=== PATIENT | female | born 1980 | race Hispanic/Latino ===

== ENCOUNTER 2017-07-01 08:15 | Inpatient (IN) | payer OTHER ==
[2017-07-01] MEDS ORDERED: NACL 0.9% 1000 ML 1,000 ML ONE ×2 (08:19→15:56)
[2017-07-01] MEDS ORDERED: NARCAN 2 MG/2 ML ONE (08:20)
[2017-07-01] MEDS ORDERED: NACL 0.9% 1000 ML 1,000 ML IV ONE (08:20)
[2017-07-01] MEDS ORDERED: QUELICIN IV ONE (08:22)
[2017-07-01] MEDS ORDERED: AMIDATE IV ONE (08:22)
[2017-07-01] MEDS ORDERED: DIPRIVAN 10 MG/ML 1,000 MG/100 ML BOTTLE IV ONE (08:29)
[2017-07-01] MEDS: DIPRIVAN 10 MG/ML 1,000 MG/100 ML BOTTLE IV SCH ×2 (08:33→15:12)
[2017-07-01] MEDS ORDERED: VASELINE LIP THERAPY TP PRN (08:40)
[2017-07-01] MEDS ORDERED: ARTIFICIAL TEARS OPHTH OINT OU PRN (08:40)
[2017-07-01] MEDS ORDERED: ZEMURON IV ONE ×2 (08:44→09:45)
[2017-07-01] MEDS ORDERED: KEPPRA 1,000 MG/NS 0.75% 100ML 1,000 MG/100 ML BAG IV ONE (08:47)
[2017-07-01] MEDS ORDERED: NACL 0.9% 500 ML IV SCH (09:00)
[2017-07-01 09:08] LABS: Basophils % (Auto) 0.3 % (0.0-1.8); Eosinophils % (Auto) 0.2 % (0.0-4.3); Hematocrit 39.7 % (30.3-42.9); Hemoglobin 12.6 gm/dl (10.1-14.3); Mean Corpuscular HGB Conc 32 % (30-34); Mean Corpuscular Hemoglobin 34 pg (28-32); Mean Corpuscular Volume 108 fl (79-97); Platelet Count 258 K/mm3 (140-440); Red Blood Count 3.69 M/mm3 (3.65-5.03); Red Cell Distribution Width 13.8 % (13.2-15.2)
--- NOTE | 2017-07-01 09:26 | XRay Report ---
AP CHEST: HISTORY: Endotracheal tube placement. An endotracheal tube has been inserted which terminates 4 cm superior to the christo. A nasogastric tube is followed to the body of the stomach. Normal heart and mediastinal structures. The lungs are clear. Chronic appearing left postero-lateral seventh rib deformity is noted. 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 IMPRESSION: Adequate placement of the endotracheal tube. No acute cardiopulmonary process identified.
[2017-07-01] MEDS: fentaNYL DRIP Premix 2,000 MCG/100 ML BAG IV SCH ×2 (09:30→15:15)
[2017-07-01 09:50] LABS: Alanine Aminotransferase 43 units/L (7-56); Albumin 4.2 g/dL (3.9-5); Albumin/Globulin Ratio 1.9 %; Alkaline Phosphatase 105 units/L (35-129); Anion Gap 35 mmol/L; BUN/Creatinine Ratio 21; Bilirubin,Total < 0.20 mg/dL (0.1-1.2); Blood Urea Nitrogen 17 mg/dL (7-17); Calcium 8.3 mg/dL (8.4-10.2); Carbon Dioxide 12 mmol/L (22-30); Chloride 100.5 mmol/L (98-107); Glucose 267 mg/dL (65-100); Potassium 4.5 mmol/L (3.6-5.0); Sodium 143 mmol/L (137-145); Total Protein 6.4 g/dL (6.3-8.2)
[2017-07-01 09:56] LABS: Bilirubin,Direct < 0.2 mg/dL (0-0.2)
[2017-07-01 09:58] LABS: Urine Drugs of Abuse Note Disclamer
[2017-07-01 10:00] LABS: ISTAT Base Excess -9; ISTAT HCO3 17.8; ISTAT PCO2 37.8 (35-45); ISTAT PH 7.281 (7.35-7.45); ISTAT PO2 180 (80-105); ISTAT SO2 99; ISTAT TCO2 19
[2017-07-01] MEDS ORDERED: NORCURON IV ONE (10:00)
[2017-07-01 10:19] LABS: Bilirubin,Urine NEG (Negative); Blood,Urine LG (Negative); Ketones,Urine NEG (Negative); Leukocyte Esterase,Urine NEG (Negative); Mucus,Urine FEW /HPF; Nitrite,Urine NEG (Negative); Urobilinogen,Urine < 2.0 mg/dL (<2.0)
[2017-07-01] MEDS ORDERED: [UNRECOGNIZED DRUG - OTHER] IV ONE (10:44)
[2017-07-01] MEDS ORDERED: KETALAR IV ONE ×2 (10:50→12:00)
--- NOTE | 2017-07-01 11:21 | History and Physical Report ---
History of Present Illness Chief complaint: Seizure, Unresponsive History of present illness: 37 YO Female with Unknown PMH presents to ED for evaluation. Pt unable to provide history. Pt history taken from EMS and ED staff. Pt was observed having seizure activity on a [employer] bus. EMS notified, and upon arrival the patient was found to have active seizure activity as well as serum glucose of around 200. On exam the patient was lethargic, and hypoxic. EMS described activity as a generalized tonic clonic seizure. Pt was given Ativan, and versed for recurrent seizure activity. Pt developed respiratory distress suspected due to aspiration of gastric contents. EMS placed a nasal trumpet and actually used an adapter to bag the patient through the nasal trumpet. EMS state that the suspect patient took "Flakka". Pt seen and evaluated in ED and found to be in respiratory distress and is unable to protect her airway. Pt intubated and placed on vent support and admitted to ICU. No reports of fever, chills, CP, Palpitations, NVD, Syncope, Trauma, BRBPR, or known recent ill contacts. Past History Past Medical History: No medical history, other (Unobtainable) Past Surgical History: No surgical history, Other (Unobtainable) Social history: single, smoking, other (Unobtainable) Family history: no significant family history, other (unobtainable) Medications and Allergies Allergies Allergy/AdvReac Type Severity Reaction Status Date / Time Unable to Assess Allergy Verified 07/01/17 08:29 Active Meds: Active Medications Fomepizole (Antizol) 730 mg 15 mg/kg (730 mg) IV ONCE ONE Stop: 07/01/17 10:45 Hydrophilic Ointment (Vaseline Lip Therapy) 1 applic TP Q2HR PRN PRN Reason: Dry Lips Fentanyl Citrate (Fentanyl Drip Premix) 2,000 mcg in 100 mls @ 2.435 mls/hr IV TITR DUANE; 1 MCG/KG/HR PRN Reason: Protocol Last Titration: 07/01/17 10:15 Dose: 4 mcg/kg/hr, 9.74 mls/hr Propofol (Diprivan 10 Mg/Ml) 1,000 mg in 100 mls @ 1.461 mls/hr IV TITR DUANE; 5 MCG/KG/MIN PRN Reason: Protocol Last Titration: 07/01/17 09:50 Dose: 50 mcg/kg/min, 14.61 mls/hr Ketamine HCl (Ketalar) 100 mg IV ONCE ONE Stop: 07/01/17 12:01 Multi-Ingred Cream/Lotion/Oil/Oint (Artificial Tears Ophth Oint) 1 applic OU Q4HR PRN PRN Reason: Dry Eye(s) Sodium Chloride (Nacl 0.9% 500 Ml) 1 ml IV DIRECT DUANE Review of Systems ROS unobtainable: due to mental status Exam - Constitutional Vitals: Temp Pulse Resp BP Pulse Ox 98.3 F 104 H 18 115/77 100 07/01/17 08:29 07/01/17 10:30 07/01/17 10:30 07/01/17 10:30 07/01/17 10:30 General appearance: Present: severe distress - EENT Eyes: Present: PERRL ENT: hearing intact, clear oral mucosa - Neck Neck: Present: supple, normal ROM - Respiratory Respiratory effort: labored Respiratory: bilateral: diminished, rhonchi - Cardiovascular Heart Sounds: Present: S1 & S2. Absent: rub, click - Extremities Extremities: pulses symmetrical, No edema Peripheral Pulses: within normal limits - Abdominal General gastrointestinal: Present: soft, non-tender, non-distended, normal bowel sounds Female genitourinary: Present: normal - Integumentary Integumentary: Present: dry, pale, decreased turgor - Musculoskeletal Musculoskeletal: generalized weakness - Psychiatric Psychiatric: no intact judgment & insight, no memory intact - Neurologic Neurologic: no gait normal Results - Labs CBC & Chem 7: 07/01/17 08:30 07/01/17 10:32 Labs: Abnormal lab results 07/01/17 07/01/17 07/01/17 Range/Units 08:28 08:30 08:30 WBC 18.0 H (4.5-11.0) K/mm3 MCV 108 H (79-97) fl MCH 34 H (28-32) pg Lymph % (Auto) 10.9 L (13.4-35.0) % Seg Neutrophils % 86.2 H (40.0-70.0) % Seg Neutrophils # 15.5 H (1.8-7.7) K/mm3 POC ABG pH (7.35-7.45) POC ABG pO2 (80-105) Carbon Dioxide 12 L (22-30) mmol/L Glucose 267 H (65-100) mg/dL POC Glucose 213 H (70-105) Calcium 8.3 L (8.4-10.2) mg/dL Salicylates (2.8-20.0) mg/dL 07/01/17 07/01/17 Range/Units 08:30 09:55 WBC (4.5-11.0) K/mm3 MCV (79-97) fl MCH (28-32) pg Lymph % (Auto) (13.4-35.0) % Seg Neutrophils % (40.0-70.0) % Seg Neutrophils # (1.8-7.7) K/mm3 POC ABG pH 7.281 L (7.35-7.45) POC ABG pO2 180 H (80-105) Carbon Dioxide (22-30) mmol/L Glucose (65-100) mg/dL POC Glucose (70-105) Calcium (8.4-10.2) mg/dL Salicylates < 0.3 L (2.8-20.0) mg/dL Assessment and Plan - Patient Problems (1) Sepsis Current Visit: Yes Status: Acute Qualifiers: Sepsis type: S Plan to address problem: Sepsis protocol: IV abx, monitor uop q shift, serial lactic acid, IVF resuscitation, IV pressor support as clinically indicated, blood cultures, Urinalysis, The high probability of a clinically significant, sudden or life threatening deterioration of the [Neurologic, pulmonary, renal] system(s) required my full and direct attention, intervention and personal management. The aggregate critical care time was [65] minutes. This time is in addition to time spent performing reported procedures but includes the following: [x] Data Review and interpretation [x] Patient assessment and monitoring of vital signs [x] Documentation [x] Medication orders and management (2) Acute respiratory failure Current Visit: Yes Status: Acute Qualifiers: Respiratory failure complication: R Plan to address problem: Pulmonary consulted, wean vent as tolerated, SBT daily, daily sedation holiday, ABG, supplemental oxygen, nebs, supportive care. (3) Aspiration pneumonia Current Visit: Yes Status: Acute Qualifiers: Aspiration pneumonia type: due to gastric secretions Laterality: bilateral Lung location: lower lobe of lung Qualified Code(s): J69.0 - Pneumonitis due to inhalation of food and vomit Plan to address problem: Pneumonia protocol: IV abs, supportive care, blood cultures, pulmonary toilet, (4) Encephalopathy Current Visit: Yes Status: Acute Plan to address problem: toxic Encephalopathy: supportive care, poison control notified regarding suspected flakka ingestion. Recommend Fomipazole. and continued monitoring. Treat sepsis, IVF resuscitation, (5) Drug overdose Current Visit: Yes Status: Acute Qualifiers: Encounter type: E Injury intent: I (6) Metabolic acidosis, increased anion gap Current Visit: Yes Status: Suspected Plan to address problem: Poison control notified regarding suspected Flakka ingestion. Fomipazole given in ED. (7) Recurrent seizures Current Visit: Yes Status: Acute Plan to address problem: Keppra therapy, Pt loaded in ED, neuro checks, CT head, supportive care. (8) DVT prophylaxis Current Visit: Yes Status: Acute
[2017-07-01] MEDS ORDERED: MILK OF MAGNESIA PO PRN (11:22)
[2017-07-01] MEDS ORDERED: ALUM-MAG HYDROX-SIMETH 200-200-20MG/5ML PO PRN (11:22)
[2017-07-01] MEDS ORDERED: DULCOLAX PR PRN (11:22)
[2017-07-01] MEDS ORDERED: PROVENTIL IH PRN (11:22)
[2017-07-01 11:35] LABS: Creatine Kinase MB 8.4 ng/mL (0.0-4.0)
--- NOTE | 2017-07-01 11:37 | Cat Scan Report ---
CT HEAD WITHOUT CONTRAST INDICATION: Seizure. COMPARISON: None similar. FINDINGS: Noncontrast head CT demonstrates symmetric ventricles and sulci, allowing for the head tilt, without acute or recent infarct, hemorrhage, mass effect or midline shift. No abnormal extra-axial fluid collections. Posterior fossa structures and basilar cisterns appear within normal limits. Clear imaged paranasal sinuses and mastoid air cells. Intact calvarium. Normal overlying scalp soft tissues. Endotracheal and esophagogastric tubes noted. CONCLUSION: No acute intracranial CT abnormality in this intubated patient, as described. Thank you for the opportunity to participate in this patient's care.
[2017-07-01 11:38] LABS: Anion Gap 22 mmol/L; BUN/Creatinine Ratio 25; Blood Urea Nitrogen 15 mg/dL (7-17); Calcium 7.8 mg/dL (8.4-10.2); Carbon Dioxide 18 mmol/L (22-30); Chloride 107.9 mmol/L (98-107); Creatine Kinase 851 units/L (30-135); Glucose 135 mg/dL (65-100); Potassium 3.8 mmol/L (3.6-5.0); Sodium 144 mmol/L (137-145)
[2017-07-01] MEDS ORDERED: NACL 0.9% IV SCH (12:00)
[2017-07-01] MEDS ORDERED: NACL 0.9% 1000 ML IV ONE (12:00)
[2017-07-01] MEDS ORDERED: ANTIZOL IV SCH (12:00)
--- NOTE | 2017-07-01 12:01 | Emergency Department Report ---
ED General Adult HPI - General Chief complaint: Seizure Stated complaint: SEIZURE Time Seen by Provider: 07/01/17 08:40 Source: EMS Mode of arrival: Stretcher Limitations: Other - History of Present Illness Initial comments: The patient apparently was exhibiting seizure activity on a [employer] bus. At the time of EMS response they considered this to be seizure activity. They described it as a generalized shaking. They did check her glucose and found it to be over 200. They stated that they gave several doses of benzodiazepines to include Versed 2 and Ativan 1 for the seizure activity which they stated was recurrent. The patient became sedated and hypoxic. They placed a nasal trumpet and actually used an adapter to bag the patient through the nasal trumpet. She arrives altered/agitated with the nasal trumpet in place. Her pulse oximetry was reading in the mid to high 90s. Medics somehow believed that the patient had taken "Flakka". I do not know that they had any reason to know that beyond speculation. They stated that they had seen patient's after said indigestion acts like her before. However there was no specific consistent history. -: Sudden Radiation: other (no injury reported) Severity scale (0 -10): 0 Consistency: intermittent Improves with: none Worsens with: none - Related Data Allergies Allergy/AdvReac Type Severity Reaction Status Date / Time Unable to Assess Allergy Verified 07/01/17 08:29 ED Review of Systems ROS: Stated complaint: SEIZURE Other details as noted in HPI Comment: Unobtainable due to pts medical conditions ED Past Medical Hx - Past Medical History Additional medical history: unknown - Surgical History Additional Surgical History: unknown - Social History Smoking Status: Unknown if ever smoked Substance Use Type: Other (suspected substance abuse) ED Physical Exam - General Limitations: Other - Head Head exam: Present: atraumatic, normocephalic - Eye Eye exam: Present: normal appearance - ENT ENT exam: Present: mucous membranes moist - Neck Neck exam: Present: normal inspection - Respiratory Respiratory exam: Present: normal lung sounds bilaterally. Absent: respiratory distress - Cardiovascular Cardiovascular Exam: Present: regular rate, normal rhythm. Absent: systolic murmur, diastolic murmur, rubs, gallop - GI/Abdominal GI/Abdominal exam: Present: soft, normal bowel sounds. Absent: distended, tenderness, guarding, rebound, rigid - Extremities Exam Extremities exam: Present: normal inspection - Back Exam Back exam: Present: normal inspection - Neurological Exam Neurological exam: Present: altered, CN II-XII intact (as testable limited exam dilated pupils reactive no disconjugate case), other (exam is nonfocal). Absent : motor sensory deficit - Psychiatric Psychiatric exam: Present: agitated, flat affect - Skin Skin exam: Present: warm, dry, intact, normal color. Absent: rash ED Course Vital Signs 07/01/17 07/01/17 07/01/17 08:20 08:29 08:30 Temperature 98.3 F Pulse Rate 106 H 139 H 139 H Respiratory 36 H 13 Rate Blood Pressure 141/70 141/70 O2 Sat by Pulse 99 Oximetry 07/01/17 07/01/17 07/01/17 08:40 08:46 09:00 Temperature Pulse Rate 136 H Respiratory 30 H 18 Rate Blood Pressure 168/104 O2 Sat by Pulse 100 100 Oximetry 07/01/17 07/01/17 07/01/17 09:12 09:15 09:16 Temperature Pulse Rate 140 H 134 H Respiratory 20 23 Rate Blood Pressure 215/176 212/185 O2 Sat by Pulse 100 Oximetry 07/01/17 07/01/17 07/01/17 09:30 09:32 09:34 Temperature Pulse Rate 130 H Respiratory 17 Rate Blood Pressure 170/143 O2 Sat by Pulse 100 127 H Oximetry 07/01/17 07/01/17 07/01/17 09:45 10:00 10:15 Temperature Pulse Rate 130 H 132 H 113 H Respiratory 18 30 H 18 Rate Blood Pressure 118/69 118/69 124/82 O2 Sat by Pulse 100 100 100 Oximetry 07/01/17 07/01/17 07/01/17 10:24 10:30 10:45 Temperature Pulse Rate 104 H 100 H Respiratory 18 18 18 Rate Blood Pressure 115/77 113/75 O2 Sat by Pulse 100 100 Oximetry 07/01/17 07/01/17 07/01/17 11:20 11:30 11:45 Temperature Pulse Rate 92 H 87 Respiratory 18 18 Rate Blood Pressure 127/87 126/87 130/87 O2 Sat by Pulse Oximetry - Reevaluation(s) Reevaluation #1: Patient required R side to protect her airway and to facilitate medical management. This was done without difficulty. An orogastric tube was also placed. The patient remained stable as far as her pulse oximetry and vital signs. She continued to be severely agitated. She required neuromuscular blockade after she maxed out on propofol and fentanyl. In addition she was given ketamine for sedation. I spoke to the manager of warehouse at poison control center. We agreed that it would be prudent to give the patient one dose of fomepizole considering her high anion gap metabolic acidosis and seizures. She was also noted to be hypo- Calcemic. She was given calcium gluconate. She was given IV fluids. Additional workup to include volatile alcohols as well as as osmolality and CK were ordered. Ultimately the patient was admitted by Dr. Sosa of the hospitalist service to the intensive care unit for further evaluation and treatment. 07/01/17 12:47 Reevaluation #2: Patient does have an elevated lactic acid and metabolic acidosis. However, this is all after recurrent seizures. It is possibly explainable considering this. The white count is 18,000. I don't think that is diagnostic in any way. I will leave the choice as to antibiotic coverage up to Dr. Sosa. I have found no focus of infection. 07/01/17 12:52 ED Medical Decision Making - Lab Data Result diagrams: 07/01/17 08:30 07/01/17 10:32 Laboratory Results - last 24 hr 07/01/17 07/01/17 07/01/17 08:30 08:30 08:30 WBC 18.0 H RBC 3.69 Hgb 12.6 Hct 39.7 MCV 108 H MCH 34 H MCHC 32 RDW 13.8 Plt Count 258 Lymph % (Auto) 10.9 L [place] % (Auto) 2.4 Eos % (Auto) 0.2 Baso % (Auto) 0.3 Lymph # 2.0 [place] # 0.4 Eos # 0.0 Baso # 0.1 Seg Neutrophils % 86.2 H Seg Neutrophils # 15.5 H POC ABG pH POC ABG pCO2 POC ABG pO2 POC ABG HCO3 POC ABG Total CO2 POC ABG O2 Sat POC ABG Base Excess FiO2 Sodium 143 Potassium 4.5 Chloride 100.5 Carbon Dioxide 12 L Anion Gap 35 BUN 17 Creatinine 0.8 Estimated GFR > 60 BUN/Creatinine Ratio 21 Glucose 267 H Calcium 8.3 L Magnesium 2.20 Total Bilirubin < 0.20 Direct Bilirubin < 0.2 AST 40 ALT 43 Alkaline Phosphatase 105 Total Protein 6.4 Albumin 4.2 Albumin/Globulin Ratio 1.9 Urine Color Urine Turbidity Urine pH Ur Specific [place] Urine Protein Urine Glucose (UA) Urine Ketones Urine Blood Urine Nitrite Urine Bilirubin Urine Urobilinogen Ur Leukocyte Esterase Urine WBC (Auto) Urine RBC (Auto) U Epithel Cells (Auto) Urine Mucus Urine HCG, Qual 07/01/17 07/01/17 09:49 09:55 WBC RBC Hgb Hct MCV MCH MCHC RDW Plt Count Lymph % (Auto) [place] % (Auto) Eos % (Auto) Baso % (Auto) Lymph # [place] # Eos # Baso # Seg Neutrophils % Seg Neutrophils # POC ABG pH 7.281 L POC ABG pCO2 37.8 POC ABG pO2 180 H POC ABG HCO3 17.8 POC ABG Total CO2 19 POC ABG O2 Sat 99 POC ABG Base Excess -9 FiO2 50 Sodium Potassium Chloride Carbon Dioxide Anion Gap BUN Creatinine Estimated GFR BUN/Creatinine Ratio Glucose Calcium Magnesium Total Bilirubin Direct Bilirubin AST ALT Alkaline Phosphatase Total Protein Albumin Albumin/Globulin Ratio Urine Color Red Urine Turbidity Clear Urine pH 5.0 Ur Specific [place] 1.013 Urine Protein 30 mg/dl Urine Glucose (UA) 150 Urine Ketones Neg Urine Blood Lg Urine Nitrite Neg Urine Bilirubin Neg Urine Urobilinogen < 2.0 Ur Leukocyte Esterase Neg Urine WBC (Auto) 1.0 Urine RBC (Auto) 1.0 U Epithel Cells (Auto) 1.0 Urine Mucus Few Urine HCG, Qual Negative Laboratory Results - last 24 hr 07/01/17 07/01/17 07/01/17 08:30 08:30 08:30 WBC 18.0 H RBC 3.69 Hgb 12.6 Hct 39.7 MCV 108 H MCH 34 H MCHC 32 RDW 13.8 Plt Count 258 Lymph % (Auto) 10.9 L [place] % (Auto) 2.4 Eos % (Auto) 0.2 Baso % (Auto) 0.3 Lymph # 2.0 [place] # 0.4 Eos # 0.0 Baso # 0.1 Seg Neutrophils % 86.2 H Seg Neutrophils # 15.5 H POC ABG pH POC ABG pCO2 POC ABG pO2 POC ABG HCO3 POC ABG Total CO2 POC ABG O2 Sat POC ABG Base Excess FiO2 Sodium 143 Potassium 4.5 Chloride 100.5 Carbon Dioxide 12 L Anion Gap 35 BUN 17 Creatinine 0.8 Estimated GFR > 60 BUN/Creatinine Ratio 21 Glucose 267 H Calcium 8.3 L Magnesium 2.20 Total Bilirubin < 0.20 Direct Bilirubin < 0.2 AST 40 ALT 43 Alkaline Phosphatase 105 Total Protein 6.4 Albumin 4.2 Albumin/Globulin Ratio 1.9 Urine Color Urine Turbidity Urine pH Ur Specific [place] Urine Protein Urine Glucose (UA) Urine Ketones Urine Blood Urine Nitrite Urine Bilirubin Urine Urobilinogen Ur Leukocyte Esterase Urine WBC (Auto) Urine RBC (Auto) U Epithel Cells (Auto) Urine Mucus Urine HCG, Qual 07/01/17 07/01/17 09:49 09:55 WBC RBC Hgb Hct MCV MCH MCHC RDW Plt Count Lymph % (Auto) [place] % (Auto) Eos % (Auto) Baso % (Auto) Lymph # [place] # Eos # Baso # Seg Neutrophils % Seg Neutrophils # POC ABG pH 7.281 L POC ABG pCO2 37.8 POC ABG pO2 180 H POC ABG HCO3 17.8 POC ABG Total CO2 19 POC ABG O2 Sat 99 POC ABG Base Excess -9 FiO2 50 Sodium Potassium Chloride Carbon Dioxide Anion Gap BUN Creatinine Estimated GFR BUN/Creatinine Ratio Glucose Calcium Magnesium Total Bilirubin Direct Bilirubin AST ALT Alkaline Phosphatase Total Protein Albumin Albumin/Globulin Ratio Urine Color Red Urine Turbidity Clear Urine pH 5.0 Ur Specific [place] 1.013 Urine Protein 30 mg/dl Urine Glucose (UA) 150 Urine Ketones Neg Urine Blood Lg Urine Nitrite Neg Urine Bilirubin Neg Urine Urobilinogen < 2.0 Ur Leukocyte Esterase Neg Urine WBC (Auto) 1.0 Urine RBC (Auto) 1.0 U Epithel Cells (Auto) 1.0 Urine Mucus Few Urine HCG, Qual Negative Laboratory Results - last 24 hr 07/01/17 07/01/17 07/01/17 08:28 08:30 08:30 WBC 18.0 H RBC 3.69 Hgb 12.6 Hct 39.7 MCV 108 H MCH 34 H MCHC 32 RDW 13.8 Plt Count 258 Lymph % (Auto) 10.9 L [place] % (Auto) 2.4 Eos % (Auto) 0.2 Baso % (Auto) 0.3 Lymph # 2.0 [place] # 0.4 Eos # 0.0 Baso # 0.1 Seg Neutrophils % 86.2 H Seg Neutrophils # 15.5 H POC ABG pH POC ABG pCO2 POC ABG pO2 POC ABG HCO3 POC ABG Total CO2 POC ABG O2 Sat POC ABG Base Excess FiO2 Sodium 143 Potassium 4.5 Chloride 100.5 Carbon Dioxide 12 L Anion Gap 35 BUN 17 Creatinine 0.8 Estimated GFR > 60 BUN/Creatinine Ratio 21 Glucose 267 H POC Glucose 213 H Osmolality Lactic Acid Calcium 8.3 L Magnesium Total Bilirubin < 0.20 Direct Bilirubin < 0.2 AST 40 ALT 43 Alkaline Phosphatase 105 Total Creatine Kinase CK-MB (CK-2) CK-MB (CK-2) Rel Index Total Protein 6.4 Albumin 4.2 Albumin/Globulin Ratio 1.9 Urine Color Urine Turbidity Urine pH Ur Specific [place] Urine Protein Urine Glucose (UA) Urine Ketones Urine Blood Urine Nitrite Urine Bilirubin Urine Urobilinogen Ur Leukocyte Esterase Urine WBC (Auto) Urine RBC (Auto) U Epithel Cells (Auto) Urine Mucus Urine HCG, Qual Salicylates Urine Opiates Screen Urine Methadone Screen Acetaminophen Ur Barbiturates Screen Ur Phencyclidine Scrn Ur Amphetamines Screen U Benzodiazepines Scrn Urine Cocaine Screen U Marijuana (THC) Screen Drugs of Abuse Note Plasma/Serum Alcohol Blood Type Antibody Screen 07/01/17 07/01/17 07/01/17 08:30 08:30 08:30 WBC RBC Hgb Hct MCV MCH MCHC RDW Plt Count Lymph % (Auto) [place] % (Auto) Eos % (Auto) Baso % (Auto) Lymph # [place] # Eos # Baso # Seg Neutrophils % Seg Neutrophils # POC ABG pH POC ABG pCO2 POC ABG pO2 POC ABG HCO3 POC ABG Total CO2 POC ABG O2 Sat POC ABG Base Excess FiO2 Sodium Potassium Chloride Carbon Dioxide Anion Gap BUN Creatinine Estimated GFR BUN/Creatinine Ratio Glucose POC Glucose Osmolality Lactic Acid Calcium Magnesium Total Bilirubin Direct Bilirubin AST ALT Alkaline Phosphatase Total Creatine Kinase CK-MB (CK-2) CK-MB (CK-2) Rel Index Total Protein Albumin Albumin/Globulin Ratio Urine Color Urine Turbidity Urine pH Ur Specific [place] Urine Protein Urine Glucose (UA) Urine Ketones Urine Blood Urine Nitrite Urine Bilirubin Urine Urobilinogen Ur Leukocyte Esterase Urine WBC (Auto) Urine RBC (Auto) U Epithel Cells (Auto) Urine Mucus Urine HCG, Qual Salicylates < 0.3 L Urine Opiates Screen Urine Methadone Screen Acetaminophen < 15.0 Ur Barbiturates Screen Ur Phencyclidine Scrn Ur Amphetamines Screen U Benzodiazepines Scrn Urine Cocaine Screen U Marijuana (THC) Screen Drugs of Abuse Note Plasma/Serum Alcohol < 0.01 Blood Type Antibody Screen 07/01/17 07/01/17 07/01/17 08:30 08:35 09:49 WBC RBC Hgb Hct MCV MCH MCHC RDW Plt Count Lymph % (Auto) [place] % (Auto) Eos % (Auto) Baso % (Auto) Lymph # [place] # Eos # Baso # Seg Neutrophils % Seg Neutrophils # POC ABG pH POC ABG pCO2 POC ABG pO2 POC ABG HCO3 POC ABG Total CO2 POC ABG O2 Sat POC ABG Base Excess FiO2 Sodium Potassium Chloride Carbon Dioxide Anion Gap BUN Creatinine Estimated GFR BUN/Creatinine Ratio Glucose POC Glucose Osmolality Lactic Acid Calcium Magnesium 2.20 Total Bilirubin Direct Bilirubin AST ALT Alkaline Phosphatase Total Creatine Kinase CK-MB (CK-2) CK-MB (CK-2) Rel Index Total Protein Albumin Albumin/Globulin Ratio Urine Color Red Urine Turbidity Clear Urine pH 5.0 Ur Specific [place] 1.013 Urine Protein 30 mg/dl Urine Glucose (UA) 150 Urine Ketones Neg Urine Blood Lg Urine Nitrite Neg Urine Bilirubin Neg Urine Urobilinogen < 2.0 Ur Leukocyte Esterase Neg Urine WBC (Auto) 1.0 Urine RBC (Auto) 1.0 U Epithel Cells (Auto) 1.0 Urine Mucus Few Urine HCG, Qual Negative Salicylates Urine Opiates Screen Urine Methadone Screen Acetaminophen Ur Barbiturates Screen Ur Phencyclidine Scrn Ur Amphetamines Screen U Benzodiazepines Scrn Urine Cocaine Screen U Marijuana (THC) Screen Drugs of Abuse Note Plasma/Serum Alcohol Blood Type O POSITIVE Antibody Screen Negative 07/01/17 07/01/17 07/01/17 09:49 09:55 10:32 WBC RBC Hgb Hct MCV MCH MCHC RDW Plt Count Lymph % (Auto) [place] % (Auto) Eos % (Auto) Baso % (Auto) Lymph # [place] # Eos # Baso # Seg Neutrophils % Seg Neutrophils # POC ABG pH 7.281 L POC ABG pCO2 37.8 POC ABG pO2 180 H POC ABG HCO3 17.8 POC ABG Total CO2 19 POC ABG O2 Sat 99 POC ABG Base Excess -9 FiO2 50 Sodium Potassium Chloride Carbon Dioxide Anion Gap BUN Creatinine Estimated GFR BUN/Creatinine Ratio Glucose POC Glucose Osmolality 301 Lactic Acid Calcium Magnesium Total Bilirubin Direct Bilirubin AST ALT Alkaline Phosphatase Total Creatine Kinase CK-MB (CK-2) CK-MB (CK-2) Rel Index Total Protein Albumin Albumin/Globulin Ratio Urine Color Urine Turbidity Urine pH Ur Specific [place] Urine Protein Urine Glucose (UA) Urine Ketones Urine Blood Urine Nitrite Urine Bilirubin Urine Urobilinogen Ur Leukocyte Esterase Urine WBC (Auto) Urine RBC (Auto) U Epithel Cells (Auto) Urine Mucus Urine HCG, Qual Salicylates Urine Opiates Screen Presumptive negative Urine Methadone Screen Presumptive negative Acetaminophen Ur Barbiturates Screen Presumptive negative Ur Phencyclidine Scrn Presumptive negative Ur Amphetamines Screen Presumptive negative U Benzodiazepines Scrn Presumptive positive Urine Cocaine Screen Presumptive negative U Marijuana (THC) Screen Presumptive positive Drugs of Abuse Note Disclamer Plasma/Serum Alcohol Blood Type Antibody Screen 07/01/17 07/01/17 10:32 10:49 WBC RBC Hgb Hct MCV MCH MCHC RDW Plt Count Lymph % (Auto) [place] % (Auto) Eos % (Auto) Baso % (Auto) Lymph # [place] # Eos # Baso # Seg Neutrophils % Seg Neutrophils # POC ABG pH POC ABG pCO2 POC ABG pO2 POC ABG HCO3 POC ABG Total CO2 POC ABG O2 Sat POC ABG Base Excess FiO2 Sodium 144 Potassium 3.8 Chloride 107.9 H Carbon Dioxide 18 L Anion Gap 22 BUN 15 Creatinine 0.6 L Estimated GFR > 60 BUN/Creatinine Ratio 25 Glucose 135 H POC Glucose Osmolality Lactic Acid 4.20 H* Calcium 7.8 L Magnesium Total Bilirubin Direct Bilirubin AST ALT Alkaline Phosphatase Total Creatine Kinase 851 H CK-MB (CK-2) 8.4 H CK-MB (CK-2) Rel Index 0.9 Total Protein Albumin Albumin/Globulin Ratio Urine Color Urine Turbidity Urine pH Ur Specific [place] Urine Protein Urine Glucose (UA) Urine Ketones Urine Blood Urine Nitrite Urine Bilirubin Urine Urobilinogen Ur Leukocyte Esterase Urine WBC (Auto) Urine RBC (Auto) U Epithel Cells (Auto) Urine Mucus Urine HCG, Qual Salicylates Urine Opiates Screen Urine Methadone Screen Acetaminophen Ur Barbiturates Screen Ur Phencyclidine Scrn Ur Amphetamines Screen U Benzodiazepines Scrn Urine Cocaine Screen U Marijuana (THC) Screen Drugs of Abuse Note Plasma/Serum Alcohol Blood Type Antibody Screen - EKG Data -: EKG Interpreted by Me EKG shows normal: sinus rhythm, axis, intervals, QRS complexes, ST-T waves Rate: tachycardia - EKG Data Interpretation: no acute changes - Radiology Data interpreted by me: Chest x-ray showed no acute process. Endotracheal tube adequate placement position. Critical Care Time: Yes Critical care time in (mins) excluding proc time.: 120 Critical care attestation.: If time is entered above; I have spent that time in minutes in the direct care of this critically ill patient, excluding procedure time. ED Disposition Clinical Impression: Recurrent seizures, Metabolic acidosis, increased anion gap Altered mental status Qualifiers: Altered mental status type: delirium Qualified Code(s): R41.0 - Disorientation , unspecified Disposition: DC-[id number] OP ADMIT IP TO THIS HOSP Is pt being admited?: Yes Does the pt Need Aspirin: Yes Condition: Stable Referrals: PRIMARY CARE,MD [Primary Care Provider] - 3-5 Days Time of Disposition: 12:54
[2017-07-01] MEDS ORDERED: CALCIUM GLUCONATE 1,000 MG in NACL 0.9% 100 ML IV ONE (12:30)
[2017-07-01] MEDS ORDERED: ASPIRIN PR ONE ×2 (12:54→16:24)
[2017-07-01] MEDS: UNASYN/NS 3 GM/100 ML 3 GM/100 ML BAG IV SCH ×2 (13:49→18:41)
[2017-07-01] MEDS ORDERED: NACL 0.9% 500 ML 500 ML IV PRN (16:08)
[2017-07-01] MEDS ORDERED: SODIUM BICARBONATE FEEDTUBE PRN (16:14)
[2017-07-01] MEDS ORDERED: PANCREAZE DR 10,500 UNIT FEEDTUBE PRN (16:14)
[2017-07-01] MEDS ORDERED: SIMPLE SYRUP FEEDTUBE PRN ×2 (16:14)
[2017-07-01] MEDS ORDERED: UNASYN/NS 3 GM/100 ML 3 GM/100 ML BAG IV ONE (18:36)
[2017-07-01] MEDS ORDERED: NACL 0.9% 500 ML 500 ML IV ONE (19:25)
[2017-07-01] MEDS ORDERED: ATIVAN IV ONE (19:25)
[2017-07-01] MEDS ORDERED: BENADRYL IV ONE (20:55)
[2017-07-01] MEDS ORDERED: NACL 0.9% 500 ML 500 ML ONE (21:08)
[2017-07-02] MEDS ORDERED: BENADRYL ONE (00:34)
[2017-07-02] MEDS ORDERED: ATIVAN ONE (00:35)
[2017-07-02] MEDS: UNASYN/NS 3 GM/100 ML 3 GM/100 ML BAG IV SCH (01:54)
--- NOTE | 2017-07-02 02:10 | XRay Report ---
FINAL REPORT EXAM: XR CHEST 1V AP HISTORY: follow up respiratory failure TECHNIQUE: A portable semi-erect view of the chest was obtained. FINDINGS: Heart size and mediastinum appear normal. There are no acute infiltrates or effusions. The lungs are not congested. The skeletal structures reveal a well-healed fracture of the left 7th rib posteriorly. There is severe arthritic changes of the right global joint with calcifications in the joint space. There is also extensive calcifications in the left glenohumeral joint space. IMPRESSION: No acute process in the chest. 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
[2017-07-02] MEDS: CLEOCIN 600 MG/50 mL 600 MG/50 ML BAG IV SCH ×2 (11:49→18:46)
[2017-07-02] MEDS ORDERED: HALDOL IM PRN (15:26)
--- NOTE | 2017-07-02 16:35 | Progress Note ---
Assessment and Plan Assessment and plan: Drug overdose - UDS is positive for benzo and marijuana - Supportive care, close follow-up for withdrawal - Mental as consult Acute toxic encephalopathy - Due to drug overdose - Frequent neuro checks Acute hypoxic respiratory failure - Patient was intubated and later extubated after evaluated by pulmonary - Breathing treatments, nebs Sepsis secondary to Aspiration pneumonitis - Patient is on IV clindamycin - We will monitor DVT prophylaxis - On Lovenox Disposition - Continue inpatient care History Interval history: Patient was seen and evaluated this morning, patient didn't have any complaints , patient didn't like to talk. Hospitalist Physical - Physical exam Narrative exam: Not in cardiopulmonary distress. The patient appeared well nourished and normally developed. Vital signs as documented. Head exam is unremarkable. No scleral icterus . Neck is without jugular venous distension, thyromegaly, or carotid bruits. Lungs are clear to auscultation. Cardiac exam reveals regular rate and Rhythm. First and second heart sounds normal. No murmurs, rubs or gallops. Abdominal exam reveals normal bowel sounds, no masses, no organomegaly and no aortic enlargement. Extremities are nonedematous and both femoral and pedal pulses are normal. [employer]TLE O[employer] HEAD: Sleepy but abusable and oriented. - Constitutional Vitals: Temp Pulse Resp BP Pulse Ox 99.6 F 82 18 102/65 95 07/02/17 08:33 07/02/17 08:33 07/02/17 08:33 07/02/17 08:33 07/02/17 08:33 General appearance: Present: severe distress Results - Labs CBC & Chem 7: 07/01/17 08:30 07/01/17 10:32 Labs: Laboratory Last Values WBC 18.0 K/mm3 (4.5-11.0) H 07/01/17 08:30 RBC 3.69 M/mm3 (3.65-5.03) 07/01/17 08:30 Hgb 12.6 gm/dl (10.1-14.3) 07/01/17 08:30 Hct 39.7 % (30.3-42.9) 07/01/17 08:30 MCV 108 fl (79-97) H 07/01/17 08:30 MCH 34 pg (28-32) H 07/01/17 08:30 MCHC 32 % (30-34) 07/01/17 08:30 RDW 13.8 % (13.2-15.2) 07/01/17 08:30 Plt Count 258 K/mm3 (140-440) 07/01/17 08:30 Lymph % (Auto) 10.9 % (13.4-35.0) L 07/01/17 08:30 [place] % (Auto) 2.4 % (0.0-7.3) 07/01/17 08:30 Eos % (Auto) 0.2 % (0.0-4.3) 07/01/17 08:30 Baso % (Auto) 0.3 % (0.0-1.8) 07/01/17 08:30 Lymph # 2.0 K/mm3 (1.2-5.4) 07/01/17 08:30 [place] # 0.4 K/mm3 (0.0-0.8) 07/01/17 08:30 Eos # 0.0 K/mm3 (0.0-0.4) 07/01/17 08:30 Baso # 0.1 K/mm3 (0.0-0.1) 07/01/17 08:30 Seg Neutrophils % 86.2 % (40.0-70.0) H 07/01/17 08:30 Seg Neutrophils # 15.5 K/mm3 (1.8-7.7) H 07/01/17 08:30 POC ABG pH 7.281 (7.35-7.45) L 07/01/17 09:55 POC ABG pCO2 37.8 (35-45) 07/01/17 09:55 POC ABG pO2 180 (80-105) H 07/01/17 09:55 POC ABG HCO3 17.8 07/01/17 09:55 POC ABG Total CO2 19 07/01/17 09:55 POC ABG O2 Sat 99 07/01/17 09:55 POC ABG Base Excess -9 07/01/17 09:55 FiO2 50 % 07/01/17 09:55 Sodium 144 mmol/L (137-145) 07/01/17 10:32 Potassium 3.8 mmol/L (3.6-5.0) 07/01/17 10:32 Chloride 107.9 mmol/L (98-107) H 07/01/17 10:32 Carbon Dioxide 18 mmol/L (22-30) L 07/01/17 10:32 Anion Gap 22 mmol/L 07/01/17 10:32 BUN 15 mg/dL (7-17) 07/01/17 10:32 Creatinine 0.6 mg/dL (0.7-1.2) L 07/01/17 10:32 Estimated GFR > 60 ml/min 07/01/17 10:32 BUN/Creatinine Ratio 25 % 07/01/17 10:32 Glucose 135 mg/dL (65-100) H 07/01/17 10:32 POC Glucose 117 (70-105) H 07/02/17 08:41 Ketones Quantitative Negative (Negative) 07/01/17 10:32 Osmolality 301 Mosm/kg 07/01/17 10:32 Lactic Acid 0.60 mmol/L (0.7-2.0) L 07/02/17 10:00 Calcium 7.8 mg/dL (8.4-10.2) L 07/01/17 10:32 Magnesium 2.20 mg/dL (1.7-2.3) 07/01/17 08:30 Total Bilirubin < 0.20 mg/dL (0.1-1.2) 07/01/17 08:30 Direct Bilirubin < 0.2 mg/dL (0-0.2) 07/01/17 08:30 AST 40 units/L (5-40) 07/01/17 08:30 ALT 43 units/L (7-56) 07/01/17 08:30 Alkaline Phosphatase 105 units/L (35-129) 07/01/17 08:30 Total Creatine Kinase 851 units/L (30-135) H 07/01/17 10:32 CK-MB (CK-2) 8.4 ng/mL (0.0-4.0) H 07/01/17 10:32 CK-MB (CK-2) Rel Index 0.9 (0-4) 07/01/17 10:32 Total Protein 6.4 g/dL (6.3-8.2) 07/01/17 08:30 Albumin 4.2 g/dL (3.9-5) 07/01/17 08:30 Albumin/Globulin Ratio 1.9 % 07/01/17 08:30 Urine Color Red (Yellow) 07/01/17 09:49 Urine Turbidity Clear (Clear) 07/01/17 09:49 Urine pH 5.0 (5.0-7.0) 07/01/17 09:49 Ur Specific [place] 1.013 (1.003-1.030) 07/01/17 09:49 Urine Protein 30 mg/dl mg/dL (Negative) 07/01/17 09:49 Urine Glucose (UA) 150 mg/dL (Negative) 07/01/17 09:49 Urine Ketones Neg mg/dL (Negative) 07/01/17 09:49 Urine Blood Lg (Negative) 07/01/17 09:49 Urine Nitrite Neg (Negative) 07/01/17 09:49 Urine Bilirubin Neg (Negative) 07/01/17 09:49 Urine Urobilinogen < 2.0 mg/dL (<2.0) 07/01/17 09:49 Ur Leukocyte Esterase Neg (Negative) 07/01/17 09:49 Urine WBC (Auto) 1.0 /HPF (0.0-6.0) 07/01/17 09:49 Urine RBC (Auto) 1.0 /HPF (0.0-6.0) 07/01/17 09:49 U Epithel Cells (Auto) 1.0 /HPF (0-13.0) 07/01/17 09:49 Urine Mucus Few /HPF 07/01/17 09:49 Urine HCG, Qual Negative (Negative) 07/01/17 09:49 Salicylates < 0.3 mg/dL (2.8-20.0) L 07/01/17 08:30 Urine Opiates Screen Presumptive negative 07/01/17 09:49 Urine Methadone Screen Presumptive negative 07/01/17 09:49 Acetaminophen < 15.0 ug/mL (10.0-30.0) 07/01/17 08:30 Ur Barbiturates Screen Presumptive negative 07/01/17 09:49 Ur Phencyclidine Scrn Presumptive negative 07/01/17 09:49 Ur Amphetamines Screen Presumptive negative 07/01/17 09:49 U Benzodiazepines Scrn Presumptive positive 07/01/17 09:49 Urine Cocaine Screen Presumptive negative 07/01/17 09:49 U Marijuana (THC) Screen Presumptive positive 07/01/17 09:49 Drugs of Abuse Note Disclamer 07/01/17 09:49 Plasma/Serum Alcohol < 0.01 gm% (0-0.07) 07/01/17 08:30 Blood Type O POSITIVE 07/01/17 08:35 Antibody Screen Negative 07/01/17 08:35
[2017-07-02] MEDS ORDERED: ATIVAN IV PRN ×2 (17:01→19:43)
[2017-07-02] MEDS ORDERED: ATIVAN PO PRN (17:01)
[2017-07-02 18:44] LABS: Alanine Aminotransferase 51 units/L (7-56); Albumin 3.6 g/dL (3.9-5); Alkaline Phosphatase 87 units/L (35-129); Lipase 15 units/L (13-60); Total Protein 5.4 g/dL (6.3-8.2)
[2017-07-02 19:05] LABS: Bilirubin,Direct < 0.2 mg/dL (0-0.2); Bilirubin,Indirect 0.1 mg/dL
[2017-07-02] MEDS: HALDOL IM PRN (19:30)
[2017-07-02] MEDS: LOVENOX SUB-Q SCH (22:00)
[2017-07-02] MEDS: KEPPRA PO SCH (23:02)
[2017-07-03] MEDS: HALDOL IM PRN ×3 (00:51→20:15)
[2017-07-03] MEDS: CLEOCIN 600 MG/50 mL 600 MG/50 ML BAG IV SCH ×3 (02:39→18:07)
[2017-07-03 06:18] LABS: Hematocrit 40.6 % (30.3-42.9); Hemoglobin 13.5 gm/dl (10.1-14.3); Mean Corpuscular HGB Conc 33 % (30-34); Mean Corpuscular Hemoglobin 35 pg (28-32); Mean Corpuscular Volume 104 fl (79-97); Platelet Count 255 K/mm3 (140-440); Red Blood Count 3.92 M/mm3 (3.65-5.03); Red Cell Distribution Width 13.5 % (13.2-15.2)
[2017-07-03 06:23] LABS: White Blood Count 21.1 K/mm3 (4.5-11.0)
[2017-07-03 06:33] LABS: Anion Gap 35 mmol/L; BUN/Creatinine Ratio 8; Blood Urea Nitrogen 5 mg/dL (7-17); Calcium 9.4 mg/dL (8.4-10.2); Carbon Dioxide 13 mmol/L (22-30); Chloride 101.6 mmol/L (98-107); Glucose 101 mg/dL (65-100); Sodium 146 mmol/L (137-145)
[2017-07-03 07:21] LABS: Basophils % (Manual) 0 % (0.0-1.8); Blastocytes % (Manual) 0 %; Eosinophils % (Manual) 0 % (0.0-4.3)
[2017-07-03 07:22] LABS: Anisocytosis 1+; Diff Status Complete; Hypochromasia 1+
[2017-07-03] MEDS: KEPPRA PO SCH (09:25)
[2017-07-03] MEDS: D5NS 1,000 ML IV SCH (11:40)
--- NOTE | 2017-07-03 13:26 | Consultation ---
History of Present Illness - Reason for Consult Consult date: 07/03/17 Reason for consult: Mental Health Evaluation Requesting physician: SOPHIA THOMAS - Chief Complaint Chief complaint: "Patient lethargic" - History of Present Psychiatric Illness 37 YO Female with Unknown PMH presents to ED for evaluation. Psychiatry consulted because of possible overdose. Today patient is lethargic, but open her eyes to her name. Attempts was made to interview patient, but unsuccessful. Per the staff, patient has been agitated and currently in restraints. Medications and Allergies Allergies Allergy/AdvReac Type Severity Reaction Status Date / Time Unable to Assess Allergy Verified 07/01/17 08:29 Home Medications Medication Instructions Recorded Confirmed Last Taken Type No Known Home Medications [No 07/02/17 07/02/17 Unknown History Reported Home Medications] Active Meds: Active Medications Al Hydrox/Mg Hydrox/Simethicone (Alum-Mag Hydrox-Simeth 093-862-24lg/5ml) 30 ml PO Q4H PRN PRN Reason: Indigestion Albuterol (Proventil) 2.5 mg IH Q3HRT PRN PRN Reason: Shortness Of Breath Lipase/Protease/Amylase (Pancreaze Dr 10,500 Unit) 1 each FEEDTUBE PRN PRN PRN Reason: For Clogged Feeding Tube Bisacodyl (Dulcolax) 10 mg CO QDAY PRN PRN Reason: constipation unrelieved by MOM Enoxaparin Sodium (Lovenox) 40 mg SUB-Q QDAY@2200 DUANE Last Admin: 07/02/17 22:00 Dose: 40 mg Haloperidol Lactate (Haldol) 5 mg IM Q4H PRN PRN Reason: Agitation Last Admin: 07/03/17 09:25 Dose: 5 mg Hydrophilic Ointment (Vaseline Lip Therapy) 1 applic TP Q2HR PRN PRN Reason: Dry Lips Sodium Chloride (Nacl 0.9% 500 Ml) 500 mls @ 999 mls/hr IV PRN PRN PRN Reason: Hypotension Last Infusion: 07/01/17 16:42 Dose: Infused Clindamycin HCl (Cleocin 600 Mg/50 Ml) 600 mg in 50 mls @ 100 mls/hr IV Q8H DUANE PRN Reason: Protocol Last Admin: 07/03/17 09:25 Dose: 100 mls/hr Levetiracetam 500 mg/ Sodium (Chloride) 105 mls @ 400 mls/hr IV Q12HR DUANE Dextrose/Sodium Chloride (D5ns) 1,000 mls @ 75 mls/hr IV DIRECT DUANE Last Admin: 07/03/17 11:40 Dose: 75 mls/hr Lorazepam (Ativan) 2 mg IV Q1HR PRN PRN Reason: CIWA-Ar 8-15 Lorazepam (Ativan) 4 mg PO Q1HR PRN PRN Reason: CIWA-Ar 16-25 Lorazepam (Ativan) 4 mg IV Q15MIN PRN PRN Reason: CIWA-Ar >25 Magnesium Hydroxide (Milk Of Magnesia) 30 ml PO Q4H PRN PRN Reason: Constipation Multi-Ingred Cream/Lotion/Oil/Oint (Artificial Tears Ophth Oint) 1 applic OU Q4HR PRN PRN Reason: Dry Eye(s) Simple Syrup (Simple Syrup) 15 ml FEEDTUBE PRN PRN PRN Reason: Hypoglycemia Simple Syrup (Simple Syrup) 30 ml FEEDTUBE PRN PRN PRN Reason: Hypoglycemia Sodium Bicarbonate (Sodium Bicarbonate) 325 mg FEEDTUBE PRN PRN PRN Reason: For Clogged Feeding Tube Past psychiatric history - Past Medical History Past Medical History: other (Unable to obtain) Past Surgical History: Other (Unable to obtain) - past Psychiatric treatment and history psychiatric treatment history: Unable to obtain psy hx and fam psy hx. - Social History Social history: other (Unable to obtain) Mental Status Exam - Vital signs Last Vital Signs Temp 98.2 F 07/03/17 05:35 Pulse 112 H 07/03/17 05:35 Resp 18 07/03/17 05:35 BP 125/82 07/03/17 05:35 Pulse Ox 93 07/03/17 10:00 - Exam Narrative exam: Unable to complete MSE because of patient's medical condition. Results Result Diagrams: 07/04/17 09:09 07/04/17 09:09 Abnormal lab results 07/02/17 07/03/17 07/03/17 Range/Units 17:59 06:00 06:00 WBC 21.1 H (4.5-11.0) K/mm3 MCV 104 H (79-97) fl MCH 35 H (28-32) pg Monocytes % (Manual) 8.0 H (0.0-7.3) % Seg Neutrophils # Man 9.7 H (1.8-7.7) K/mm3 Monocytes # (Manual) 1.7 H (0.0-0.8) K/mm3 Sodium 146 H (137-145) mmol/L Carbon Dioxide 13 L (22-30) mmol/L BUN 5 L (7-17) mg/dL Creatinine 0.6 L (0.7-1.2) mg/dL Glucose 101 H (65-100) mg/dL Phosphorus 1.80 L (2.5-4.5) mg/dL AST 51 H (5-40) units/L Total Protein 5.4 L (6.3-8.2) g/dL Albumin 3.6 L (3.9-5) g/dL All other labs normal. Assessment and Plan Assessment and plan: Impression: Today patient is lethargic, but open her eyes to her name. Patient in restraints. Positive for marijuana/benzos. Medical: Acute Toxic Encephalopathy Recommendation/Plan: Will follow up in 24 hours to complete psy assessment. Modify Haldol to 2 mg IM Q6hrs for agitation. Use the Ativan per CIWA protocol only. Delirium precautions below: 1. Frequently reorient patient and involve him/her in their care (simple explanations of procedures, tests, medications). 2. Lights on and shades open during daytime hours. 3. Try to avoid unnecessary interruptions to sleep during nighttime hours. 4. Obtain glasses, hearing aids from home if patient uses these at baseline. 5. Avoid medications that may exacerbate delirium (especially narcotics, barbiturates, ambien, lunesta, benzos, and medications with excessive anticholinergic properties).
--- NOTE | 2017-07-03 16:59 | Progress Note ---
Assessment and Plan Assessment and plan: Drug overdose, patient took flakka(Zombie drug) - UDS is positive for benzo and marijuana - Supportive care, close follow-up for withdrawal - Mental health consult apprecuated Acute toxic encephalopathy - Due to drug overdose - Frequent neuro checks Acute hypoxic respiratory failure - Patient was intubated and later extubated after evaluated by pulmonary - Breathing treatments, nebs - Patient is able to take care of her airways Sepsis secondary to Aspiration pneumonitis - Patient is on IV clindamycin - We will monitor DVT prophylaxis - On Lovenox Disposition - Continue inpatient care History Interval history: Patient was seen and evaluated this morning, patient was lethargic and on 4 point restraints. Hospitalist Physical - Physical exam Narrative exam: Not in cardiopulmonary distress. Patient was lethargic and on 4 point restraints. The patient appeared well nourished and normally developed. Vital signs as documented. Head exam is unremarkable. No scleral icterus . Neck is without jugular venous distension, thyromegaly, or carotid bruits. Lungs are clear to auscultation. Cardiac exam reveals regular rate and Rhythm. First and second heart sounds normal. No murmurs, rubs or gallops. Abdominal exam reveals normal bowel sounds, no masses, no organomegaly and no aortic enlargement. Extremities are nonedematous and both femoral and pedal pulses are normal. 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 - Constitutional Vitals: Temp Pulse Resp BP Pulse Ox 98.2 F 112 H 18 125/82 93 07/03/17 05:35 07/03/17 05:35 07/03/17 05:35 07/03/17 05:35 07/03/17 10:00 General appearance: Present: severe distress Results - Labs CBC & Chem 7: 07/03/17 06:00 07/03/17 06:00 Labs: Laboratory Last Values WBC 21.1 K/mm3 (4.5-11.0) H 07/03/17 06:00 RBC 3.92 M/mm3 (3.65-5.03) 07/03/17 06:00 Hgb 13.5 gm/dl (10.1-14.3) 07/03/17 06:00 Hct 40.6 % (30.3-42.9) 07/03/17 06:00 MCV 104 fl (79-97) H 07/03/17 06:00 MCH 35 pg (28-32) H 07/03/17 06:00 MCHC 33 % (30-34) 07/03/17 06:00 RDW 13.5 % (13.2-15.2) 07/03/17 06:00 Plt Count 255 K/mm3 (140-440) 07/03/17 06:00 Lymph % (Auto) 10.9 % (13.4-35.0) L 07/01/17 08:30 [place] % (Auto) 2.4 % (0.0-7.3) 07/01/17 08:30 Eos % (Auto) 0.2 % (0.0-4.3) 07/01/17 08:30 Baso % (Auto) 0.3 % (0.0-1.8) 07/01/17 08:30 Lymph # 2.0 K/mm3 (1.2-5.4) 07/01/17 08:30 [place] # 0.4 K/mm3 (0.0-0.8) 07/01/17 08:30 Eos # 0.0 K/mm3 (0.0-0.4) 07/01/17 08:30 Baso # 0.1 K/mm3 (0.0-0.1) 07/01/17 08:30 Add Manual Diff Complete 07/03/17 06:00 Total Counted 100 07/03/17 06:00 Seg Neutrophils % 86.2 % (40.0-70.0) H 07/01/17 08:30 Seg Neuts % (Manual) 46.0 % (40.0-70.0) 07/03/17 06:00 Band Neutrophils % 24.0 % 07/03/17 06:00 Lymphocytes % (Manual) 22.0 % (13.4-35.0) 07/03/17 06:00 Reactive Lymphs % (Man) 0 % 07/03/17 06:00 Monocytes % (Manual) 8.0 % (0.0-7.3) H 07/03/17 06:00 Eosinophils % (Manual) 0 % (0.0-4.3) 07/03/17 06:00 Basophils % (Manual) 0 % (0.0-1.8) 07/03/17 06:00 Metamyelocytes % 0 % 07/03/17 06:00 Myelocytes % 0 % 07/03/17 06:00 Promyelocytes % 0 % 07/03/17 06:00 Blast Cells % 0 % 07/03/17 06:00 Nucleated RBC % Not Reportable 07/03/17 06:00 Seg Neutrophils # 15.5 K/mm3 (1.8-7.7) H 07/01/17 08:30 Seg Neutrophils # Man 9.7 K/mm3 (1.8-7.7) H 07/03/17 06:00 Band Neutrophils # 5.1 K/mm3 07/03/17 06:00 Lymphocytes # (Manual) 4.6 K/mm3 (1.2-5.4) 07/03/17 06:00 Abs React Lymphs (Man) 0.0 K/mm3 07/03/17 06:00 Monocytes # (Manual) 1.7 K/mm3 (0.0-0.8) H 07/03/17 06:00 Eosinophils # (Manual) 0.0 K/mm3 (0.0-0.4) 07/03/17 06:00 Basophils # (Manual) 0.0 K/mm3 (0.0-0.1) 07/03/17 06:00 Metamyelocytes # 0.0 K/mm3 07/03/17 06:00 Myelocytes # 0.0 K/mm3 07/03/17 06:00 Promyelocytes # 0.0 K/mm3 07/03/17 06:00 Blast Cells # 0.0 K/mm3 07/03/17 06:00 WBC Morphology Not Reportable 07/03/17 06:00 Hypersegmented Neuts Not Reportable 07/03/17 06:00 Hyposegmented Neuts Not Reportable 07/03/17 06:00 Hypogranular Neuts Not Reportable 07/03/17 06:00 Smudge Cells Not Reportable 07/03/17 06:00 Toxic Granulation Not Reportable 07/03/17 06:00 Toxic Vacuolation Not Reportable 07/03/17 06:00 Dohle Bodies Not Reportable 07/03/17 06:00 Pelger-Huet Anomaly Not Reportable 07/03/17 06:00 [place] Rods Not Reportable 07/03/17 06:00 Platelet Estimate Appears normal 07/03/17 06:00 Clumped Platelets Not Reportable 07/03/17 06:00 Plt Clumps, EDTA Not Reportable 07/03/17 06:00 Large Platelets Not Reportable 07/03/17 06:00 Giant Platelets Not Reportable 07/03/17 06:00 Platelet Satelliting Not Reportable 07/03/17 06:00 Plt Morphology Comment Not Reportable 07/03/17 06:00 RBC Morphology Not Reportable 07/03/17 06:00 Dimorphic RBCs Not Reportable 07/03/17 06:00 Polychromasia Not Reportable 07/03/17 06:00 Hypochromasia 1+ 07/03/17 06:00 Poikilocytosis Not Reportable 07/03/17 06:00 Anisocytosis 1+ 07/03/17 06:00 Microcytosis Not Reportable 07/03/17 06:00 Macrocytosis Not Reportable 07/03/17 06:00 Spherocytes Not Reportable 07/03/17 06:00 Pappenheimer Bodies Not Reportable 07/03/17 06:00 Sickle Cells Not Reportable 07/03/17 06:00 Target Cells Not Reportable 07/03/17 06:00 Tear Drop Cells Not Reportable 07/03/17 06:00 Ovalocytes Not Reportable 07/03/17 06:00 Helmet Cells Not Reportable 07/03/17 06:00 Gaitan-[place] Bodies Not Reportable 07/03/17 06:00 [place] Rings Not Reportable 07/03/17 06:00 Kevin Cells Not Reportable 07/03/17 06:00 Bite Cells Not Reportable 07/03/17 06:00 Crenated Cell Not Reportable 07/03/17 06:00 Elliptocytes Not Reportable 07/03/17 06:00 Acanthocytes (Spur) Not Reportable 07/03/17 06:00 Rouleaux Not Reportable 07/03/17 06:00 Hemoglobin C Crystals Not Reportable 07/03/17 06:00 Schistocytes Not Reportable 07/03/17 06:00 Malaria parasites Not Reportable 07/03/17 06:00 [place] Bodies Not Reportable 07/03/17 06:00 Hem Pathologist Commnt No 07/03/17 06:00 POC ABG pH 7.281 (7.35-7.45) L 07/01/17 09:55 POC ABG pCO2 37.8 (35-45) 07/01/17 09:55 POC ABG pO2 180 (80-105) H 07/01/17 09:55 POC ABG HCO3 17.8 07/01/17 09:55 POC ABG Total CO2 19 07/01/17 09:55 POC ABG O2 Sat 99 07/01/17 09:55 POC ABG Base Excess -9 07/01/17 09:55 FiO2 50 % 07/01/17 09:55 Sodium 146 mmol/L (137-145) H 07/03/17 06:00 Potassium 4.0 mmol/L (3.6-5.0) 07/03/17 06:00 Chloride 101.6 mmol/L (98-107) 07/03/17 06:00 Carbon Dioxide 13 mmol/L (22-30) L 07/03/17 06:00 Anion Gap 35 mmol/L 07/03/17 06:00 BUN 5 mg/dL (7-17) L 07/03/17 06:00 Creatinine 0.6 mg/dL (0.7-1.2) L 07/03/17 06:00 Estimated GFR > 60 ml/min 07/03/17 06:00 BUN/Creatinine Ratio 8 % 07/03/17 06:00 Glucose 101 mg/dL (65-100) H 07/03/17 06:00 POC Glucose 117 (70-105) H 07/02/17 08:41 Ketones Quantitative Negative (Negative) 07/01/17 10:32 Osmolality 301 Mosm/kg 07/01/17 10:32 Lactic Acid 0.60 mmol/L (0.7-2.0) L 07/02/17 10:00 Calcium 9.4 mg/dL (8.4-10.2) D 07/03/17 06:00 Phosphorus 1.80 mg/dL (2.5-4.5) L 07/02/17 17:59 Magnesium 1.90 mg/dL (1.7-2.3) 07/03/17 06:00 Total Bilirubin 0.30 mg/dL (0.1-1.2) 07/02/17 17:59 Direct Bilirubin < 0.2 mg/dL (0-0.2) 07/02/17 17:59 Indirect Bilirubin 0.1 mg/dL 07/02/17 17:59 AST 51 units/L (5-40) H 07/02/17 17:59 ALT 51 units/L (7-56) 07/02/17 17:59 Alkaline Phosphatase 87 units/L (35-129) 07/02/17 17:59 Ammonia 43.0 umol/L (25-60) 07/02/17 17:59 Total Creatine Kinase 851 units/L (30-135) H 07/01/17 10:32 CK-MB (CK-2) 8.4 ng/mL (0.0-4.0) H 07/01/17 10:32 CK-MB (CK-2) Rel Index 0.9 (0-4) 07/01/17 10:32 Total Protein 5.4 g/dL (6.3-8.2) L 07/02/17 17:59 Albumin 3.6 g/dL (3.9-5) L 07/02/17 17:59 Albumin/Globulin Ratio 2.0 % 07/02/17 17:59 Lipase 15 units/L (13-60) 07/02/17 17:59 Urine Color Red (Yellow) 07/01/17 09:49 Urine Turbidity Clear (Clear) 07/01/17 09:49 Urine pH 5.0 (5.0-7.0) 07/01/17 09:49 Ur Specific [place] 1.013 (1.003-1.030) 07/01/17 09:49 Urine Protein 30 mg/dl mg/dL (Negative) 07/01/17 09:49 Urine Glucose (UA) 150 mg/dL (Negative) 07/01/17 09:49 Urine Ketones Neg mg/dL (Negative) 07/01/17 09:49 Urine Blood Lg (Negative) 07/01/17 09:49 Urine Nitrite Neg (Negative) 07/01/17 09:49 Urine Bilirubin Neg (Negative) 07/01/17 09:49 Urine Urobilinogen < 2.0 mg/dL (<2.0) 07/01/17 09:49 Ur Leukocyte Esterase Neg (Negative) 07/01/17 09:49 Urine WBC (Auto) 1.0 /HPF (0.0-6.0) 07/01/17 09:49 Urine RBC (Auto) 1.0 /HPF (0.0-6.0) 07/01/17 09:49 U Epithel Cells (Auto) 1.0 /HPF (0-13.0) 07/01/17 09:49 Urine Mucus Few /HPF 07/01/17 09:49 Urine HCG, Qual Negative (Negative) 07/01/17 09:49 Salicylates < 0.3 mg/dL (2.8-20.0) L 07/01/17 08:30 Urine Opiates Screen Presumptive negative 07/01/17 09:49 Urine Methadone Screen Presumptive negative 07/01/17 09:49 Acetaminophen < 15.0 ug/mL (10.0-30.0) 07/01/17 08:30 Ur Barbiturates Screen Presumptive negative 07/01/17 09:49 Ur Phencyclidine Scrn Presumptive negative 07/01/17 09:49 Ur Amphetamines Screen Presumptive negative 07/01/17 09:49 U Benzodiazepines Scrn Presumptive positive 07/01/17 09:49 Urine Cocaine Screen Presumptive negative 07/01/17 09:49 U Marijuana (THC) Screen Presumptive positive 07/01/17 09:49 Drugs of Abuse Note Disclamer 07/01/17 09:49 Plasma/Serum Alcohol < 0.01 gm% (0-0.07) 07/01/17 08:30 Blood Type O POSITIVE 07/01/17 08:35 Antibody Screen Negative 07/01/17 08:35
[2017-07-03] MEDS: ATIVAN IV PRN (21:04)
[2017-07-03] MEDS: KEPPRA 500 MG in NACL 0.9% 100 ML IV SCH (22:05)
[2017-07-03] MEDS: LOVENOX SUB-Q SCH (22:11)
[2017-07-03] MEDS ORDERED: ATIVAN IV ONE (23:46)
[2017-07-04] MEDS: CLEOCIN 600 MG/50 mL 600 MG/50 ML BAG IV SCH ×3 (01:23→19:01)
[2017-07-04] MEDS: D5NS 1,000 ML IV SCH (06:01)
--- NOTE | 2017-07-04 09:20 | XRay Report ---
AP CHEST :07/04/17 CLINICAL: Difficulty breathing. COMPARISON:07/02/17 FINDINGS: Normal heart and pulmonary vasculature. The lungs are normally expanded and clear. Bilateral small calcified hilar granulomata and a calcified granuloma in the right lower lobe.Severe arthritis of the shoulders. IMPRESSION: No acute cardiopulmonary process. Old granulomatous disease.
[2017-07-04 09:33] LABS: Basophils % (Auto) 0.7 % (0.0-1.8); Eosinophils % (Auto) 0.1 % (0.0-4.3); Hemoglobin 12.8 gm/dl (10.1-14.3); Mean Corpuscular HGB Conc 34 % (30-34); Mean Corpuscular Hemoglobin 34 pg (28-32); Mean Corpuscular Volume 101 fl (79-97); Platelet Count 243 K/mm3 (140-440); Red Blood Count 3.75 M/mm3 (3.65-5.03); Red Cell Distribution Width 13.6 % (13.2-15.2)
[2017-07-04] MEDS: KEPPRA 500 MG in NACL 0.9% 100 ML IV SCH ×2 (09:45→21:49)
[2017-07-04 09:52] LABS: Anion Gap 22 mmol/L; BUN/Creatinine Ratio 10; Blood Urea Nitrogen 5 mg/dL (7-17); Calcium 8.8 mg/dL (8.4-10.2); Carbon Dioxide 16 mmol/L (22-30); Glucose 98 mg/dL (65-100); Potassium 3.8 mmol/L (3.6-5.0); Sodium 144 mmol/L (137-145)
--- NOTE | 2017-07-04 13:18 | Progress Note ---
Assessment and Plan Assessment and plan: Drug overdose, patient took flakka(Zombie drug) - UDS is positive for benzo and marijuana - Supportive care, close follow-up for withdrawal - Mental health consult appreciated Acute toxic encephalopathy - Due to drug overdose - Frequent neuro checks - Patient is awake and communicative Acute hypoxic respiratory failure - Patient was intubated and later extubated after evaluated by pulmonary - Breathing treatments, nebs - Patient is able to take care of her airways Sepsis secondary to Aspiration pneumonitis - Patient is on IV clindamycin - We will monitor DVT prophylaxis - On Lovenox Disposition - Continue inpatient care History Interval history: Patient was seen and evaluated this morning, patient was 4 point restraints, patient was calm and cooperative and she said she is thirsty, we will going to monitor her off the restraints. Hospitalist Physical - Physical exam Narrative exam: Not in cardiopulmonary distress. The patient appeared well nourished and normally developed. Vital signs as documented. Head exam is unremarkable. No scleral icterus . Neck is without jugular venous distension, thyromegaly, or carotid bruits. Lungs are clear to auscultation. Cardiac exam reveals regular rate and Rhythm. First and second heart sounds normal. No murmurs, rubs or gallops. Abdominal exam reveals normal bowel sounds, no masses, no organomegaly and no aortic enlargement. Extremities are nonedematous and both femoral and pedal pulses are normal. 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 - Constitutional Vitals: Temp Pulse Resp BP Pulse Ox 98.3 F 103 H 20 110/78 97 07/04/17 07:55 07/04/17 07:55 07/04/17 07:55 07/04/17 07:55 07/04/17 08:24 General appearance: Present: severe distress Results - Labs CBC & Chem 7: 07/04/17 09:09 07/04/17 09:09 Labs: Laboratory Last Values WBC 13.0 K/mm3 (4.5-11.0) H 07/04/17 09:09 RBC 3.75 M/mm3 (3.65-5.03) 07/04/17 09:09 Hgb 12.8 gm/dl (10.1-14.3) 07/04/17 09:09 Hct 38.0 % (30.3-42.9) 07/04/17 09:09 MCV 101 fl (79-97) H 07/04/17 09:09 MCH 34 pg (28-32) H 07/04/17 09:09 MCHC 34 % (30-34) 07/04/17 09:09 RDW 13.6 % (13.2-15.2) 07/04/17 09:09 Plt Count 243 K/mm3 (140-440) 07/04/17 09:09 Lymph % (Auto) 9.0 % (13.4-35.0) L 07/04/17 09:09 [place] % (Auto) 6.0 % (0.0-7.3) 07/04/17 09:09 Eos % (Auto) 0.1 % (0.0-4.3) 07/04/17 09:09 Baso % (Auto) 0.7 % (0.0-1.8) 07/04/17 09:09 Lymph # 1.2 K/mm3 (1.2-5.4) 07/04/17 09:09 [place] # 0.8 K/mm3 (0.0-0.8) 07/04/17 09:09 Eos # 0.0 K/mm3 (0.0-0.4) 07/04/17 09:09 Baso # 0.1 K/mm3 (0.0-0.1) 07/04/17 09:09 Add Manual Diff Complete 07/03/17 06:00 Total Counted 100 07/03/17 06:00 Seg Neutrophils % 84.2 % (40.0-70.0) H 07/04/17 09:09 Seg Neuts % (Manual) 46.0 % (40.0-70.0) 07/03/17 06:00 Band Neutrophils % 24.0 % 07/03/17 06:00 Lymphocytes % (Manual) 22.0 % (13.4-35.0) 07/03/17 06:00 Reactive Lymphs % (Man) 0 % 07/03/17 06:00 Monocytes % (Manual) 8.0 % (0.0-7.3) H 07/03/17 06:00 Eosinophils % (Manual) 0 % (0.0-4.3) 07/03/17 06:00 Basophils % (Manual) 0 % (0.0-1.8) 07/03/17 06:00 Metamyelocytes % 0 % 07/03/17 06:00 Myelocytes % 0 % 07/03/17 06:00 Promyelocytes % 0 % 07/03/17 06:00 Blast Cells % 0 % 07/03/17 06:00 Nucleated RBC % Not Reportable 07/03/17 06:00 Seg Neutrophils # 10.9 K/mm3 (1.8-7.7) H 07/04/17 09:09 Seg Neutrophils # Man 9.7 K/mm3 (1.8-7.7) H 07/03/17 06:00 Band Neutrophils # 5.1 K/mm3 07/03/17 06:00 Lymphocytes # (Manual) 4.6 K/mm3 (1.2-5.4) 07/03/17 06:00 Abs React Lymphs (Man) 0.0 K/mm3 07/03/17 06:00 Monocytes # (Manual) 1.7 K/mm3 (0.0-0.8) H 07/03/17 06:00 Eosinophils # (Manual) 0.0 K/mm3 (0.0-0.4) 07/03/17 06:00 Basophils # (Manual) 0.0 K/mm3 (0.0-0.1) 07/03/17 06:00 Metamyelocytes # 0.0 K/mm3 07/03/17 06:00 Myelocytes # 0.0 K/mm3 07/03/17 06:00 Promyelocytes # 0.0 K/mm3 07/03/17 06:00 Blast Cells # 0.0 K/mm3 07/03/17 06:00 WBC Morphology Not Reportable 07/03/17 06:00 Hypersegmented Neuts Not Reportable 07/03/17 06:00 Hyposegmented Neuts Not Reportable 07/03/17 06:00 Hypogranular Neuts Not Reportable 07/03/17 06:00 Smudge Cells Not Reportable 07/03/17 06:00 Toxic Granulation Not Reportable 07/03/17 06:00 Toxic Vacuolation Not Reportable 07/03/17 06:00 Dohle Bodies Not Reportable 07/03/17 06:00 Pelger-Huet Anomaly Not Reportable 07/03/17 06:00 [place] Rods Not Reportable 07/03/17 06:00 Platelet Estimate Appears normal 07/03/17 06:00 Clumped Platelets Not Reportable 07/03/17 06:00 Plt Clumps, EDTA Not Reportable 07/03/17 06:00 Large Platelets Not Reportable 07/03/17 06:00 Giant Platelets Not Reportable 07/03/17 06:00 Platelet Satelliting Not Reportable 07/03/17 06:00 Plt Morphology Comment Not Reportable 07/03/17 06:00 RBC Morphology Not Reportable 07/03/17 06:00 Dimorphic RBCs Not Reportable 07/03/17 06:00 Polychromasia Not Reportable 07/03/17 06:00 Hypochromasia 1+ 07/03/17 06:00 Poikilocytosis Not Reportable 07/03/17 06:00 Anisocytosis 1+ 07/03/17 06:00 Microcytosis Not Reportable 07/03/17 06:00 Macrocytosis Not Reportable 07/03/17 06:00 Spherocytes Not Reportable 07/03/17 06:00 Pappenheimer Bodies Not Reportable 07/03/17 06:00 Sickle Cells Not Reportable 07/03/17 06:00 Target Cells Not Reportable 07/03/17 06:00 Tear Drop Cells Not Reportable 07/03/17 06:00 Ovalocytes Not Reportable 07/03/17 06:00 Helmet Cells Not Reportable 07/03/17 06:00 Gaitan-[place] Bodies Not Reportable 07/03/17 06:00 [place] Rings Not Reportable 07/03/17 06:00 Kevin Cells Not Reportable 07/03/17 06:00 Bite Cells Not Reportable 07/03/17 06:00 Crenated Cell Not Reportable 07/03/17 06:00 Elliptocytes Not Reportable 07/03/17 06:00 Acanthocytes (Spur) Not Reportable 07/03/17 06:00 Rouleaux Not Reportable 07/03/17 06:00 Hemoglobin C Crystals Not Reportable 07/03/17 06:00 Schistocytes Not Reportable 07/03/17 06:00 Malaria parasites Not Reportable 07/03/17 06:00 [place] Bodies Not Reportable 07/03/17 06:00 Hem Pathologist Commnt No 07/03/17 06:00 POC ABG pH 7.281 (7.35-7.45) L 07/01/17 09:55 POC ABG pCO2 37.8 (35-45) 07/01/17 09:55 POC ABG pO2 180 (80-105) H 07/01/17 09:55 POC ABG HCO3 17.8 07/01/17 09:55 POC ABG Total CO2 19 07/01/17 09:55 POC ABG O2 Sat 99 07/01/17 09:55 POC ABG Base Excess -9 07/01/17 09:55 FiO2 50 % 07/01/17 09:55 Sodium 144 mmol/L (137-145) 07/04/17 09:09 Potassium 3.8 mmol/L (3.6-5.0) 07/04/17 09:09 Chloride 110.0 mmol/L (98-107) H 07/04/17 09:09 Carbon Dioxide 16 mmol/L (22-30) L 07/04/17 09:09 Anion Gap 22 mmol/L 07/04/17 09:09 BUN 5 mg/dL (7-17) L 07/04/17 09:09 Creatinine 0.5 mg/dL (0.7-1.2) L 07/04/17 09:09 Estimated GFR > 60 ml/min 07/04/17 09:09 BUN/Creatinine Ratio 10 % 07/04/17 09:09 Glucose 98 mg/dL (65-100) 07/04/17 09:09 POC Glucose 87 (70-105) 07/04/17 12:00 Ketones Quantitative Negative (Negative) 07/01/17 10:32 Osmolality 301 Mosm/kg 07/01/17 10:32 Lactic Acid 0.60 mmol/L (0.7-2.0) L 07/02/17 10:00 Calcium 8.8 mg/dL (8.4-10.2) 07/04/17 09:09 Phosphorus 1.80 mg/dL (2.5-4.5) L 07/02/17 17:59 Magnesium 1.90 mg/dL (1.7-2.3) 07/03/17 06:00 Total Bilirubin 0.30 mg/dL (0.1-1.2) 07/02/17 17:59 Direct Bilirubin < 0.2 mg/dL (0-0.2) 07/02/17 17:59 Indirect Bilirubin 0.1 mg/dL 07/02/17 17:59 AST 51 units/L (5-40) H 07/02/17 17:59 ALT 51 units/L (7-56) 07/02/17 17:59 Alkaline Phosphatase 87 units/L (35-129) 07/02/17 17:59 Ammonia 43.0 umol/L (25-60) 07/02/17 17:59 Total Creatine Kinase 851 units/L (30-135) H 07/01/17 10:32 CK-MB (CK-2) 8.4 ng/mL (0.0-4.0) H 07/01/17 10:32 CK-MB (CK-2) Rel Index 0.9 (0-4) 07/01/17 10:32 Total Protein 5.4 g/dL (6.3-8.2) L 07/02/17 17:59 Albumin 3.6 g/dL (3.9-5) L 07/02/17 17:59 Albumin/Globulin Ratio 2.0 % 07/02/17 17:59 Lipase 15 units/L (13-60) 07/02/17 17:59 Urine Color Red (Yellow) 07/01/17 09:49 Urine Turbidity Clear (Clear) 07/01/17 09:49 Urine pH 5.0 (5.0-7.0) 07/01/17 09:49 Ur Specific Brogan 1.013 (1.003-1.030) 07/01/17 09:49 Urine Protein 30 mg/dl mg/dL (Negative) 07/01/17 09:49 Urine Glucose (UA) 150 mg/dL (Negative) 07/01/17 09:49 Urine Ketones Neg mg/dL (Negative) 07/01/17 09:49 Urine Blood Lg (Negative) 07/01/17 09:49 Urine Nitrite Neg (Negative) 07/01/17 09:49 Urine Bilirubin Neg (Negative) 07/01/17 09:49 Urine Urobilinogen < 2.0 mg/dL (<2.0) 07/01/17 09:49 Ur Leukocyte Esterase Neg (Negative) 07/01/17 09:49 Urine WBC (Auto) 1.0 /HPF (0.0-6.0) 07/01/17 09:49 Urine RBC (Auto) 1.0 /HPF (0.0-6.0) 07/01/17 09:49 U Epithel Cells (Auto) 1.0 /HPF (0-13.0) 07/01/17 09:49 Urine Mucus Few /HPF 07/01/17 09:49 Urine HCG, Qual Negative (Negative) 07/01/17 09:49 Salicylates < 0.3 mg/dL (2.8-20.0) L 07/01/17 08:30 Urine Opiates Screen Presumptive negative 07/01/17 09:49 Urine Methadone Screen Presumptive negative 07/01/17 09:49 Acetaminophen < 15.0 ug/mL (10.0-30.0) 07/01/17 08:30 Ur Barbiturates Screen Presumptive negative 07/01/17 09:49 Ur Phencyclidine Scrn Presumptive negative 07/01/17 09:49 Ur Amphetamines Screen Presumptive negative 07/01/17 09:49 U Benzodiazepines Scrn Presumptive positive 07/01/17 09:49 Urine Cocaine Screen Presumptive negative 07/01/17 09:49 U Marijuana (THC) Screen Presumptive positive 07/01/17 09:49 Drugs of Abuse Note Disclamer 07/01/17 09:49 Plasma/Serum Alcohol < 0.01 gm% (0-0.07) 07/01/17 08:30 Blood Type O POSITIVE 07/01/17 08:35 Antibody Screen Negative 07/01/17 08:35
--- NOTE | 2017-07-04 13:30 | Progress Note ---
Subjective - Reason for Consult Consult date: 07/04/17 Reason for consult: Psychiatry Follow-up - Chief Complaint Chief complaint: "Hi" 37 YO Female with Unknown PMH presents to ED for evaluation. Psychiatry consulted because of possible overdose. Today patient is calm during the assessment. She did state her name and that she was in the hospital. She wasn't able to ID the past/current [place] Presidents nor state her . Also, she could not recall 3 numbers (3,6,9) within 5 mins. No gestures of SI/HI's. Mental Status Exam - Vital signs Last Vital Signs Temp 98.3 F 07/04/17 07:55 Pulse 103 H 07/04/17 07:55 Resp 20 07/04/17 07:55 BP 110/78 07/04/17 07:55 Pulse Ox 97 07/04/17 08:24 - Exam Narrative exam: MSE: Appearance: calm Behavior: regular eye contact Speech: regular rate and tone Mood: unable to assess Affect: flat Thought Process: unable to assess Thought Content: no gestures of SI/HI's and AVH's Motor Activity: sitting up in bed Cognition: A/O x1 Insight: unable to assess Judgment: unable to assess Assessment and Plan Impression: Today patient is calm during the assessment. Patient isn't in restraints. Positive for marijuana/benzos. Medical: Acute Toxic Encephalopathy Recommendation/Plan: Continue Haldol 2 mg IM Q6hrs PRN for acute agitation. Use the Ativan per [facility] protocol only. Delirium precautions below: 1. Frequently reorient patient and involve him/her in their care (simple explanations of procedures, tests, medications). 2. Lights on and shades open during daytime hours. 3. Try to avoid unnecessary interruptions to sleep during nighttime hours. 4. Obtain glasses, hearing aids from home if patient uses these at baseline. 5. Avoid medications that may exacerbate delirium (especially narcotics, barbiturates, ambien, lunesta, benzos, and medications with excessive anticholinergic properties).
[2017-07-04] MEDS: HALDOL IM PRN (18:24)
[2017-07-04] MEDS: LOVENOX SUB-Q SCH (21:49)
[2017-07-05] MEDS: CLEOCIN 600 MG/50 mL 600 MG/50 ML BAG IV SCH ×3 (01:52→17:52)
[2017-07-05 06:27] LABS: Eosinophils % (Auto) 0.5 % (0.0-4.3); Hematocrit 39.6 % (30.3-42.9); Mean Corpuscular HGB Conc 33 % (30-34); Mean Corpuscular Hemoglobin 33 pg (28-32); Mean Corpuscular Volume 100 fl (79-97); Platelet Count 273 K/mm3 (140-440); Red Blood Count 3.97 M/mm3 (3.65-5.03); Red Cell Distribution Width 13.7 % (13.2-15.2); White Blood Count 12.2 K/mm3 (4.5-11.0)
[2017-07-05 06:46] LABS: Alanine Aminotransferase 42 units/L (7-56); Albumin 3.8 g/dL (3.9-5); Albumin/Globulin Ratio 1.5 %; Alkaline Phosphatase 82 units/L (35-129); Anion Gap 22 mmol/L; BUN/Creatinine Ratio 15; Blood Urea Nitrogen 6 mg/dL (7-17); Calcium 8.8 mg/dL (8.4-10.2); Carbon Dioxide 20 mmol/L (22-30); Chloride 104.6 mmol/L (98-107); Glucose 112 mg/dL (65-100); Potassium 3.3 mmol/L (3.6-5.0); Sodium 143 mmol/L (137-145); Total Protein 6.4 g/dL (6.3-8.2)
[2017-07-05] MEDS: HALDOL IM PRN ×3 (07:24→22:09)
[2017-07-05] MEDS: D5NS 1,000 ML IV SCH ×3 (07:25→21:28)
--- NOTE | 2017-07-05 09:52 | XRay Report ---
AP CHEST :07/05/17 CLINICAL: Difficulty breathing. COMPARISON:07/04/17 FINDINGS: Normal heart and pulmonary vasculature. The lungs are normally expanded and clear. 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 IMPRESSION: No acute cardiopulmonary process.
[2017-07-05] MEDS: KEPPRA 500 MG in NACL 0.9% 100 ML IV SCH (10:27)
[2017-07-05] MEDS: ATIVAN IV PRN ×2 (10:37→18:43)
--- NOTE | 2017-07-05 11:30 | Progress Note ---
Subjective - Reason for Consult Consult date: 07/05/17 Reason for consult: Psychiatry Follow-up - Chief Complaint Chief complaint: "Patient mumbles" 37 YO Female with Unknown PMH presents to ED for evaluation. Psychiatry consulted because of possible overdose. Today patient is calm, but mumbles during the assessment. Per her RN, she was given prn Haldol prior to my assessment. Patient would open her eyes when her name is called. No gestures of SI/HI's. Mental Status Exam - Vital signs Last Vital Signs Temp 98.6 F 07/05/17 05:31 Pulse 98 H 07/05/17 05:31 Resp 20 07/05/17 05:31 BP 123/69 07/05/17 05:31 Pulse Ox 100 07/05/17 10:00 - Exam Narrative exam: MSE: Appearance: calm Behavior: eyes closed Speech: mumbles Mood: unable to assess Affect: flat Thought Process: unable to assess Thought Content: no gestures of SI/HI's and AVH's Motor Activity: lying in the bed Cognition: A/O x1 Insight: unable to assess Judgment: unable to assess Assessment and Plan Impression: Today patient is calm during the assessment. Patient in restraints. Positive for marijuana/benzos. Medical: Acute Toxic Encephalopathy Recommendation/Plan: Continue Haldol 2 mg IM Q6hrs PRN for acute agitation. Use the Ativan per [facility] protocol only. Delirium precautions below: 1. Frequently reorient patient and involve him/her in their care (simple explanations of procedures, tests, medications). 2. Lights on and shades open during daytime hours. 3. Try to avoid unnecessary interruptions to sleep during nighttime hours. 4. Obtain glasses, hearing aids from home if patient uses these at baseline. 5. Avoid medications that may exacerbate delirium (especially narcotics, barbiturates, ambien, lunesta, benzos, and medications with excessive anticholinergic properties).
[2017-07-05] MEDS ORDERED: POTASSIUM CHLORIDE FEEDTUBE ONE (13:35)
--- NOTE | 2017-07-05 13:40 | Progress Note ---
Assessment and Plan Assessment and plan: 37-year-old female wrote to the ED being unconscious after taking Flakka Drug overdose, patient took flakka(Zombie drug) - UDS is positive for benzo and marijuana - Supportive care, close follow-up for withdrawal - Mental health consult appreciated Acute toxic encephalopathy - Due to drug overdose - Frequent neuro checks - Patient was sleepy Acute hypoxic respiratory failure - Patient was intubated and later extubated after evaluated by pulmonary - Breathing treatments, nebs - Patient is able to take care of her airways Sepsis secondary to Aspiration pneumonitis - Patient is on IV clindamycin - We will monitor DVT prophylaxis - On Lovenox Disposition - Continue inpatient care History Interval history: Patient was seen and evaluated this morning, patient is on restraints, patient was sleepy. Hospitalist Physical - Physical exam Narrative exam: Not in cardiopulmonary distress. The patient appeared well nourished and normally developed. Vital signs as documented. Head exam is unremarkable. No scleral icterus . Neck is without jugular venous distension, thyromegaly, or carotid bruits. Lungs are clear to auscultation. Cardiac exam reveals regular rate and Rhythm. First and second heart sounds normal. No murmurs, rubs or gallops. Abdominal exam reveals normal bowel sounds, no masses, no organomegaly and no aortic enlargement. Extremities are nonedematous and both femoral and pedal pulses are normal. [employer]: is awake and communicative. - Constitutional Vitals: Temp Pulse Resp BP Pulse Ox 98.6 F 98 H 20 123/69 100 07/05/17 05:31 07/05/17 05:31 07/05/17 05:31 07/05/17 05:31 07/05/17 10:00 General appearance: Present: severe distress Results - Labs CBC & Chem 7: 07/05/17 05:41 07/05/17 05:41 Labs: Laboratory Last Values WBC 12.2 K/mm3 (4.5-11.0) H 07/05/17 05:41 RBC 3.97 M/mm3 (3.65-5.03) 07/05/17 05:41 Hgb 13.0 gm/dl (10.1-14.3) 07/05/17 05:41 Hct 39.6 % (30.3-42.9) 07/05/17 05:41 MCV 100 fl (79-97) H 07/05/17 05:41 MCH 33 pg (28-32) H 07/05/17 05:41 MCHC 33 % (30-34) 07/05/17 05:41 RDW 13.7 % (13.2-15.2) 07/05/17 05:41 Plt Count 273 K/mm3 (140-440) 07/05/17 05:41 Lymph % (Auto) 12.3 % (13.4-35.0) L 07/05/17 05:41 [place] % (Auto) 6.5 % (0.0-7.3) 07/05/17 05:41 Eos % (Auto) 0.5 % (0.0-4.3) 07/05/17 05:41 Baso % (Auto) 1.0 % (0.0-1.8) 07/05/17 05:41 Lymph # 1.5 K/mm3 (1.2-5.4) 07/05/17 05:41 [place] # 0.8 K/mm3 (0.0-0.8) 07/05/17 05:41 Eos # 0.1 K/mm3 (0.0-0.4) 07/05/17 05:41 Baso # 0.1 K/mm3 (0.0-0.1) 07/05/17 05:41 Add Manual Diff Complete 07/03/17 06:00 Total Counted 100 07/03/17 06:00 Seg Neutrophils % 79.7 % (40.0-70.0) H 07/05/17 05:41 Seg Neuts % (Manual) 46.0 % (40.0-70.0) 07/03/17 06:00 Band Neutrophils % 24.0 % 07/03/17 06:00 Lymphocytes % (Manual) 22.0 % (13.4-35.0) 07/03/17 06:00 Reactive Lymphs % (Man) 0 % 07/03/17 06:00 Monocytes % (Manual) 8.0 % (0.0-7.3) H 07/03/17 06:00 Eosinophils % (Manual) 0 % (0.0-4.3) 07/03/17 06:00 Basophils % (Manual) 0 % (0.0-1.8) 07/03/17 06:00 Metamyelocytes % 0 % 07/03/17 06:00 Myelocytes % 0 % 07/03/17 06:00 Promyelocytes % 0 % 07/03/17 06:00 Blast Cells % 0 % 07/03/17 06:00 Nucleated RBC % Not Reportable 07/03/17 06:00 Seg Neutrophils # 9.7 K/mm3 (1.8-7.7) H 07/05/17 05:41 Seg Neutrophils # Man 9.7 K/mm3 (1.8-7.7) H 07/03/17 06:00 Band Neutrophils # 5.1 K/mm3 07/03/17 06:00 Lymphocytes # (Manual) 4.6 K/mm3 (1.2-5.4) 07/03/17 06:00 Abs React Lymphs (Man) 0.0 K/mm3 07/03/17 06:00 Monocytes # (Manual) 1.7 K/mm3 (0.0-0.8) H 07/03/17 06:00 Eosinophils # (Manual) 0.0 K/mm3 (0.0-0.4) 07/03/17 06:00 Basophils # (Manual) 0.0 K/mm3 (0.0-0.1) 07/03/17 06:00 Metamyelocytes # 0.0 K/mm3 07/03/17 06:00 Myelocytes # 0.0 K/mm3 07/03/17 06:00 Promyelocytes # 0.0 K/mm3 07/03/17 06:00 Blast Cells # 0.0 K/mm3 07/03/17 06:00 WBC Morphology Not Reportable 07/03/17 06:00 Hypersegmented Neuts Not Reportable 07/03/17 06:00 Hyposegmented Neuts Not Reportable 07/03/17 06:00 Hypogranular Neuts Not Reportable 07/03/17 06:00 Smudge Cells Not Reportable 07/03/17 06:00 Toxic Granulation Not Reportable 07/03/17 06:00 Toxic Vacuolation Not Reportable 07/03/17 06:00 Dohle Bodies Not Reportable 07/03/17 06:00 Pelger-Huet Anomaly Not Reportable 07/03/17 06:00 [place] Rods Not Reportable 07/03/17 06:00 Platelet Estimate Appears normal 07/03/17 06:00 Clumped Platelets Not Reportable 07/03/17 06:00 Plt Clumps, EDTA Not Reportable 07/03/17 06:00 Large Platelets Not Reportable 07/03/17 06:00 Giant Platelets Not Reportable 07/03/17 06:00 Platelet Satelliting Not Reportable 07/03/17 06:00 Plt Morphology Comment Not Reportable 07/03/17 06:00 RBC Morphology Not Reportable 07/03/17 06:00 Dimorphic RBCs Not Reportable 07/03/17 06:00 Polychromasia Not Reportable 07/03/17 06:00 Hypochromasia 1+ 07/03/17 06:00 Poikilocytosis Not Reportable 07/03/17 06:00 Anisocytosis 1+ 07/03/17 06:00 Microcytosis Not Reportable 07/03/17 06:00 Macrocytosis Not Reportable 07/03/17 06:00 Spherocytes Not Reportable 07/03/17 06:00 Pappenheimer Bodies Not Reportable 07/03/17 06:00 Sickle Cells Not Reportable 07/03/17 06:00 Target Cells Not Reportable 07/03/17 06:00 Tear Drop Cells Not Reportable 07/03/17 06:00 Ovalocytes Not Reportable 07/03/17 06:00 Helmet Cells Not Reportable 07/03/17 06:00 [place] Bodies Not Reportable 07/03/17 06:00 [place] Rings Not Reportable 07/03/17 06:00 Kevin Cells Not Reportable 07/03/17 06:00 Bite Cells Not Reportable 07/03/17 06:00 Crenated Cell Not Reportable 07/03/17 06:00 Elliptocytes Not Reportable 07/03/17 06:00 Acanthocytes (Spur) Not Reportable 07/03/17 06:00 Rouleaux Not Reportable 07/03/17 06:00 Hemoglobin C Crystals Not Reportable 07/03/17 06:00 Schistocytes Not Reportable 07/03/17 06:00 Malaria parasites Not Reportable 07/03/17 06:00 [place] Bodies Not Reportable 07/03/17 06:00 Hem Pathologist Commnt No 07/03/17 06:00 POC ABG pH 7.281 (7.35-7.45) L 07/01/17 09:55 POC ABG pCO2 37.8 (35-45) 07/01/17 09:55 POC ABG pO2 180 (80-105) H 07/01/17 09:55 POC ABG HCO3 17.8 07/01/17 09:55 POC ABG Total CO2 19 07/01/17 09:55 POC ABG O2 Sat 99 07/01/17 09:55 POC ABG Base Excess -9 07/01/17 09:55 FiO2 50 % 07/01/17 09:55 Sodium 143 mmol/L (137-145) 07/05/17 05:41 Potassium 3.3 mmol/L (3.6-5.0) L 07/05/17 05:41 Chloride 104.6 mmol/L (98-107) 07/05/17 05:41 Carbon Dioxide 20 mmol/L (22-30) L 07/05/17 05:41 Anion Gap 22 mmol/L 07/05/17 05:41 BUN 6 mg/dL (7-17) L 07/05/17 05:41 Creatinine 0.4 mg/dL (0.7-1.2) L 07/05/17 05:41 Estimated GFR > 60 ml/min 07/05/17 05:41 BUN/Creatinine Ratio 15 % 07/05/17 05:41 Glucose 112 mg/dL (65-100) H 07/05/17 05:41 POC Glucose 87 (70-105) 07/04/17 12:00 Ketones Quantitative Negative (Negative) 07/01/17 10:32 Osmolality 301 Mosm/kg 07/01/17 10:32 Lactic Acid 0.60 mmol/L (0.7-2.0) L 07/02/17 10:00 Calcium 8.8 mg/dL (8.4-10.2) 07/05/17 05:41 Phosphorus 1.80 mg/dL (2.5-4.5) L 07/02/17 17:59 Magnesium 1.90 mg/dL (1.7-2.3) 07/03/17 06:00 Total Bilirubin 0.30 mg/dL (0.1-1.2) 07/05/17 05:41 Direct Bilirubin < 0.2 mg/dL (0-0.2) 07/02/17 17:59 Indirect Bilirubin 0.1 mg/dL 07/02/17 17:59 AST 45 units/L (5-40) H 07/05/17 05:41 ALT 42 units/L (7-56) 07/05/17 05:41 Alkaline Phosphatase 82 units/L (35-129) 07/05/17 05:41 Ammonia 43.0 umol/L (25-60) 07/02/17 17:59 Total Creatine Kinase 1279 units/L (30-135) H 07/04/17 09:09 CK-MB (CK-2) 8.4 ng/mL (0.0-4.0) H 07/01/17 10:32 CK-MB (CK-2) Rel Index 0.9 (0-4) 07/01/17 10:32 Total Protein 6.4 g/dL (6.3-8.2) 07/05/17 05:41 Albumin 3.8 g/dL (3.9-5) L 07/05/17 05:41 Albumin/Globulin Ratio 1.5 % 07/05/17 05:41 Lipase 15 units/L (13-60) 07/02/17 17:59 Urine Color Red (Yellow) 07/01/17 09:49 Urine Turbidity Clear (Clear) 07/01/17 09:49 Urine pH 5.0 (5.0-7.0) 07/01/17 09:49 Ur Specific [place] 1.013 (1.003-1.030) 07/01/17 09:49 Urine Protein 30 mg/dl mg/dL (Negative) 07/01/17 09:49 Urine Glucose (UA) 150 mg/dL (Negative) 07/01/17 09:49 Urine Ketones Neg mg/dL (Negative) 07/01/17 09:49 Urine Blood Lg (Negative) 07/01/17 09:49 Urine Nitrite Neg (Negative) 07/01/17 09:49 Urine Bilirubin Neg (Negative) 07/01/17 09:49 Urine Urobilinogen < 2.0 mg/dL (<2.0) 07/01/17 09:49 Ur Leukocyte Esterase Neg (Negative) 07/01/17 09:49 Urine WBC (Auto) 1.0 /HPF (0.0-6.0) 07/01/17 09:49 Urine RBC (Auto) 1.0 /HPF (0.0-6.0) 07/01/17 09:49 U Epithel Cells (Auto) 1.0 /HPF (0-13.0) 07/01/17 09:49 Urine Mucus Few /HPF 07/01/17 09:49 Urine HCG, Qual Negative (Negative) 07/01/17 09:49 Salicylates < 0.3 mg/dL (2.8-20.0) L 07/01/17 08:30 Urine Opiates Screen Presumptive negative 07/01/17 09:49 Urine Methadone Screen Presumptive negative 07/01/17 09:49 Acetaminophen < 15.0 ug/mL (10.0-30.0) 07/01/17 08:30 Ur Barbiturates Screen Presumptive negative 07/01/17 09:49 Ur Phencyclidine Scrn Presumptive negative 07/01/17 09:49 Ur Amphetamines Screen Presumptive negative 07/01/17 09:49 U Benzodiazepines Scrn Presumptive positive 07/01/17 09:49 Urine Cocaine Screen Presumptive negative 07/01/17 09:49 U Marijuana (THC) Screen Presumptive positive 07/01/17 09:49 Drugs of Abuse Note Disclamer 07/01/17 09:49 Plasma/Serum Alcohol < 0.01 gm% (0-0.07) 07/01/17 08:30 Blood Type O POSITIVE 07/01/17 08:35 Antibody Screen Negative 07/01/17 08:35
[2017-07-05] MEDS: LOVENOX SUB-Q SCH (21:26)
[2017-07-05] MEDS: KEPPRA PO SCH (21:29)
[2017-07-06] MEDS: CLEOCIN 600 MG/50 mL 600 MG/50 ML BAG IV SCH ×3 (02:23→20:03)
[2017-07-06 05:47] LABS: Basophils % (Auto) 0.8 % (0.0-1.8); Eosinophils % (Auto) 0.6 % (0.0-4.3); Hematocrit 33.6 % (30.3-42.9); Hemoglobin 11.9 gm/dl (10.1-14.3); Mean Corpuscular HGB Conc 36 % (30-34); Mean Corpuscular Hemoglobin 35 pg (28-32); Mean Corpuscular Volume 98 fl (79-97); Platelet Count 255 K/mm3 (140-440); Red Blood Count 3.43 M/mm3 (3.65-5.03); Red Cell Distribution Width 13.1 % (13.2-15.2); White Blood Count 9.3 K/mm3 (4.5-11.0)
[2017-07-06 06:10] LABS: Anion Gap 17 mmol/L; BUN/Creatinine Ratio 8; Blood Urea Nitrogen 3 mg/dL (7-17); Calcium 8.4 mg/dL (8.4-10.2); Carbon Dioxide 24 mmol/L (22-30); Chloride 106.3 mmol/L (98-107); Glucose 129 mg/dL (65-100); Sodium 144 mmol/L (137-145)
[2017-07-06 06:26] LABS: Potassium 2.9 mmol/L (3.6-5.0)
[2017-07-06] MEDS ORDERED: POTASSIUM CHLORIDE FEEDTUBE NR (08:30)
--- NOTE | 2017-07-06 08:54 | XRay Report ---
PORTABLE CHEST INDICATION: Follow up respiratory failure. COMPARISON: Yesterday. FINDINGS: Portable, frontal chest radiograph, 8:41 AM, 07/06/2017 again demonstrates clear lungs. Normal cardiomediastinal silhouette. EKG leads. 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 Od healed left seventh rib fracture and slight upper thoracic levoscoliosis also again seen. CONCLUSION: No acute chest process with stable bony findings, including bilateral shoulder synovial osteochondromatosis. Thank you for the opportunity to participate in this patient's care.
[2017-07-06] MEDS: KEPPRA PO SCH (09:59)
[2017-07-06] MEDS: KCL 10MEQ/100ML 10 MEQ/100 ML BAG IV SCH ×4 (10:48→15:46)
--- NOTE | 2017-07-06 11:24 | Progress Note ---
Subjective - Reason for Consult Consult date: 07/06/17 Reason for consult: Psychiatry Follow-up - Chief Complaint Chief complaint: "Hello" 37 YO Female with Unknown PMH presents to ED for evaluation. Psychiatry consulted because of possible overdose. Today patient is calm during the assessment. Upon my arrival to her room, she was eating her breakfast. She would only answer to her name, but would smile when asked other questions. Per collateral from Justin Bay at [phone], he stated that the patient left the [place] campus via [employer] last week. He stated that her family has been trying to contact her since her departure. He stated that the patient has a hx of seizure, but could not say if she has a mental health hx or dx. I informed Mr Bay to have the patients's family contact the medical and psychiatry team [facility]. He was given direct numbers to both teams. No gestures of SI/HI's by the patient. Per Collateral information from her stepmother Austin Morales at [phone], the patient has epilepsy. She stated that she cannot take Keppra, because she will become lethargic, combative, and nonverbal. She stated to her knowledge, her daughter has never attempted suicide. She stated that her daughter's neurologist prescribed Klonipine for anxiety. She also stated that her daughter has a hx of substance abuse (marijuana). Mental Status Exam - Vital signs Last Vital Signs Temp 98.9 F 07/05/17 23:53 Pulse 101 H 07/05/17 23:53 Resp 20 07/05/17 23:53 BP 129/86 07/05/17 23:53 Pulse Ox 98 07/05/17 23:53 - Exam Narrative exam: MSE: Appearance: calm Behavior: regular eye contact Speech: regular rate and tone Mood: unable to assess Affect: flat Thought Process: unable to assess Thought Content: no gestures of SI/HI's and AVH's Motor Activity: lying in the bed Cognition: unable to assess Insight: unable to assess Judgment: unable to assess Assessment and Plan Impression: Today patient is calm during the assessment. Patient in not in restraints. Positive for marijuana/benzos. Medical: Acute Toxic Encephalopathy Recommendation/Plan: Continue Haldol 2 mg IM Q6hrs PRN for acute agitation. Delirium precautions below: 1. Frequently reorient patient and involve him/her in their care (simple explanations of procedures, tests, medications). 2. Lights on and shades open during daytime hours. 3. Try to avoid unnecessary interruptions to sleep during nighttime hours. 4. Obtain glasses, hearing aids from home if patient uses these at baseline. 5. Avoid medications that may exacerbate delirium (especially narcotics, barbiturates, ambien, lunesta, benzos, and medications with excessive anticholinergic properties).
--- NOTE | 2017-07-06 13:48 | Progress Note ---
Assessment and Plan Assessment and plan: 37-year-old female wrote to the ED being unconscious after taking Flakka Drug overdose, patient took flakka(Zombie drug) - UDS is positive for benzo and marijuana - Supportive care, close follow-up for withdrawal - Mental health consult appreciated Acute toxic encephalopathy - Due to drug overdose - Frequent neuro checks - Patient was sleepy Acute hypoxic respiratory failure - Patient was intubated and later extubated after evaluated by pulmonary - Breathing treatments, nebs - Patient is able to take care of her airways Sepsis secondary to Aspiration pneumonitis - Patient is on IV clindamycin - We will monitor Hypokalemia - repleted family member was contacted and said she was on seizure medications - Patient is on keppra DVT prophylaxis - On Lovenox Disposition - Continue inpatient care History Interval history: Patient was seen and evaluated this morning, patient is on restraints, patient was alert but didn't answer questions. she ate breakfast. Hospitalist Physical - Physical exam Narrative exam: Not in cardiopulmonary distress. The patient appeared well nourished and normally developed. Vital signs as documented. Head exam is unremarkable. No scleral icterus . Neck is without jugular venous distension, thyromegaly, or carotid bruits. Lungs are clear to auscultation. Cardiac exam reveals regular rate and Rhythm. First and second heart sounds normal. No murmurs, rubs or gallops. Abdominal exam reveals normal bowel sounds, no masses, no organomegaly and no aortic enlargement. Extremities are nonedematous and both femoral and pedal pulses are normal. 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 - Constitutional Vitals: Temp Pulse Resp BP Pulse Ox 98.9 F 101 H 20 129/86 98 07/05/17 23:53 07/05/17 23:53 07/05/17 23:53 07/05/17 23:53 07/05/17 23:53 General appearance: Present: severe distress Results - Labs CBC & Chem 7: 07/06/17 05:27 07/06/17 05:27 Labs: Laboratory Last Values WBC 9.3 K/mm3 (4.5-11.0) 07/06/17 05:27 RBC 3.43 M/mm3 (3.65-5.03) L 07/06/17 05:27 Hgb 11.9 gm/dl (10.1-14.3) 07/06/17 05:27 Hct 33.6 % (30.3-42.9) D 07/06/17 05:27 MCV 98 fl (79-97) H 07/06/17 05:27 MCH 35 pg (28-32) H 07/06/17 05:27 MCHC 36 % (30-34) H 07/06/17 05:27 RDW 13.1 % (13.2-15.2) L 07/06/17 05:27 Plt Count 255 K/mm3 (140-440) 07/06/17 05:27 Lymph % (Auto) 20.5 % (13.4-35.0) 07/06/17 05:27 Cass % (Auto) 8.6 % (0.0-7.3) H 07/06/17 05:27 Eos % (Auto) 0.6 % (0.0-4.3) 07/06/17 05:27 Baso % (Auto) 0.8 % (0.0-1.8) 07/06/17 05:27 Lymph # 1.9 K/mm3 (1.2-5.4) 07/06/17 05:27 Cass # 0.8 K/mm3 (0.0-0.8) 07/06/17 05:27 Eos # 0.1 K/mm3 (0.0-0.4) 07/06/17 05:27 Baso # 0.1 K/mm3 (0.0-0.1) 07/06/17 05:27 Add Manual Diff Complete 07/03/17 06:00 Total Counted 100 07/03/17 06:00 Seg Neutrophils % 69.5 % (40.0-70.0) 07/06/17 05:27 Seg Neuts % (Manual) 46.0 % (40.0-70.0) 07/03/17 06:00 Band Neutrophils % 24.0 % 07/03/17 06:00 Lymphocytes % (Manual) 22.0 % (13.4-35.0) 07/03/17 06:00 Reactive Lymphs % (Man) 0 % 07/03/17 06:00 Monocytes % (Manual) 8.0 % (0.0-7.3) H 07/03/17 06:00 Eosinophils % (Manual) 0 % (0.0-4.3) 07/03/17 06:00 Basophils % (Manual) 0 % (0.0-1.8) 07/03/17 06:00 Metamyelocytes % 0 % 07/03/17 06:00 Myelocytes % 0 % 07/03/17 06:00 Promyelocytes % 0 % 07/03/17 06:00 Blast Cells % 0 % 07/03/17 06:00 Nucleated RBC % Not Reportable 07/03/17 06:00 Seg Neutrophils # 6.4 K/mm3 (1.8-7.7) 07/06/17 05:27 Seg Neutrophils # Man 9.7 K/mm3 (1.8-7.7) H 07/03/17 06:00 Band Neutrophils # 5.1 K/mm3 07/03/17 06:00 Lymphocytes # (Manual) 4.6 K/mm3 (1.2-5.4) 07/03/17 06:00 Abs React Lymphs (Man) 0.0 K/mm3 07/03/17 06:00 Monocytes # (Manual) 1.7 K/mm3 (0.0-0.8) H 07/03/17 06:00 Eosinophils # (Manual) 0.0 K/mm3 (0.0-0.4) 07/03/17 06:00 Basophils # (Manual) 0.0 K/mm3 (0.0-0.1) 07/03/17 06:00 Metamyelocytes # 0.0 K/mm3 07/03/17 06:00 Myelocytes # 0.0 K/mm3 07/03/17 06:00 Promyelocytes # 0.0 K/mm3 07/03/17 06:00 Blast Cells # 0.0 K/mm3 07/03/17 06:00 WBC Morphology Not Reportable 07/03/17 06:00 Hypersegmented Neuts Not Reportable 07/03/17 06:00 Hyposegmented Neuts Not Reportable 07/03/17 06:00 Hypogranular Neuts Not Reportable 07/03/17 06:00 Smudge Cells Not Reportable 07/03/17 06:00 Toxic Granulation Not Reportable 07/03/17 06:00 Toxic Vacuolation Not Reportable 07/03/17 06:00 Dohle Bodies Not Reportable 07/03/17 06:00 Pelger-Huet Anomaly Not Reportable 07/03/17 06:00 [place] Rods Not Reportable 07/03/17 06:00 Platelet Estimate Appears normal 07/03/17 06:00 Clumped Platelets Not Reportable 07/03/17 06:00 Plt Clumps, EDTA Not Reportable 07/03/17 06:00 Large Platelets Not Reportable 07/03/17 06:00 Giant Platelets Not Reportable 07/03/17 06:00 Platelet Satelliting Not Reportable 07/03/17 06:00 Plt Morphology Comment Not Reportable 07/03/17 06:00 RBC Morphology Not Reportable 07/03/17 06:00 Dimorphic RBCs Not Reportable 07/03/17 06:00 Polychromasia Not Reportable 07/03/17 06:00 Hypochromasia 1+ 07/03/17 06:00 Poikilocytosis Not Reportable 07/03/17 06:00 Anisocytosis 1+ 07/03/17 06:00 Microcytosis Not Reportable 07/03/17 06:00 Macrocytosis Not Reportable 07/03/17 06:00 Spherocytes Not Reportable 07/03/17 06:00 Pappenheimer Bodies Not Reportable 07/03/17 06:00 Sickle Cells Not Reportable 07/03/17 06:00 Target Cells Not Reportable 07/03/17 06:00 Tear Drop Cells Not Reportable 07/03/17 06:00 Ovalocytes Not Reportable 07/03/17 06:00 Helmet Cells Not Reportable 07/03/17 06:[address] [place] Bodies Not Reportable 07/03/17 06:00 [place] Rings Not Reportable 07/03/17 06:00 Kevin Cells Not Reportable 07/03/17 06:00 Bite Cells Not Reportable 07/03/17 06:00 Crenated Cell Not Reportable 07/03/17 06:00 Elliptocytes Not Reportable 07/03/17 06:00 Acanthocytes (Spur) Not Reportable 07/03/17 06:00 Rouleaux Not Reportable 07/03/17 06:00 Hemoglobin C Crystals Not Reportable 07/03/17 06:00 Schistocytes Not Reportable 07/03/17 06:00 Malaria parasites Not Reportable 07/03/17 06:00 [place] Bodies Not Reportable 07/03/17 06:00 Hem Pathologist Commnt No 07/03/17 06:00 POC ABG pH 7.281 (7.35-7.45) L 07/01/17 09:55 POC ABG pCO2 37.8 (35-45) 07/01/17 09:55 POC ABG pO2 180 (80-105) H 07/01/17 09:55 POC ABG HCO3 17.8 07/01/17 09:55 POC ABG Total CO2 19 07/01/17 09:55 POC ABG O2 Sat 99 07/01/17 09:55 POC ABG Base Excess -9 07/01/17 09:55 FiO2 50 % 07/01/17 09:55 Sodium 144 mmol/L (137-145) 07/06/17 05:27 Potassium 2.9 mmol/L (3.6-5.0) L* 07/06/17 05:27 Chloride 106.3 mmol/L (98-107) 07/06/17 05:27 Carbon Dioxide 24 mmol/L (22-30) 07/06/17 05:27 Anion Gap 17 mmol/L 07/06/17 05:27 BUN 3 mg/dL (7-17) L 07/06/17 05:27 Creatinine 0.4 mg/dL (0.7-1.2) L 07/06/17 05:27 Estimated GFR > 60 ml/min 07/06/17 05:27 BUN/Creatinine Ratio 8 % 07/06/17 05:27 Glucose 129 mg/dL (65-100) H 07/06/17 05:27 POC Glucose 87 (70-105) 07/04/17 12:00 Ketones Quantitative Negative (Negative) 07/01/17 10:32 Osmolality 301 Mosm/kg 07/01/17 10:32 Lactic Acid 0.60 mmol/L (0.7-2.0) L 07/02/17 10:00 Calcium 8.4 mg/dL (8.4-10.2) 07/06/17 05:27 Phosphorus 1.80 mg/dL (2.5-4.5) L 07/02/17 17:59 Magnesium 1.90 mg/dL (1.7-2.3) 07/03/17 06:00 Total Bilirubin 0.30 mg/dL (0.1-1.2) 07/05/17 05:41 Direct Bilirubin < 0.2 mg/dL (0-0.2) 07/02/17 17:59 Indirect Bilirubin 0.1 mg/dL 07/02/17 17:59 AST 45 units/L (5-40) H 07/05/17 05:41 ALT 42 units/L (7-56) 07/05/17 05:41 Alkaline Phosphatase 82 units/L (35-129) 07/05/17 05:41 Ammonia 43.0 umol/L (25-60) 07/02/17 17:59 Total Creatine Kinase 1279 units/L (30-135) H 07/04/17 09:09 CK-MB (CK-2) 8.4 ng/mL (0.0-4.0) H 07/01/17 10:32 CK-MB (CK-2) Rel Index 0.9 (0-4) 07/01/17 10:32 Total Protein 6.4 g/dL (6.3-8.2) 07/05/17 05:41 Albumin 3.8 g/dL (3.9-5) L 07/05/17 05:41 Albumin/Globulin Ratio 1.5 % 07/05/17 05:41 Lipase 15 units/L (13-60) 07/02/17 17:59 Urine Color Red (Yellow) 07/01/17 09:49 Urine Turbidity Clear (Clear) 07/01/17 09:49 Urine pH 5.0 (5.0-7.0) 07/01/17 09:49 Ur Specific [place] 1.013 (1.003-1.030) 07/01/17 09:49 Urine Protein 30 mg/dl mg/dL (Negative) 07/01/17 09:49 Urine Glucose (UA) 150 mg/dL (Negative) 07/01/17 09:49 Urine Ketones Neg mg/dL (Negative) 07/01/17 09:49 Urine Blood Lg (Negative) 07/01/17 09:49 Urine Nitrite Neg (Negative) 07/01/17 09:49 Urine Bilirubin Neg (Negative) 07/01/17 09:49 Urine Urobilinogen < 2.0 mg/dL (<2.0) 07/01/17 09:49 Ur Leukocyte Esterase Neg (Negative) 07/01/17 09:49 Urine WBC (Auto) 1.0 /HPF (0.0-6.0) 07/01/17 09:49 Urine RBC (Auto) 1.0 /HPF (0.0-6.0) 07/01/17 09:49 U Epithel Cells (Auto) 1.0 /HPF (0-13.0) 07/01/17 09:49 Urine Mucus Few /HPF 07/01/17 09:49 Urine HCG, Qual Negative (Negative) 07/01/17 09:49 Salicylates < 0.3 mg/dL (2.8-20.0) L 07/01/17 08:30 Urine Opiates Screen Presumptive negative 07/01/17 09:49 Urine Methadone Screen Presumptive negative 07/01/17 09:49 Acetaminophen < 15.0 ug/mL (10.0-30.0) 07/01/17 08:30 Ur Barbiturates Screen Presumptive negative 07/01/17 09:49 Ur Phencyclidine Scrn Presumptive negative 07/01/17 09:49 Ur Amphetamines Screen Presumptive negative 07/01/17 09:49 U Benzodiazepines Scrn Presumptive positive 07/01/17 09:49 Urine Cocaine Screen Presumptive negative 07/01/17 09:49 U Marijuana (THC) Screen Presumptive positive 07/01/17 09:49 Drugs of Abuse Note Disclamer 07/01/17 09:49 Ethylene Glycol <10.0 mcg/mL (<10.0) 07/01/17 10:32 Plasma/Serum Alcohol < 0.01 gm% (0-0.07) 07/01/17 08:30 Blood Type O POSITIVE 07/01/17 08:35 Antibody Screen Negative 07/01/17 08:35 Hypokalemia
[2017-07-06] MEDS: DILANTIN PO SCH ×2 (14:30→22:38)
[2017-07-06] MEDS: LaMICtal PO SCH ×2 (14:31→22:39)
[2017-07-06 15:22] LABS: Anion Gap 22 mmol/L; BUN/Creatinine Ratio 8; Blood Urea Nitrogen 3 mg/dL (7-17); Calcium 8.9 mg/dL (8.4-10.2); Carbon Dioxide 23 mmol/L (22-30); Chloride 102.3 mmol/L (98-107); Glucose 134 mg/dL (65-100); Potassium 3.9 mmol/L (3.6-5.0); Sodium 143 mmol/L (137-145)
[2017-07-06] MEDS: D5NS 1,000 ML IV SCH (20:02)
[2017-07-06] MEDS ORDERED: ZONISAMIDE 100 MG PO SCH (22:00)
[2017-07-06] MEDS: TRILEPTAL PO SCH (22:38)
[2017-07-06] MEDS: LOVENOX SUB-Q SCH (22:39)
[2017-07-06] MEDS: ZONEGRAN (NF) PO SCH (22:55)
[2017-07-07] MEDS ORDERED: DILANTIN IV ONE ×2 (01:23→02:00)
[2017-07-07] MEDS ORDERED: ATIVAN IV PRN (01:24)
[2017-07-07] MEDS ORDERED: NACL 0.9% IV ONE (02:00)
[2017-07-07] MEDS: CLEOCIN 600 MG/50 mL 600 MG/50 ML BAG IV SCH (03:09)
[2017-07-07 05:20] LABS: Anion Gap 15 mmol/L; BUN/Creatinine Ratio 8; Blood Urea Nitrogen 4 mg/dL (7-17); Calcium 8.3 mg/dL (8.4-10.2); Carbon Dioxide 27 mmol/L (22-30); Chloride 102.5 mmol/L (98-107); Glucose 139 mg/dL (65-100); Potassium 3.2 mmol/L (3.6-5.0); Sodium 141 mmol/L (137-145)
[2017-07-07] MEDS: DILANTIN PO SCH ×3 (05:29→21:56)
--- NOTE | 2017-07-07 09:11 | XRay Report ---
Portable chest: Respiratory failure. Comparison prior study of July 06 demonstrates essentially no change. The lungs remain clear and the heart normal in size. Bilateral chondrocalcinosis of the shoulder joints and healed posterior left seventh rib fracture. Impression: No interval change.
--- NOTE | 2017-07-07 09:15 | Progress Note ---
Assessment and Plan Assessment and plan: 37 YO Female with hx of seizure disorder, although unknown at the time of admission Pt was [place] having [place] [employer] [place]. EMS notified, and upon arrival the patient was found to have active seizure activity as well as serum glucose of around 200. On exam the patient was lethargic, and hypoxic. EMS described activity as a generalized tonic clonic seizure. Pt was given Ativan, and versed for recurrent seizure activity. Pt developed respiratory distress suspected due to aspiration of gastric contents. EMS placed a nasal trumpet and actually used an adapter to bag the patient through the nasal trumpet. EMS state that the suspect patient took "Flakka". Pt seen and evaluated in ED and found to be in respiratory distress and is unable to protect her airway. Pt intubated and placed on vent support and admitted to ICU. No reports of fever, chills, CP, Palpitations, NVD, Syncope, Trauma, BRBPR, or known recent ill contacts. She was subsequently extubated and trasfered to the Telemetry floor. Informtion from Psych documents Per collateral from Justin Bay at [phone], he stated that the patient left the [facility] via [employer] last week. He stated that her family has been trying to contact her since her departure. He stated that the patient has a hx of seizure, but could not say if she has a mental health hx or dx. I informed Mr Bay to have the patients's family contact the medical and psychiatry team [facility]. He was given direct numbers to both teams. No gestures of SI/HI's by the patient. Per Collateral information from her stepmother Austin Morales at [phone], the patient has epilepsy. She stated that she cannot take Keppra, because she will become lethargic, combative, and nonverbal. She stated to her knowledge, her daughter has never attempted suicide. She stated that her daughter's neurologist prescribed Klonipine for anxiety. She also stated that her daughter has a hx of substance abuse (marijuana). Toxic Metabolic Encephalopathy * Possible secondary to substance abuse ?flakka(Zombie drug) In addition to THC * Patient denies use of any medication such as flakka, but states she smokes pot. * For now avoid Keppra * Neurology conulst * UDS is positive for benzo and marijuana * Will discontinue lamictal and haldol, also taper down clonidine * Mental health consult appreciated Seziure With Post ictal state * Continue Dilantin, PRN ATIVAN * Neurology following. Acute hypoxic respiratory failure * Patient was intubated and later extubated after evaluated by pulmonary * Breathing treatments, nebs * Patient is able to take care of her airways Sepsis secondary to Aspiration pneumonitis * Will discontnue clindamycin and start on PO levaquin Hypokalemia * repleted, check Magnesium DVT prophylaxis - On Lovenox Disposition - Continue inpatient care - No family at bedside to discuss History Interval history: Patient seen and examined no acute distress. Still lethargic. Requiring reorientation Hospitalist Physical - Physical exam Narrative exam: VITAL SIGNS: Reviewed. GENERAL: The patient appeared well nourished and normally developed. Lethargic Vital signs as documented. HEAD: No signs of head trauma. EYES: Pupils are equal. Extraocular motions intact. EARS: Hearing grossly intact. MOUTH: Oropharynx is normal. NECK: No adenopathy, no JVD. CHEST: Chest with clear breath sounds bilaterally. No wheezes, rales, or rhonchi. CARDIAC: Regular rate and rhythm. S1 and S2, without murmurs, gallops, or rubs. VASCULAR: No Edema. Peripheral pulses normal and equal in all extremities. ABDOMEN: Soft, without detectable tenderness. No sign of distention. No rebound or guarding, and no masses palpated. Bowel Sounds normal. MUSCULOSKELETAL: Good range of motion of all major joints. Extremities without clubbing, cyanosis or edema. NEUROLOGIC EXAM: Awake oriented to person but not bulging follows. Speech is slow Follows commands. PSYCHIATRIC: Mood depressed SKIN: Abrasion right upper extremity. Nontender and no associated warmth - Constitutional Vitals: Temp Pulse Resp BP Pulse Ox 97.8 F 101 H 20 106/72 97 07/07/17 06:10 07/07/17 06:10 07/07/17 06:10 07/07/17 06:10 07/07/17 06:10 General appearance: Present: severe distress Results - Labs CBC & Chem 7: 07/06/17 05:27 07/08/17 05:42 Labs: Laboratory Last Values WBC 9.3 K/mm3 (4.5-11.0) 07/06/17 05:27 RBC 3.43 M/mm3 (3.65-5.03) L 07/06/17 05:27 Hgb 11.9 gm/dl (10.1-14.3) 07/06/17 05:27 Hct 33.6 % (30.3-42.9) D 07/06/17 05:27 MCV 98 fl (79-97) H 07/06/17 05:27 MCH 35 pg (28-32) H 07/06/17 05:27 MCHC 36 % (30-34) H 07/06/17 05:27 RDW 13.1 % (13.2-15.2) L 07/06/17 05:27 Plt Count 255 K/mm3 (140-440) 07/06/17 05:27 Lymph % (Auto) 20.5 % (13.4-35.0) 07/06/17 05:27 [place] % (Auto) 8.6 % (0.0-7.3) H 07/06/17 05:27 Eos % (Auto) 0.6 % (0.0-4.3) 07/06/17 05:27 Baso % (Auto) 0.8 % (0.0-1.8) 07/06/17 05:27 Lymph # 1.9 K/mm3 (1.2-5.4) 07/06/17 05:27 [place] # 0.8 K/mm3 (0.0-0.8) 07/06/17 05:27 Eos # 0.1 K/mm3 (0.0-0.4) 07/06/17 05:27 Baso # 0.1 K/mm3 (0.0-0.1) 07/06/17 05:27 Add Manual Diff Complete 07/03/17 06:00 Total Counted 100 07/03/17 06:00 Seg Neutrophils % 69.5 % (40.0-70.0) 07/06/17 05:27 Seg Neuts % (Manual) 46.0 % (40.0-70.0) 07/03/17 06:00 Band Neutrophils % 24.0 % 07/03/17 06:00 Lymphocytes % (Manual) 22.0 % (13.4-35.0) 07/03/17 06:00 Reactive Lymphs % (Man) 0 % 07/03/17 06:00 Monocytes % (Manual) 8.0 % (0.0-7.3) H 07/03/17 06:00 Eosinophils % (Manual) 0 % (0.0-4.3) 07/03/17 06:00 Basophils % (Manual) 0 % (0.0-1.8) 07/03/17 06:00 Metamyelocytes % 0 % 07/03/17 06:00 Myelocytes % 0 % 07/03/17 06:00 Promyelocytes % 0 % 07/03/17 06:00 Blast Cells % 0 % 07/03/17 06:00 Nucleated RBC % Not Reportable 07/03/17 06:00 Seg Neutrophils # 6.4 K/mm3 (1.8-7.7) 07/06/17 05:27 Seg Neutrophils # Man 9.7 K/mm3 (1.8-7.7) H 07/03/17 06:00 Band Neutrophils # 5.1 K/mm3 07/03/17 06:00 Lymphocytes # (Manual) 4.6 K/mm3 (1.2-5.4) 07/03/17 06:00 Abs React Lymphs (Man) 0.0 K/mm3 07/03/17 06:00 Monocytes # (Manual) 1.7 K/mm3 (0.0-0.8) H 07/03/17 06:00 Eosinophils # (Manual) 0.0 K/mm3 (0.0-0.4) 07/03/17 06:00 Basophils # (Manual) 0.0 K/mm3 (0.0-0.1) 07/03/17 06:00 Metamyelocytes # 0.0 K/mm3 07/03/17 06:00 Myelocytes # 0.0 K/mm3 07/03/17 06:00 Promyelocytes # 0.0 K/mm3 07/03/17 06:00 Blast Cells # 0.0 K/mm3 07/03/17 06:00 WBC Morphology Not Reportable 07/03/17 06:00 Hypersegmented Neuts Not Reportable 07/03/17 06:00 Hyposegmented Neuts Not Reportable 07/03/17 06:00 Hypogranular Neuts Not Reportable 07/03/17 06:00 Smudge Cells Not Reportable 07/03/17 06:00 Toxic Granulation Not Reportable 07/03/17 06:00 Toxic Vacuolation Not Reportable 07/03/17 06:00 Dohle Bodies Not Reportable 07/03/17 06:00 Pelger-Huet Anomaly Not Reportable 07/03/17 06:00 [place] Rods Not Reportable 07/03/17 06:00 Platelet Estimate Appears normal 07/03/17 06:00 Clumped Platelets Not Reportable 07/03/17 06:00 Plt Clumps, EDTA Not Reportable 07/03/17 06:00 Large Platelets Not Reportable 07/03/17 06:00 Giant Platelets Not Reportable 07/03/17 06:00 Platelet Satelliting Not Reportable 07/03/17 06:00 Plt Morphology Comment Not Reportable 07/03/17 06:00 RBC Morphology Not Reportable 07/03/17 06:00 Dimorphic RBCs Not Reportable 07/03/17 06:00 Polychromasia Not Reportable 07/03/17 06:00 Hypochromasia 1+ 07/03/17 06:00 Poikilocytosis Not Reportable 07/03/17 06:00 Anisocytosis 1+ 07/03/17 06:00 Microcytosis Not Reportable 07/03/17 06:00 Macrocytosis Not Reportable 07/03/17 06:00 Spherocytes Not Reportable 07/03/17 06:00 Pappenheimer Bodies Not Reportable 07/03/17 06:00 Sickle Cells Not Reportable 07/03/17 06:00 Target Cells Not Reportable 07/03/17 06:00 Tear Drop Cells Not Reportable 07/03/17 06:00 Ovalocytes Not Reportable 07/03/17 06:00 Helmet Cells Not Reportable 07/03/17 06:00 Gaitan-Friedens Bodies Not Reportable 07/03/17 06:00 [place] Rings Not Reportable 07/03/17 06:00 [place] Cells Not Reportable 07/03/17 06:00 Bite Cells Not Reportable 07/03/17 06:00 Crenated Cell Not Reportable 07/03/17 06:00 Elliptocytes Not Reportable 07/03/17 06:00 Acanthocytes (Spur) Not Reportable 07/03/17 06:00 Rouleaux Not Reportable 07/03/17 06:00 Hemoglobin C Crystals Not Reportable 07/03/17 06:00 Schistocytes Not Reportable 07/03/17 06:00 Malaria parasites Not Reportable 07/03/17 06:00 [place] Bodies Not Reportable 07/03/17 06:00 Hem Pathologist Commnt No 07/03/17 06:00 POC ABG pH 7.281 (7.35-7.45) L 07/01/17 09:55 POC ABG pCO2 37.8 (35-45) 07/01/17 09:55 POC ABG pO2 180 (80-105) H 07/01/17 09:55 POC ABG HCO3 17.8 07/01/17 09:55 POC ABG Total CO2 19 07/01/17 09:55 POC ABG O2 Sat 99 07/01/17 09:55 POC ABG Base Excess -9 07/01/17 09:55 FiO2 50 % 07/01/17 09:55 Sodium 141 mmol/L (137-145) 07/07/17 04:42 Potassium 3.2 mmol/L (3.6-5.0) L 07/07/17 04:42 Chloride 102.5 mmol/L (98-107) 07/07/17 04:42 Carbon Dioxide 27 mmol/L (22-30) 07/07/17 04:42 Anion Gap 15 mmol/L 07/07/17 04:42 BUN 4 mg/dL (7-17) L 07/07/17 04:42 Creatinine 0.5 mg/dL (0.7-1.2) L 07/07/17 04:42 Estimated GFR > 60 ml/min 07/07/17 04:42 BUN/Creatinine Ratio 8 % 07/07/17 04:42 Glucose 139 mg/dL (65-100) H 07/07/17 04:42 POC Glucose 87 (70-105) 07/04/17 12:00 Ketones Quantitative Negative (Negative) 07/01/17 10:32 Osmolality 301 Mosm/kg 07/01/17 10:32 Lactic Acid 0.60 mmol/L (0.7-2.0) L 07/02/17 10:00 Calcium 8.3 mg/dL (8.4-10.2) L 07/07/17 04:42 Phosphorus 1.80 mg/dL (2.5-4.5) L 07/02/17 17:59 Magnesium 1.90 mg/dL (1.7-2.3) 07/03/17 06:00 Total Bilirubin 0.30 mg/dL (0.1-1.2) 07/05/17 05:41 Direct Bilirubin < 0.2 mg/dL (0-0.2) 07/02/17 17:59 Indirect Bilirubin 0.1 mg/dL 07/02/17 17:59 AST 45 units/L (5-40) H 07/05/17 05:41 ALT 42 units/L (7-56) 07/05/17 05:41 Alkaline Phosphatase 82 units/L (35-129) 07/05/17 05:41 Ammonia 43.0 umol/L (25-60) 07/02/17 17:59 Total Creatine Kinase 1279 units/L (30-135) H 07/04/17 09:09 CK-MB (CK-2) 8.4 ng/mL (0.0-4.0) H 07/01/17 10:32 CK-MB (CK-2) Rel Index 0.9 (0-4) 07/01/17 10:32 Total Protein 6.4 g/dL (6.3-8.2) 07/05/17 05:41 Albumin 3.8 g/dL (3.9-5) L 07/05/17 05:41 Albumin/Globulin Ratio 1.5 % 07/05/17 05:41 Lipase 15 units/L (13-60) 07/02/17 17:59 Urine Color Red (Yellow) 07/01/17 09:49 Urine Turbidity Clear (Clear) 07/01/17 09:49 Urine pH 5.0 (5.0-7.0) 07/01/17 09:49 Ur Specific [place] 1.013 (1.003-1.030) 07/01/17 09:49 Urine Protein 30 mg/dl mg/dL (Negative) 07/01/17 09:49 Urine Glucose (UA) 150 mg/dL (Negative) 07/01/17 09:49 Urine Ketones Neg mg/dL (Negative) 07/01/17 09:49 Urine Blood Lg (Negative) 07/01/17 09:49 Urine Nitrite Neg (Negative) 07/01/17 09:49 Urine Bilirubin Neg (Negative) 07/01/17 09:49 Urine Urobilinogen < 2.0 mg/dL (<2.0) 07/01/17 09:49 Ur Leukocyte Esterase Neg (Negative) 07/01/17 09:49 Urine WBC (Auto) 1.0 /HPF (0.0-6.0) 07/01/17 09:49 Urine RBC (Auto) 1.0 /HPF (0.0-6.0) 07/01/17 09:49 U Epithel Cells (Auto) 1.0 /HPF (0-13.0) 07/01/17 09:49 Urine Mucus Few /HPF 07/01/17 09:49 Urine HCG, Qual Negative (Negative) 07/01/17 09:49 Salicylates < 0.3 mg/dL (2.8-20.0) L 07/01/17 08:30 Urine Opiates Screen Presumptive negative 07/01/17 09:49 Urine Methadone Screen Presumptive negative 07/01/17 09:49 Acetaminophen < 15.0 ug/mL (10.0-30.0) 07/01/17 08:30 Ur Barbiturates Screen Presumptive negative 07/01/17 09:49 Ur Phencyclidine Scrn Presumptive negative 07/01/17 09:49 Ur Amphetamines Screen Presumptive negative 07/01/17 09:49 U Benzodiazepines Scrn Presumptive positive 07/01/17 09:49 Urine Cocaine Screen Presumptive negative 07/01/17 09:49 U Marijuana (THC) Screen Presumptive positive 07/01/17 09:49 Drugs of Abuse Note Disclamer 07/01/17 09:49 Ethylene Glycol <10.0 mcg/mL (<10.0) 07/01/17 10:32 Plasma/Serum Alcohol < 0.01 gm% (0-0.07) 07/01/17 08:30 Blood Type O POSITIVE 07/01/17 08:35 Antibody Screen Negative 07/01/17 08:35
[2017-07-07] MEDS: LaMICtal PO SCH (10:31)
[2017-07-07] MEDS: TRILEPTAL PO SCH ×2 (10:35→21:56)
[2017-07-07] MEDS: LEVAQUIN PO SCH (10:41)
--- NOTE | 2017-07-07 10:59 | History and Physical Report ---
History of Present Illness Date of examination: 07/07/17 Date of admission: 07/01/17 11:23 Chief complaint: NEUROLOGY CONSULT NOTE: CC: I am asked to see this 37 F for eval of recurrent Sz since admission 07/01. HPI: The history has become more clear following the investigations and note of Ceasar Ellsworth NP of 07/06, and the note of Dr Vern Castellanos of 07/07. The patient has a seizure disorder since the age of 3 (she states today...between periods of drifting off... she remains lethargic after a seizure in her room on the floor last night), and on an OPD basis takes Dilantin 100 mg po TID, and Klonopin 1 mg ?tid vs bid (for "anxiety"). She lives in [place] (cannot tell me town or address) where she works "[employer]". She apparently boarded a [employer] bus to visit friends in the area and apparently had a seizure on the bus or at a [employer] where EMS was summoned and she was found to be actively seizing ([facility] Sz). There was some question about whether or not she had taken "Flakka" a new [employer] drug. She had a nasal trumpet installed and was intubated here briefly for airway protection and has been treated for a suspected aspiration pneumonitis although her CXR is clear and WBC has dropped from 18 K on admission to normal. She apparently is followed by a neurologist at home but cannot tell me his/her name. She cannot tell me when her last Sz was, how many Sz she has per year, etc at this time. She has THC in her urine drug screen, naught else. Her head CT (images reviewed ) is normal. She became aggitated yesterday afternoon and last night had another seizure. As of last night she is on Dilantin 100 mg q 8hr, + Lamictal 100 mg bid, + Trileptal 600 mg bid + Klonopin 1 mg TID, and is quite groggy but cooperative. The Haldol 1 mg IM q 6hr prn aggitation has been dc'd. SH/FH: will be completed as more info is forthcoming/from patient and or family...??? some story we don't know here. MEDS/ALLERGIES: see chart EXAM: VS as recorded HEENT: nl, tongue sl bitten on right side Neck: supple, no bruits Cor: no m, rubs, tatoo on left breast Lungs: clear to A Abd: soft, bs nl Extrem: thin, some bruises on knees, tatoos on both feet NEURO EXAM MS - groggy but cooperative and arousable. orientation "[place] (cannot name city or street)", Year "1999", president cannot name. Where she IS presently she cannot state. Does follow most commands accurately albeit somewhat slowly CN - 2 - 12 OK. sl upbeating nystag bilat, low amplitude high frequency. MOT - nl strength all four extrem prox and distally SENS - denies loss to touch all four extrem DTRs - 3+ and symm all four extrem prox and distally, no ankle clonus, both great toes downgoing to planta stim. CEREB - clumbsy bilat (pt groggy) Gait - not tested due to fall risk DX IMP: 1. Seizure disorder since age of 3 (apparently) with recent breakthrough sz (? medication compliance vs too low a dose vs other cause) 2. Anixiety disoder ??? 3. Much missing information RECC: 1. As discussed with primary team, we will decrease Klonopin to 1 mg BID, stop the Lamictal, keep Dilantin and Trileptal with standby Ativan 2. I will get stat EEG this am 3. Obviously need more info from family and patient. 4. Go from there. Noemi Neil MD Past History Past Medical History: other (Unable to obtain) Past Surgical History: Other (Unable to obtain) Social history: other (Unable to obtain) Family history: no significant family history, other (unobtainable) Medications and Allergies Allergies Allergy/AdvReac Type Severity Reaction Status Date / Time levetiracetam [From [facility]] AdvReac Severe Unknown Verified 07/06/17 14:20 Home Medications Medication Instructions Recorded Confirmed Last Taken Type No Known Home Medications [No 07/02/17 07/02/17 Unknown History Reported Home Medications] Active Meds: Active Medications Al Hydrox/Mg Hydrox/Simethicone (Alum-Mag Hydrox-Simeth [id number]/5ml) 30 ml PO Q4H PRN PRN Reason: Indigestion Albuterol (Proventil) 2.5 mg IH Q3HRT PRN PRN Reason: Shortness Of Breath Lipase/Protease/Amylase (Theresa Steel 10,500 Unit) 1 each FEEDTUBE PRN PRN PRN Reason: For Clogged Feeding Tube Bisacodyl (Dulcolax) 10 mg KS QDAY PRN PRN Reason: constipation unrelieved by MOM Clonazepam (Klonopin) [address] [facility] Last Admin: 07/07/17 07:59 Dose: 1 mg Enoxaparin Sodium (Lovenox) 40 mg SUB-Q QDAY@2200 [facility] Last Admin: 07/06/17 22:39 Dose: 40 mg Hydrophilic Ointment (Vaseline Lip Therapy) 1 applic TP Q2HR PRN PRN Reason: Dry Lips Sodium Chloride (Nacl 0.9% 500 Ml) 500 mls @ 999 mls/hr IV PRN PRN PRN Reason: Hypotension Last Infusion: 07/01/17 16:42 Dose: Infused Lamotrigine (Lamictal) [address] [facility] Last Admin: 07/06/17 22:39 Dose: 100 mg Levofloxacin (Levaquin) 750 mg PO Q24HR DUANE Lorazepam (Ativan) 2 mg IV Q4H PRN PRN Reason: Seizures Magnesium Hydroxide (Milk Of Magnesia) 30 ml PO Q4H PRN PRN Reason: Constipation Multi-Ingred Cream/Lotion/Oil/Oint (Artificial Tears Ophth Oint) 1 applic OU Q4HR PRN PRN Reason: Dry Eye(s) Oxcarbazepine (Trileptal) [address] [facility] Last Admin: 07/06/17 22:38 Dose: 600 mg Phenytoin (Dilantin) [address] [facility] Last Admin: 07/07/17 05:29 Dose: 100 mg Potassium Chloride (K-Dur) 40 meq PO ONCE ONE Stop: 07/07/17 11:01 Simple Syrup (Simple Syrup) 15 ml FEEDTUBE PRN PRN PRN Reason: Hypoglycemia Simple Syrup (Simple Syrup) 30 ml FEEDTUBE PRN PRN PRN Reason: Hypoglycemia Sodium Bicarbonate (Sodium Bicarbonate) 325 mg FEEDTUBE PRN PRN PRN Reason: For Clogged Feeding Tube Zonisamide (Zonegran (Nf)) [address] [facility] Last Admin: 07/06/17 22:55 Dose: 100 mg Physical Examination - Vital Signs Vital Signs: Vital Signs Pulse 106 H 07/01/17 08:20 Results - Laboratory Findings CBC and BMP: 07/06/17 05:27 07/07/17 04:42 Abnormal Lab Findings: Abnormal Labs 07/01/17 07/02/17 07/02/17 12:45 08:41 10:00 WBC RBC MCV MCH MCHC RDW Lymph % (Auto) [place] % (Auto) Seg Neutrophils % Monocytes % (Manual) Seg Neutrophils # Seg Neutrophils # Man Monocytes # (Manual) Sodium Potassium Chloride Carbon Dioxide BUN Creatinine Glucose POC Glucose 117 H Lactic Acid 2.20 H* 0.60 L Calcium Phosphorus AST Total Creatine Kinase Total Protein Albumin 07/02/17 07/03/17 07/03/17 17:59 06:00 06:00 WBC 21.1 H RBC MCV 104 H MCH 35 H MCHC RDW Lymph % (Auto) [place] % (Auto) Seg Neutrophils % Monocytes % (Manual) 8.0 H Seg Neutrophils # Seg Neutrophils # Man 9.7 H Monocytes # (Manual) 1.7 H Sodium 146 H Potassium Chloride Carbon Dioxide 13 L BUN 5 L Creatinine 0.6 L Glucose 101 H POC Glucose Lactic Acid Calcium Phosphorus 1.80 L AST 51 H Total Creatine Kinase Total Protein 5.4 L Albumin 3.6 L 07/04/17 07/04/17 07/04/17 09:09 09:09 09:09 WBC 13.0 H RBC MCV 101 H MCH 34 H MCHC RDW Lymph % (Auto) 9.0 L [place] % (Auto) Seg Neutrophils % 84.2 H Monocytes % (Manual) Seg Neutrophils # 10.9 H Seg Neutrophils # Man Monocytes # (Manual) Sodium Potassium Chloride 110.0 H Carbon Dioxide 16 L BUN 5 L Creatinine 0.5 L Glucose POC Glucose Lactic Acid Calcium Phosphorus AST Total Creatine Kinase 1279 H Total Protein Albumin 07/05/17 07/05/17 07/06/17 05:41 05:41 05:27 WBC 12.2 H RBC 3.43 L MCV 100 H 98 H MCH 33 H 35 H MCHC 36 H RDW 13.1 L Lymph % (Auto) 12.3 L [place] % (Auto) 8.6 H Seg Neutrophils % 79.7 H Monocytes % (Manual) Seg Neutrophils # 9.7 H Seg Neutrophils # Man Monocytes # (Manual) Sodium Potassium 3.3 L Chloride Carbon Dioxide 20 L BUN 6 L Creatinine 0.4 L Glucose 112 H POC Glucose Lactic Acid Calcium Phosphorus AST 45 H Total Creatine Kinase Total Protein Albumin 3.8 L 07/06/17 07/06/17 07/07/17 05:27 14:39 04:42 WBC RBC MCV MCH MCHC RDW Lymph % (Auto) [place] % (Auto) Seg Neutrophils % Monocytes % (Manual) Seg Neutrophils # Seg Neutrophils # Man Monocytes # (Manual) Sodium Potassium 2.9 L* 3.2 L Chloride Carbon Dioxide BUN 3 L 3 L 4 L Creatinine 0.4 L 0.4 L 0.5 L Glucose 129 H 134 H 139 H POC Glucose Lactic Acid Calcium 8.3 L Phosphorus AST Total Creatine Kinase Total Protein Albumin
[2017-07-07] MEDS ORDERED: K-DUR PO ONE (11:00)
--- NOTE | 2017-07-07 12:20 | Progress Note ---
Subjective Date of service: 07/07/17 Principal diagnosis: seizures Interval history: NEUROLOGY PROGRESS NOTE: EEG today shows a background of mixed frequencies, 5 - 9 Hz, with 5 - 6 Hx theata noted more prominantly over the right cerebral hemiphere. Differentiated states of arousal are not identified. There is no epileptiform activity. IMP: Abnormal awake EEG due to generalized theta slowing noted more prominantly over the right cerebral hemisphere. No epileptiform activity is seen. Clinical correlation is needed. RECC: 1. Pursue current meds. 2. I will order MRI head. 3. Go from there. Noemi Neil MD Objective - Vital Sign Vital Signs - 12hr 07/07/17 07/07/17 07/07/17 01:16 01:18 03:02 Temperature 100.0 F H 100 F H Pulse Rate 117 H 116 H Respiratory 20 Rate Blood Pressure 128/83 118/82 Blood Pressure [Left] O2 Sat by Pulse 95 93 Oximetry 07/07/17 07/07/17 07/07/17 05:06 06:10 10:44 Temperature 97.8 F Pulse Rate 98 H 101 H Respiratory 20 Rate Blood Pressure 106/72 Blood Pressure 106/72 [Left] O2 Sat by Pulse 96 97 97 Oximetry - Laboratory Findings CBC and BMP: 07/06/17 05:27 07/07/17 04:42 Abnormal Lab Findings: Abnormal Labs 07/01/17 07/02/17 07/02/17 12:45 08:41 10:00 WBC RBC MCV MCH MCHC RDW Lymph % (Auto) [place] % (Auto) Seg Neutrophils % Monocytes % (Manual) Seg Neutrophils # Seg Neutrophils # Man Monocytes # (Manual) Sodium Potassium Chloride Carbon Dioxide BUN Creatinine Glucose POC Glucose 117 H Lactic Acid 2.20 H* 0.60 L Calcium Phosphorus AST Total Creatine Kinase Total Protein Albumin 07/02/17 07/03/17 07/03/17 17:59 06:00 06:00 WBC 21.1 H RBC MCV 104 H MCH 35 H MCHC RDW Lymph % (Auto) [place] % (Auto) Seg Neutrophils % Monocytes % (Manual) 8.0 H Seg Neutrophils # Seg Neutrophils # Man 9.7 H Monocytes # (Manual) 1.7 H Sodium 146 H Potassium Chloride Carbon Dioxide 13 L BUN 5 L Creatinine 0.6 L Glucose 101 H POC Glucose Lactic Acid Calcium Phosphorus 1.80 L AST 51 H Total Creatine Kinase Total Protein 5.4 L Albumin 3.6 L 07/04/17 07/04/17 07/04/17 09:09 09:09 09:09 WBC 13.0 H RBC MCV 101 H MCH 34 H MCHC RDW Lymph % (Auto) 9.0 L [place] % (Auto) Seg Neutrophils % 84.2 H Monocytes % (Manual) Seg Neutrophils # 10.9 H Seg Neutrophils # Man Monocytes # (Manual) Sodium Potassium Chloride 110.0 H Carbon Dioxide 16 L BUN 5 L Creatinine 0.5 L Glucose POC Glucose Lactic Acid Calcium Phosphorus AST Total Creatine Kinase 1279 H Total Protein Albumin 07/05/17 07/05/17 07/06/17 05:41 05:41 05:27 WBC 12.2 H RBC 3.43 L MCV 100 H 98 H MCH 33 H 35 H MCHC 36 H RDW 13.1 L Lymph % (Auto) 12.3 L [place] % (Auto) 8.6 H Seg Neutrophils % 79.7 H Monocytes % (Manual) Seg Neutrophils # 9.7 H Seg Neutrophils # Man Monocytes # (Manual) Sodium Potassium 3.3 L Chloride Carbon Dioxide 20 L BUN 6 L Creatinine 0.4 L Glucose 112 H POC Glucose Lactic Acid Calcium Phosphorus AST 45 H Total Creatine Kinase Total Protein Albumin 3.8 L 07/06/17 07/06/17 07/07/17 05:27 14:39 04:42 WBC RBC MCV MCH MCHC RDW Lymph % (Auto) [place] % (Auto) Seg Neutrophils % Monocytes % (Manual) Seg Neutrophils # Seg Neutrophils # Man Monocytes # (Manual) Sodium Potassium 2.9 L* 3.2 L Chloride Carbon Dioxide BUN 3 L 3 L 4 L Creatinine 0.4 L 0.4 L 0.5 L Glucose 129 H 134 H 139 H POC Glucose Lactic Acid Calcium 8.3 L Phosphorus AST Total Creatine Kinase Total Protein Albumin
--- NOTE | 2017-07-07 13:27 | Progress Note ---
Subjective - Reason for Consult Consult date: 07/07/17 Reason for consult: Psychiatry Follow-up - Chief Complaint Chief complaint: "Hi" 37 YO Female with Unknown PMH presents to ED for evaluation. Psychiatry consulted because of possible overdose. Today patient is calm and cooperative during the assessment. This was the first time the patient was able to answer questions. She stated that she don't remember what [place] [employer] bus [place]. She did state having a hx of seizures and that she takes medication her disorder. She stated that she take Klonopine for anxiety. She was able to recall 2/3 numbers (5, 9, 11) within 5 mins and ID the current [place] President. 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 She denies SI/HI's and AVH's. She denies any manic episodes. Per the notes, patient had a seizure overnight. Mental Status Exam - Vital signs Last Vital Signs Temp 97.8 F 07/07/17 06:10 Pulse 101 H 07/07/17 06:10 Resp 20 07/07/17 06:10 BP 106/72 07/07/17 06:10 Pulse Ox 97 07/07/17 10:44 - Exam Narrative exam: MSE: Appearance: calm, cooperative Behavior: regular eye contact Speech: regular rate and tone Mood: lethargic Affect: flat Thought Process: circumstantial Thought Content: denies SI/HI's and AVH's Motor Activity: lying in the bed Cognition: A/O x3 Insight: limited Judgment: variable Assessment and Plan Impression: Today patient is calm and cooperative during the assessment. Patient in not in restraints. Positive for marijuana/benzos. Medical: Acute Toxic Encephalopathy Recommendation/Plan: Neuro is following patient at this time. Delirium precautions below: 1. Frequently reorient patient and involve him/her in their care (simple explanations of procedures, tests, medications). 2. Lights on and shades open during daytime hours. 3. Try to avoid unnecessary interruptions to sleep during nighttime hours. 4. Obtain glasses, hearing aids from home if patient uses these at baseline. 5. Avoid medications that may exacerbate delirium (especially narcotics, barbiturates, ambien, lunesta, benzos, and medications with excessive anticholinergic properties).
--- NOTE | 2017-07-07 18:00 | Magnetic Resonance Report ---
FINAL REPORT EXAM: MR BRAIN WO CON HISTORY: seizures, hx Sz disorder TECHNIQUE: Multiplanar multisequence brain MR imaging without IV contrast. PRIORS: Head CT 07/01/2017 FINDINGS: The included air filled sinuses contain no acute fluid level. The brain is without mass, mass effect, hemorrhage, or acute infarct. There is no midline shift or brain edema. There are no areas of brain restricted diffusion to suggest an acute ischemic infarct. The ventricles and sulci are age-appropriate. IMPRESSION: No acute CVA or brain mass
[2017-07-07] MEDS: ZONEGRAN (NF) PO SCH (21:57)
[2017-07-07] MEDS: LOVENOX SUB-Q SCH (21:57)
[2017-07-08] MEDS: DILANTIN PO SCH ×2 (05:17→23:35)
[2017-07-08 06:55] LABS: Anion Gap 21 mmol/L; BUN/Creatinine Ratio 16; Blood Urea Nitrogen 8 mg/dL (7-17); Calcium 9.4 mg/dL (8.4-10.2); Carbon Dioxide 24 mmol/L (22-30); Chloride 101.4 mmol/L (98-107); Glucose 92 mg/dL (65-100); Potassium 4.6 mmol/L (3.6-5.0); Sodium 142 mmol/L (137-145)
--- NOTE | 2017-07-08 08:15 | Progress Note ---
Subjective Date of service: 07/08/17 Principal diagnosis: seizures Interval history: NEUROLOGY FOLLOW UP NOTE: MRI brain yesterday is NORMAL (images reviewed). FURTHER HX RE PSYCHOSOCIAL CHAOS: Yesterday I spoke on phone with pt's step-mother Austin Morales (in [place], [place]) [phone], who raised the patient from childhood pt's biologic father Elliot Morales (in [place], [place]) [phone], who is from his (not ) and is renting a room from a friend, has no car, "no way of getting Jeanette, no place to put her", [address]. He reported she has had Seizures since age 3, that he took her for years [facility] to see a neurologist, a psychiatrist, and a psychologist - but no psych Dx was ever given to him. 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 Most recently patient has been living in [facility] for 6 mos or so, worked for a [employer] using her DOLL REPAIRER skills, they had to let her go because of recurrent seizures. She was apparently worked up most recently at a hospital in [place], [place] - ?[facility]? (there are three hospitals in [place] and it is there that they did EEGs and determined that the seizures were coming from the frontal lobes and put her on her present meds = Dilantin + Lamicatl + Trileptal + her usual, decades long Klonopin 1mg tid. Patient has Medicaid Insurance in [place] (? [facility]) as of 6 mos ago. I have not called pt's biologic mother Zina Leigh (in [place], [place]) [phone], with whom patient does not get along well with ( according to step mother. Patient has no steady job, no money, no home. One week ago she was found at night wandering around a part near the [address] [place] "half naked ", was picked up by the police who took her to a hospital where to be checked out and from which she was released the next day. She apparently then boarded a [employer] bus bound for [facility] for a racing secretary and handicapper job --- but had her seizure -- - to us. a "man contacted us (said Jeanette's father) re wanting money back and items back that Jeanette had stolen from him" and this was four days ago. Both father and step mother informed Jeanette that further monetary support would no longer be forthcoming, this some 4 - 6 mos ago when father gave her $400 and she blew this on a trip with a boyfriend to [place] for [employer]. DX IMP. 1. Poorly controlled, long standing Sz disorder, on complex, expensive anticonvulsant regimen. 2. Hx of psych-social chaos, raising questions of mental capacity (to make decisions for herself at this point), capacity to follow and pay for her complex medical regimen (likely she was not, could not be, compliant with her medication regiment..hence break through seizures). 3. Homeless state, with no financial support, with serious neurologic problem, which further compromises her abilitiy to function (with break through seizures and side effects of powerful meds , ?other drugs). RECC: 1. Need Social Service/Case Management to pursue leads above to help piece together some reasonable disposition plan. I suggest finding answers to these questions: a. From mother, father, mother in law: was Jeanette ever diagnosed with learning disabilities? b. What WERE her psychiatric diagnoses...depression, manic-depression, "child out of control", what ??? c. Did she actually graduate from High School? What school? d. Need discharge summary from the hospital she was worked up in in [place] ? [place] re her seizure disorder, ? other diagnoses 2. May need Psychometric Testing (usu takes 4 hours) when pt's seizures are controlled, to discern patients mental capabilities 3. After more info learned, get back to psychiatrists re their opinion on Jeanette's Capacity to make decisions. 4. Continue current anti-Sz regimen. This will need to be simplified in future if possible. Noemi Neil MD Objective - Vital Sign Vital Signs - 12hr 07/07/17 07/07/17 07/08/17 21:18 22:00 00:00 Temperature 99.1 F 99.2 F Pulse Rate 88 90 102 H Respiratory 18 18 18 Rate Blood Pressure 112/81 99/69 O2 Sat by Pulse 97 96 94 Oximetry 07/08/17 04:45 Temperature 97.1 F L Pulse Rate 94 H Respiratory 18 Rate Blood Pressure 117/74 O2 Sat by Pulse 95 Oximetry - Laboratory Findings CBC and BMP: 07/06/17 05:27 07/08/17 05:42 Abnormal Lab Findings: Abnormal Labs 07/01/17 07/02/17 07/02/17 12:45 08:41 10:00 WBC RBC MCV MCH MCHC RDW Lymph % (Auto) [place] % (Auto) Seg Neutrophils % Monocytes % (Manual) Seg Neutrophils # Seg Neutrophils # Man Monocytes # (Manual) Sodium Potassium Chloride Carbon Dioxide BUN Creatinine Glucose POC Glucose 117 H Lactic Acid 2.20 H* 0.60 L Calcium Phosphorus AST Total Creatine Kinase Total Protein Albumin 07/02/17 07/03/17 07/03/17 17:59 06:00 06:00 WBC 21.1 H RBC MCV 104 H MCH 35 H MCHC RDW Lymph % (Auto) [place] % (Auto) Seg Neutrophils % Monocytes % (Manual) 8.0 H Seg Neutrophils # Seg Neutrophils # Man 9.7 H Monocytes # (Manual) 1.7 H Sodium 146 H Potassium Chloride Carbon Dioxide 13 L BUN 5 L Creatinine 0.6 L Glucose 101 H POC Glucose Lactic Acid Calcium Phosphorus 1.80 L AST 51 H Total Creatine Kinase Total Protein 5.4 L Albumin 3.6 L 07/04/17 07/04/17 07/04/17 09:09 09:09 09:09 WBC 13.0 H RBC MCV 101 H MCH 34 H MCHC RDW Lymph % (Auto) 9.0 L [place] % (Auto) Seg Neutrophils % 84.2 H Monocytes % (Manual) Seg Neutrophils # 10.9 H Seg Neutrophils # Man Monocytes # (Manual) Sodium Potassium Chloride 110.0 H Carbon Dioxide 16 L BUN 5 L Creatinine 0.5 L Glucose POC Glucose Lactic Acid Calcium Phosphorus AST Total Creatine Kinase 1279 H Total Protein Albumin 07/05/17 07/05/17 07/06/17 05:41 05:41 05:27 WBC 12.2 H RBC 3.43 L MCV 100 H 98 H MCH 33 H 35 H MCHC 36 H RDW 13.1 L Lymph % (Auto) 12.3 L [place] % (Auto) 8.6 H Seg Neutrophils % 79.7 H Monocytes % (Manual) Seg Neutrophils # 9.7 H Seg Neutrophils # Man Monocytes # (Manual) Sodium Potassium 3.3 L Chloride Carbon Dioxide 20 L BUN 6 L Creatinine 0.4 L Glucose 112 H POC Glucose Lactic Acid Calcium Phosphorus AST 45 H Total Creatine Kinase Total Protein Albumin 3.8 L 07/06/17 07/06/17 07/07/17 05:27 14:39 04:42 WBC RBC MCV MCH MCHC RDW Lymph % (Auto) [place] % (Auto) Seg Neutrophils % Monocytes % (Manual) Seg Neutrophils # Seg Neutrophils # Man Monocytes # (Manual) Sodium Potassium 2.9 L* 3.2 L Chloride Carbon Dioxide BUN 3 L 3 L 4 L Creatinine 0.4 L 0.4 L 0.5 L Glucose 129 H 134 H 139 H POC Glucose Lactic Acid Calcium 8.3 L Phosphorus AST Total Creatine Kinase Total Protein Albumin 07/08/17 05:42 WBC RBC MCV MCH MCHC RDW Lymph % (Auto) [place] % (Auto) Seg Neutrophils % Monocytes % (Manual) Seg Neutrophils # Seg Neutrophils # Man Monocytes # (Manual) Sodium Potassium Chloride Carbon Dioxide BUN Creatinine 0.5 L Glucose POC Glucose Lactic Acid Calcium Phosphorus AST Total Creatine Kinase Total Protein Albumin
--- NOTE | 2017-07-08 08:30 | XRay Report ---
PORTABLE CHEST INDICATION: Followup respiratory failure. COMPARISON: Yesterday. 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 CONCLUSION: No acute chest process or significant interval change, as described. Thank you for the opportunity to participate in this patient's care.
--- NOTE | 2017-07-08 09:54 | Progress Note ---
Assessment and Plan Assessment and plan: 37 YO Female with hx of seizure disorder, although unknown at the time of admission Pt was [place] [employer] [place]. EMS notified, and upon arrival the patient was found to have active seizure activity as well as serum glucose of around 200. On exam the patient was lethargic, and hypoxic. EMS described activity as a generalized tonic clonic seizure. Pt was given Ativan, and versed for recurrent seizure activity. Pt developed respiratory distress suspected due to aspiration of gastric contents. EMS placed a nasal trumpet and actually used an adapter to bag the patient through the nasal trumpet. EMS state that the suspect patient took "Flakka". Pt seen and evaluated in ED and found to be in respiratory distress and is unable to protect her airway. Pt intubated and placed on vent support and admitted to ICU. No reports of fever, chills, CP, Palpitations, NVD, Syncope, Trauma, BRBPR, or known recent ill contacts. She was subsequently extubated and trasfered to the Telemetry floor. Informtion from Psych documents Per collateral from Justin Bay at [phone], he stated that the patient left the [facility] via [employer] last week. He stated that her family has been trying to contact her since her departure. He stated that the patient has a hx of seizure, but could not say if she has a mental health hx or dx. I informed Mr Bay to have the patients's family contact the medical and psychiatry team [facility]. He was given direct numbers to both teams. No gestures of SI/HI's by the patient. Per Collateral information from her stepmother Austin Aranda at [phone], the patient has epilepsy. She stated that she cannot take Keppra, because she will become lethargic, combative, and nonverbal. She stated to her knowledge, her daughter has never attempted suicide. She stated that her daughter's neurologist prescribed Klonipine for anxiety. She also stated that her daughter has a hx of substance abuse (marijuana). Toxic Metabolic Encephalopathy * Possible secondary to substance abuse initially thought to have taken Flakka but appears to be only THC with repeated seizure * Patient denies use of any medication such as flakka, but states she smokes pot. * For now avoid Keppra * Neurology consult noted, extensive history from, family * UDS is positive for benzo and marijuana * discontinued lamictal and haldol, also taper down clonidine * Mental health consult appreciated * Reviewed with Neurology, too many social issues associated will request case management help for safe discharge planning * Restarted on restriants due to safety for patient and staff Seziure With Post ictal state * Continue Dilantin, PRN ATIVAN * Neurology following. Acute hypoxic respiratory failure * Patient was intubated and later extubated after evaluated by pulmonary * Breathing treatments, nebs * Patient is able to take care of her airways Sepsis secondary to Aspiration pneumonitis * Will discontnue clindamycin and start on PO levaquin Hypokalemia * repleted, check Magnesium DVT prophylaxis - On Lovenox Disposition - Continue inpatient care - No family at bedside to discuss -D/w Neurology extensively as he had discussed with family History Interval history: Patient seen and examined no acute distress. Still lethargic. Requiring reorientation persist, gait abnormality and more of delirium Hospitalist Physical - Physical exam Narrative exam: VITAL SIGNS: Reviewed. GENERAL: The patient appeared well nourished and normally developed. Lethargic Vital signs as documented. HEAD: No signs of head trauma. EYES: Pupils are equal. Extraocular motions intact. EARS: Hearing grossly intact. MOUTH: Oropharynx is normal. NECK: No adenopathy, no JVD. CHEST: Chest with clear breath sounds bilaterally. No wheezes, rales, or rhonchi. CARDIAC: Regular rate and rhythm. S1 and S2, without murmurs, gallops, or rubs. VASCULAR: No Edema. Peripheral pulses normal and equal in all extremities. ABDOMEN: Soft, without detectable tenderness. No sign of distention. No rebound or guarding, and no masses palpated. Bowel Sounds normal. MUSCULOSKELETAL: Good range of motion of all major joints. Extremities without clubbing, cyanosis or edema. NEUROLOGIC EXAM: Awake oriented to person but not bulging follows. Speech is slow, delirium but Follows some commands. PSYCHIATRIC: Mood depressed SKIN: Abrasion right upper extremity. Nontender and no associated warmth - Constitutional Vitals: Temp Pulse Resp BP Pulse Ox 97.1 F L 94 H 18 117/74 95 07/08/17 04:45 07/08/17 04:45 07/08/17 04:45 07/08/17 04:45 07/08/17 04:45 General appearance: Present: severe distress Results - Labs CBC & Chem 7: 07/06/17 05:27 07/08/17 05:42 Labs: Laboratory Last Values WBC 9.3 K/mm3 (4.5-11.0) 07/06/17 05:27 RBC 3.43 M/mm3 (3.65-5.03) L 07/06/17 05:27 Hgb 11.9 gm/dl (10.1-14.3) 07/06/17 05:27 Hct 33.6 % (30.3-42.9) D 07/06/17 05:27 MCV 98 fl (79-97) H 07/06/17 05:27 MCH 35 pg (28-32) H 07/06/17 05:27 MCHC 36 % (30-34) H 07/06/17 05:27 RDW 13.1 % (13.2-15.2) L 07/06/17 05:27 Plt Count 255 K/mm3 (140-440) 07/06/17 05:27 Lymph % (Auto) 20.5 % (13.4-35.0) 07/06/17 05:27 [place] % (Auto) 8.6 % (0.0-7.3) H 07/06/17 05:27 Eos % (Auto) 0.6 % (0.0-4.3) 07/06/17 05:27 Baso % (Auto) 0.8 % (0.0-1.8) 07/06/17 05:27 Lymph # 1.9 K/mm3 (1.2-5.4) 07/06/17 05:27 [place] # 0.8 K/mm3 (0.0-0.8) 07/06/17 05:27 Eos # 0.1 K/mm3 (0.0-0.4) 07/06/17 05:27 Baso # 0.1 K/mm3 (0.0-0.1) 07/06/17 05:27 Add Manual Diff Complete 07/03/17 06:00 Total Counted 100 07/03/17 06:00 Seg Neutrophils % 69.5 % (40.0-70.0) 07/06/17 05:27 Seg Neuts % (Manual) 46.0 % (40.0-70.0) 07/03/17 06:00 Band Neutrophils % 24.0 % 07/03/17 06:00 Lymphocytes % (Manual) 22.0 % (13.4-35.0) 07/03/17 06:00 Reactive Lymphs % (Man) 0 % 07/03/17 06:00 Monocytes % (Manual) 8.0 % (0.0-7.3) H 07/03/17 06:00 Eosinophils % (Manual) 0 % (0.0-4.3) 07/03/17 06:00 Basophils % (Manual) 0 % (0.0-1.8) 07/03/17 06:00 Metamyelocytes % 0 % 07/03/17 06:00 Myelocytes % 0 % 07/03/17 06:00 Promyelocytes % 0 % 07/03/17 06:00 Blast Cells % 0 % 07/03/17 06:00 Nucleated RBC % Not Reportable 07/03/17 06:00 Seg Neutrophils # 6.4 K/mm3 (1.8-7.7) 07/06/17 05:27 Seg Neutrophils # Man 9.7 K/mm3 (1.8-7.7) H 07/03/17 06:00 Band Neutrophils # 5.1 K/mm3 07/03/17 06:00 Lymphocytes # (Manual) 4.6 K/mm3 (1.2-5.4) 07/03/17 06:00 Abs React Lymphs (Man) 0.0 K/mm3 07/03/17 06:00 Monocytes # (Manual) 1.7 K/mm3 (0.0-0.8) H 07/03/17 06:00 Eosinophils # (Manual) 0.0 K/mm3 (0.0-0.4) 07/03/17 06:00 Basophils # (Manual) 0.0 K/mm3 (0.0-0.1) 07/03/17 06:00 Metamyelocytes # 0.0 K/mm3 07/03/17 06:00 Myelocytes # 0.0 K/mm3 07/03/17 06:00 Promyelocytes # 0.0 K/mm3 07/03/17 06:00 Blast Cells # 0.0 K/mm3 07/03/17 06:00 WBC Morphology Not Reportable 07/03/17 06:00 Hypersegmented Neuts Not Reportable 07/03/17 06:00 Hyposegmented Neuts Not Reportable 07/03/17 06:00 Hypogranular Neuts Not Reportable 07/03/17 06:00 Smudge Cells Not Reportable 07/03/17 06:00 Toxic Granulation Not Reportable 07/03/17 06:00 Toxic Vacuolation Not Reportable 07/03/17 06:00 Dohle Bodies Not Reportable 07/03/17 06:00 Pelger-Huet Anomaly Not Reportable 07/03/17 06:00 [place] Rods Not Reportable 07/03/17 06:00 Platelet Estimate Appears normal 07/03/17 06:00 Clumped Platelets Not Reportable 07/03/17 06:00 Plt Clumps, EDTA Not Reportable 07/03/17 06:00 Large Platelets Not Reportable 07/03/17 06:00 Giant Platelets Not Reportable 07/03/17 06:00 Platelet Satelliting Not Reportable 07/03/17 06:00 Plt Morphology Comment Not Reportable 07/03/17 06:00 RBC Morphology Not Reportable 07/03/17 06:00 Dimorphic RBCs Not Reportable 07/03/17 06:00 Polychromasia Not Reportable 07/03/17 06:00 Hypochromasia 1+ 07/03/17 06:00 Poikilocytosis Not Reportable 07/03/17 06:00 Anisocytosis 1+ 07/03/17 06:00 Microcytosis Not Reportable 07/03/17 06:00 Macrocytosis Not Reportable 07/03/17 06:00 Spherocytes Not Reportable 07/03/17 06:00 Pappenheimer Bodies Not Reportable 07/03/17 06:00 Sickle Cells Not Reportable 07/03/17 06:00 Target Cells Not Reportable 07/03/17 06:00 Tear Drop Cells Not Reportable 07/03/17 06:00 Ovalocytes Not Reportable 07/03/17 06:00 Helmet Cells Not Reportable 07/03/17 06:00 Gaitan-[place] Bodies Not Reportable 07/03/17 06:00 [place] Rings Not Reportable 07/03/17 06:00 Kevin Cells Not Reportable 07/03/17 06:00 Bite Cells Not Reportable 07/03/17 06:00 Crenated Cell Not Reportable 07/03/17 06:00 Elliptocytes Not Reportable 07/03/17 06:00 Acanthocytes (Spur) Not Reportable 07/03/17 06:00 Rouleaux Not Reportable 07/03/17 06:00 Hemoglobin C Crystals Not Reportable 07/03/17 06:00 Schistocytes Not Reportable 07/03/17 06:00 Malaria parasites Not Reportable 07/03/17 06:00 [place]on Bodies Not Reportable 07/03/17 06:00 Hem Pathologist Commnt No 07/03/17 06:00 POC ABG pH 7.281 (7.35-7.45) L 07/01/17 09:55 POC ABG pCO2 37.8 (35-45) 07/01/17 09:55 POC ABG pO2 180 (80-105) H 07/01/17 09:55 POC ABG HCO3 17.8 07/01/17 09:55 POC ABG Total CO2 19 07/01/17 09:55 POC ABG O2 Sat 99 07/01/17 09:55 POC ABG Base Excess -9 07/01/17 09:55 FiO2 50 % 07/01/17 09:55 Sodium 142 mmol/L (137-145) 07/08/17 05:42 Potassium 4.6 mmol/L (3.6-5.0) D 07/08/17 05:42 Chloride 101.4 mmol/L (98-107) 07/08/17 05:42 Carbon Dioxide 24 mmol/L (22-30) 07/08/17 05:42 Anion Gap 21 mmol/L 07/08/17 05:42 BUN 8 mg/dL (7-17) 07/08/17 05:42 Creatinine 0.5 mg/dL (0.7-1.2) L 07/08/17 05:42 Estimated GFR > 60 ml/min 07/08/17 05:42 BUN/Creatinine Ratio 16 % 07/08/17 05:42 Glucose 92 mg/dL (65-100) 07/08/17 05:42 POC Glucose 87 (70-105) 07/04/17 12:00 Ketones Quantitative Negative (Negative) 07/01/17 10:32 Osmolality 301 Mosm/kg 07/01/17 10:32 Lactic Acid 0.60 mmol/L (0.7-2.0) L 07/02/17 10:00 Calcium 9.4 mg/dL (8.4-10.2) 07/08/17 05:42 Phosphorus 1.80 mg/dL (2.5-4.5) L 07/02/17 17:59 Magnesium 1.90 mg/dL (1.7-2.3) 07/03/17 06:00 Total Bilirubin 0.30 mg/dL (0.1-1.2) 07/05/17 05:41 Direct Bilirubin < 0.2 mg/dL (0-0.2) 07/02/17 17:59 Indirect Bilirubin 0.1 mg/dL 07/02/17 17:59 AST 45 units/L (5-40) H 07/05/17 05:41 ALT 42 units/L (7-56) 07/05/17 05:41 Alkaline Phosphatase 82 units/L (35-129) 07/05/17 05:41 Ammonia 43.0 umol/L (25-60) 07/02/17 17:59 Total Creatine Kinase 1279 units/L (30-135) H 07/04/17 09:09 CK-MB (CK-2) 8.4 ng/mL (0.0-4.0) H 07/01/17 10:32 CK-MB (CK-2) Rel Index 0.9 (0-4) 07/01/17 10:32 Total Protein 6.4 g/dL (6.3-8.2) 07/05/17 05:41 Albumin 3.8 g/dL (3.9-5) L 07/05/17 05:41 Albumin/Globulin Ratio 1.5 % 07/05/17 05:41 Lipase 15 units/L (13-60) 07/02/17 17:59 Urine Color Red (Yellow) 07/01/17 09:49 Urine Turbidity Clear (Clear) 07/01/17 09:49 Urine pH 5.0 (5.0-7.0) 07/01/17 09:49 Ur Specific [place] 1.013 (1.003-1.030) 07/01/17 09:49 Urine Protein 30 mg/dl mg/dL (Negative) 07/01/17 09:49 Urine Glucose (UA) 150 mg/dL (Negative) 07/01/17 09:49 Urine Ketones Neg mg/dL (Negative) 07/01/17 09:49 Urine Blood Lg (Negative) 07/01/17 09:49 Urine Nitrite Neg (Negative) 07/01/17 09:49 Urine Bilirubin Neg (Negative) 07/01/17 09:49 Urine Urobilinogen < 2.0 mg/dL (<2.0) 07/01/17 09:49 Ur Leukocyte Esterase Neg (Negative) 07/01/17 09:49 Urine WBC (Auto) 1.0 /HPF (0.0-6.0) 07/01/17 09:49 Urine RBC (Auto) 1.0 /HPF (0.0-6.0) 07/01/17 09:49 U Epithel Cells (Auto) 1.0 /HPF (0-13.0) 07/01/17 09:49 Urine Mucus Few /HPF 07/01/17 09:49 Urine HCG, Qual Negative (Negative) 07/01/17 09:49 Salicylates < 0.3 mg/dL (2.8-20.0) L 07/01/17 08:30 Urine Opiates Screen Presumptive negative 07/01/17 09:49 Urine Methadone Screen Presumptive negative 07/01/17 09:49 Acetaminophen < 15.0 ug/mL (10.0-30.0) 07/01/17 08:30 Ur Barbiturates Screen Presumptive negative 07/01/17 09:49 Ur Phencyclidine Scrn Presumptive negative 07/01/17 09:49 Ur Amphetamines Screen Presumptive negative 07/01/17 09:49 U Benzodiazepines Scrn Presumptive positive 07/01/17 09:49 Urine Cocaine Screen Presumptive negative 07/01/17 09:49 U Marijuana (THC) Screen Presumptive positive 07/01/17 09:49 Drugs of Abuse Note Disclamer 07/01/17 09:49 Ethylene Glycol <10.0 mcg/mL (<10.0) 07/01/17 10:32 Plasma/Serum Alcohol < 0.01 gm% (0-0.07) 07/01/17 08:30 Blood Type O POSITIVE 07/01/17 08:35 Antibody Screen Negative 07/01/17 08:35
[2017-07-08] MEDS: LEVAQUIN PO SCH (10:40)
[2017-07-08] MEDS: TRILEPTAL PO SCH ×2 (10:41→23:37)
--- NOTE | 2017-07-08 15:42 | Progress Note ---
Subjective Date of service: 07/08/17 Principal diagnosis: seizures Interval history: NEUROLOGY PROGRESS NOTE: FURTHER HX FROM PATIENTS MOTHER CONSTANTINO LEIGH ([place], [place]...[phone]) Mrs Leigh called me. We had a good talk. I updated her on Jeanette's progress. 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 Mother has observed episodes of Sejal but pt has not had this Dx's * has been [facility] at [facility] in [place] * was most recently worked up by a Dr Edmond Quevedo, Neurologist in [place], [place] who put her on her current anti-Sz regimen [phone] * has lived in [facility] for only two months and Medicaid [place] likely is from [place]. 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 No one in family knew any thing about her being back in [place]. NEW DXs: 1. Learning Disabilities with hx of special schooling 2. Depression 3. Pos Fam Hx of Seizures RECC: 1. Perhaps some sort of nursing home house ... "safe house"... type of place might work best re dispo. Noemi Neil MD Objective - Vital Sign Vital Signs - 12hr 07/08/17 07/08/17 07/08/17 04:45 08:00 12:00 Temperature 97.1 F L 98.2 F 98.9 F Pulse Rate 94 H 89 94 H Respiratory 18 18 18 Rate Blood Pressure 117/74 Blood Pressure 106/71 95/60 [Left] O2 Sat by Pulse 95 97 93 Oximetry - Laboratory Findings CBC and BMP: 07/06/17 05:27 07/08/17 05:42 Abnormal Lab Findings: Abnormal Labs 07/01/17 07/02/17 07/02/17 12:45 08:41 10:00 WBC RBC MCV MCH MCHC RDW Lymph % (Auto) [place] % (Auto) Seg Neutrophils % Monocytes % (Manual) Seg Neutrophils # Seg Neutrophils # Man Monocytes # (Manual) Sodium Potassium Chloride Carbon Dioxide BUN Creatinine Glucose POC Glucose 117 H Lactic Acid 2.20 H* 0.60 L Calcium Phosphorus AST Total Creatine Kinase Total Protein Albumin 07/02/17 07/03/17 07/03/17 17:59 06:00 06:00 WBC 21.1 H RBC MCV 104 H MCH 35 H MCHC RDW Lymph % (Auto) [place] % (Auto) Seg Neutrophils % Monocytes % (Manual) 8.0 H Seg Neutrophils # Seg Neutrophils # Man 9.7 H Monocytes # (Manual) 1.7 H Sodium 146 H Potassium Chloride Carbon Dioxide 13 L BUN 5 L Creatinine 0.6 L Glucose 101 H POC Glucose Lactic Acid Calcium Phosphorus 1.80 L AST 51 H Total Creatine Kinase Total Protein 5.4 L Albumin 3.6 L 07/04/17 07/04/17 07/04/17 09:09 09:09 09:09 WBC 13.0 H RBC MCV 101 H MCH 34 H MCHC RDW Lymph % (Auto) 9.0 L [place] % (Auto) Seg Neutrophils % 84.2 H Monocytes % (Manual) Seg Neutrophils # 10.9 H Seg Neutrophils # Man Monocytes # (Manual) Sodium Potassium Chloride 110.0 H Carbon Dioxide 16 L BUN 5 L Creatinine 0.5 L Glucose POC Glucose Lactic Acid Calcium Phosphorus AST Total Creatine Kinase 1279 H Total Protein Albumin 07/05/17 07/05/17 07/06/17 05:41 05:41 05:27 WBC 12.2 H RBC 3.43 L MCV 100 H 98 H MCH 33 H 35 H MCHC 36 H RDW 13.1 L Lymph % (Auto) 12.3 L [place] % (Auto) 8.6 H Seg Neutrophils % 79.7 H Monocytes % (Manual) Seg Neutrophils # 9.7 H Seg Neutrophils # Man Monocytes # (Manual) Sodium Potassium 3.3 L Chloride Carbon Dioxide 20 L BUN 6 L Creatinine 0.4 L Glucose 112 H POC Glucose Lactic Acid Calcium Phosphorus AST 45 H Total Creatine Kinase Total Protein Albumin 3.8 L 07/06/17 07/06/17 07/07/17 05:27 14:39 04:42 WBC RBC MCV MCH MCHC RDW Lymph % (Auto) [place] % (Auto) Seg Neutrophils % Monocytes % (Manual) Seg Neutrophils # Seg Neutrophils # Man Monocytes # (Manual) Sodium Potassium 2.9 L* 3.2 L Chloride Carbon Dioxide BUN 3 L 3 L 4 L Creatinine 0.4 L 0.4 L 0.5 L Glucose 129 H 134 H 139 H POC Glucose Lactic Acid Calcium 8.3 L Phosphorus AST Total Creatine Kinase Total Protein Albumin 07/08/17 05:42 WBC RBC MCV MCH MCHC RDW Lymph % (Auto) [place] % (Auto) Seg Neutrophils % Monocytes % (Manual) Seg Neutrophils # Seg Neutrophils # Man Monocytes # (Manual) Sodium Potassium Chloride Carbon Dioxide BUN Creatinine 0.5 L Glucose POC Glucose Lactic Acid Calcium Phosphorus AST Total Creatine Kinase Total Protein Albumin
[2017-07-08] MEDS: LOVENOX SUB-Q SCH (23:36)
[2017-07-09] MEDS: ZONEGRAN (NF) PO SCH ×2 (00:53→22:53)
[2017-07-09] MEDS ORDERED: NACL 0.9% 1000 ML 1,000 ML IV ONE (08:11)
--- NOTE | 2017-07-09 08:13 | Progress Note ---
Assessment and Plan Assessment and plan: 37 YO Female with hx of seizure disorder, although unknown at the time of admission Pt was observed having seizure activity [place] [employer]. EMS notified, and upon arrival the patient was found to have active seizure activity as well as serum glucose of around 200. On exam the patient was lethargic, and hypoxic. EMS described activity as a generalized tonic clonic seizure. Pt was given Ativan, and versed for recurrent seizure activity. Pt developed respiratory distress suspected due to aspiration of gastric contents. EMS placed a nasal trumpet and actually used an adapter to bag the patient through the nasal trumpet. EMS state that the suspect patient took "Flakka". Pt seen and evaluated in ED and found to be in respiratory distress and is unable to protect her airway. Pt intubated and placed on vent support and admitted to ICU. No reports of fever, chills, CP, Palpitations, NVD, Syncope, Trauma, BRBPR, or known recent ill contacts. She was subsequently extubated and trasfered to the Telemetry floor. Informtion from Psych documents Per collateral from Justin Bay at [phone], he stated that the patient left the [facility] via [employer] last week. He stated that her family has been trying to contact her since her departure. He stated that the patient has a hx of seizure, but could not say if she has a mental health hx or dx. I informed Mr Bay to have the patients's family contact the medical and psychiatry team [facility]. He was given direct numbers to both teams. No gestures of SI/HI's by the patient. Per Collateral information from her stepmother Austin Aranda at [phone], the patient has epilepsy. She stated that she cannot take Keppra, because she will become lethargic, combative, and nonverbal. She stated to her knowledge, her daughter has never attempted suicide. She stated that her daughter's neurologist prescribed Klonipine for anxiety. She also stated that her daughter has a hx of substance abuse (marijuana). Toxic Metabolic Encephalopathy * Possible secondary to substance abuse initially thought to have taken Flakka but appears to be only THC with repeated seizure * Patient denies use of any medication such as flakka, but states she smokes pot. * For now avoid Keppra * Discussed with staff, we can fix that collectively * Neurology consult noted, extensive history from, family * UDS is positive for benzo and marijuana * discontinued lamictal and haldol, also taper down clonidine * Mental health consult appreciated * Reviewed with Neurology, too many social issues associated will request case management help for safe discharge planning * Restarted on restriants due to safety for patient and staff Hypotension: * Give a bolus of IV fluid Seziure With Post ictal state * Continue Dilantin, PRN ATIVAN * Neurology following. Acute hypoxic respiratory failure * S/P Mechanical ventilation <96hrs * Breathing treatments, nebs * Patient is able to take care of her airways Sepsis secondary to Aspiration pneumonitis * Continue on PO levaquin Hypokalemia * repleted, DVT prophylaxis - On Lovenox Disposition - Continue inpatient care - No family at bedside to discuss -D/w Neurology extensively as he had discussed with family -diSCHARGE WHEN CLInically L STABLE P History Interval history: Patient seen and examined no acute distress. while patient knows that she is at the hospital although she is Requiring reorientation persist, gait abnormality and more of delirium Hospitalist Physical - Physical exam Narrative exam: VITAL SIGNS: Reviewed. GENERAL: The patient appeared well nourished and normally developed. Lethargic Vital signs as documented. HEAD: No signs of head trauma. EYES: Pupils are equal. Extraocular motions intact. EARS: Hearing grossly intact. MOUTH: Oropharynx is normal. NECK: No adenopathy, no JVD. CHEST: Chest with clear breath sounds bilaterally. No wheezes, rales, or rhonchi. CARDIAC: Regular rate and rhythm. S1 and S2, without murmurs, gallops, or rubs. VASCULAR: No Edema. Peripheral pulses normal and equal in all extremities. ABDOMEN: Soft, without detectable tenderness. No sign of distention. No rebound or guarding, and no masses palpated. Bowel Sounds normal. MUSCULOSKELETAL: Good range of motion of all major joints. Extremities without clubbing, cyanosis or edema. NEUROLOGIC EXAM: Awake oriented to person but not bulging follows. Speech is slow, delirium but Follows some commands. PSYCHIATRIC: Mood depressed SKIN: Abrasion right upper extremity. Nontender and no associated warmth - Constitutional Vitals: Temp Pulse Resp BP Pulse Ox 97.8 F 99 H 16 88/59 95 07/08/17 23:29 07/08/17 16:55 07/08/17 23:29 07/08/17 16:55 07/08/17 16:55 General appearance: Present: severe distress Results - Labs CBC & Chem 7: 07/06/17 05:27 07/09/17 12:28 Labs: Laboratory Last Values WBC 9.3 K/mm3 (4.5-11.0) 07/06/17 05:27 RBC 3.43 M/mm3 (3.65-5.03) L 07/06/17 05:27 Hgb 11.9 gm/dl (10.1-14.3) 07/06/17 05:27 Hct 33.6 % (30.3-42.9) D 07/06/17 05:27 MCV 98 fl (79-97) H 07/06/17 05:27 MCH 35 pg (28-32) H 07/06/17 05:27 MCHC 36 % (30-34) H 07/06/17 05:27 RDW 13.1 % (13.2-15.2) L 07/06/17 05:27 Plt Count 255 K/mm3 (140-440) 07/06/17 05:27 Lymph % (Auto) 20.5 % (13.4-35.0) 07/06/17 05:27 [place] % (Auto) 8.6 % (0.0-7.3) H 07/06/17 05:27 Eos % (Auto) 0.6 % (0.0-4.3) 07/06/17 05:27 Baso % (Auto) 0.8 % (0.0-1.8) 07/06/17 05:27 Lymph # 1.9 K/mm3 (1.2-5.4) 07/06/17 05:27 [place] # 0.8 K/mm3 (0.0-0.8) 07/06/17 05:27 Eos # 0.1 K/mm3 (0.0-0.4) 07/06/17 05:27 Baso # 0.1 K/mm3 (0.0-0.1) 07/06/17 05:27 Add Manual Diff Complete 07/03/17 06:00 Total Counted 100 07/03/17 06:00 Seg Neutrophils % 69.5 % (40.0-70.0) 07/06/17 05:27 Seg Neuts % (Manual) 46.0 % (40.0-70.0) 07/03/17 06:00 Band Neutrophils % 24.0 % 07/03/17 06:00 Lymphocytes % (Manual) 22.0 % (13.4-35.0) 07/03/17 06:00 Reactive Lymphs % (Man) 0 % 07/03/17 06:00 Monocytes % (Manual) 8.0 % (0.0-7.3) H 07/03/17 06:00 Eosinophils % (Manual) 0 % (0.0-4.3) 07/03/17 06:00 Basophils % (Manual) 0 % (0.0-1.8) 07/03/17 06:00 Metamyelocytes % 0 % 07/03/17 06:00 Myelocytes % 0 % 07/03/17 06:00 Promyelocytes % 0 % 07/03/17 06:00 Blast Cells % 0 % 07/03/17 06:00 Nucleated RBC % Not Reportable 07/03/17 06:00 Seg Neutrophils # 6.4 K/mm3 (1.8-7.7) 07/06/17 05:27 Seg Neutrophils # Man 9.7 K/mm3 (1.8-7.7) H 07/03/17 06:00 Band Neutrophils # 5.1 K/mm3 07/03/17 06:00 Lymphocytes # (Manual) 4.6 K/mm3 (1.2-5.4) 07/03/17 06:00 Abs React Lymphs (Man) 0.0 K/mm3 07/03/17 06:00 Monocytes # (Manual) 1.7 K/mm3 (0.0-0.8) H 07/03/17 06:00 Eosinophils # (Manual) 0.0 K/mm3 (0.0-0.4) 07/03/17 06:00 Basophils # (Manual) 0.0 K/mm3 (0.0-0.1) 07/03/17 06:00 Metamyelocytes # 0.0 K/mm3 07/03/17 06:00 Myelocytes # 0.0 K/mm3 07/03/17 06:00 Promyelocytes # 0.0 K/mm3 07/03/17 06:00 Blast Cells # 0.0 K/mm3 07/03/17 06:00 WBC Morphology Not Reportable 07/03/17 06:00 Hypersegmented Neuts Not Reportable 07/03/17 06:00 Hyposegmented Neuts Not Reportable 07/03/17 06:00 Hypogranular Neuts Not Reportable 07/03/17 06:00 Smudge Cells Not Reportable 07/03/17 06:00 Toxic Granulation Not Reportable 07/03/17 06:00 Toxic Vacuolation Not Reportable 07/03/17 06:00 Dohle Bodies Not Reportable 07/03/17 06:00 Pelger-Huet Anomaly Not Reportable 07/03/17 06:00 [place] Rods Not Reportable 07/03/17 06:00 Platelet Estimate Appears normal 07/03/17 06:00 Clumped Platelets Not Reportable 07/03/17 06:00 Plt Clumps, EDTA Not Reportable 07/03/17 06:00 Large Platelets Not Reportable 07/03/17 06:00 Giant Platelets Not Reportable 07/03/17 06:00 Platelet Satelliting Not Reportable 07/03/17 06:00 Plt Morphology Comment Not Reportable 07/03/17 06:00 RBC Morphology Not Reportable 07/03/17 06:00 Dimorphic RBCs Not Reportable 07/03/17 06:00 Polychromasia Not Reportable 07/03/17 06:00 Hypochromasia 1+ 07/03/17 06:00 Poikilocytosis Not Reportable 07/03/17 06:00 Anisocytosis 1+ 07/03/17 06:00 Microcytosis Not Reportable 07/03/17 06:00 Macrocytosis Not Reportable 07/03/17 06:00 Spherocytes Not Reportable 07/03/17 06:00 Pappenheimer Bodies Not Reportable 07/03/17 06:00 Sickle Cells Not Reportable 07/03/17 06:00 Target Cells Not Reportable 07/03/17 06:00 Tear Drop Cells Not Reportable 07/03/17 06:00 Ovalocytes Not Reportable 07/03/17 06:00 Helmet Cells Not Reportable 07/03/17 06:00 [place] Bodies Not Reportable 07/03/17 06:00 [place] Rings Not Reportable 07/03/17 06:00 Kevin Cells Not Reportable 07/03/17 06:00 Bite Cells Not Reportable 07/03/17 06:00 Crenated Cell Not Reportable 07/03/17 06:00 Elliptocytes Not Reportable 07/03/17 06:00 Acanthocytes (Spur) Not Reportable 07/03/17 06:00 Rouleaux Not Reportable 07/03/17 06:00 Hemoglobin C Crystals Not Reportable 07/03/17 06:00 Schistocytes Not Reportable 07/03/17 06:00 Malaria parasites Not Reportable 07/03/17 06:00 [place] Bodies Not Reportable 07/03/17 06:00 Hem Pathologist Commnt No 07/03/17 06:00 POC ABG pH 7.281 (7.35-7.45) L 07/01/17 09:55 POC ABG pCO2 37.8 (35-45) 07/01/17 09:55 POC ABG pO2 180 (80-105) H 07/01/17 09:55 POC ABG HCO3 17.8 07/01/17 09:55 POC ABG Total CO2 19 07/01/17 09:55 POC ABG O2 Sat 99 07/01/17 09:55 POC ABG Base Excess -9 07/01/17 09:55 FiO2 50 % 07/01/17 09:55 Sodium 142 mmol/L (137-145) 07/08/17 05:42 Potassium 4.6 mmol/L (3.6-5.0) D 07/08/17 05:42 Chloride 101.4 mmol/L (98-107) 07/08/17 05:42 Carbon Dioxide 24 mmol/L (22-30) 07/08/17 05:42 Anion Gap 21 mmol/L 07/08/17 05:42 BUN 8 mg/dL (7-17) 07/08/17 05:42 Creatinine 0.5 mg/dL (0.7-1.2) L 07/08/17 05:42 Estimated GFR > 60 ml/min 07/08/17 05:42 BUN/Creatinine Ratio 16 % 07/08/17 05:42 Glucose 92 mg/dL (65-100) 07/08/17 05:42 POC Glucose 87 (70-105) 07/04/17 12:00 Ketones Quantitative Negative (Negative) 07/01/17 10:32 Osmolality 301 Mosm/kg 07/01/17 10:32 Lactic Acid 0.60 mmol/L (0.7-2.0) L 07/02/17 10:00 Calcium 9.4 mg/dL (8.4-10.2) 07/08/17 05:42 Phosphorus 1.80 mg/dL (2.5-4.5) L 07/02/17 17:59 Magnesium 1.90 mg/dL (1.7-2.3) 07/03/17 06:00 Total Bilirubin 0.30 mg/dL (0.1-1.2) 07/05/17 05:41 Direct Bilirubin < 0.2 mg/dL (0-0.2) 07/02/17 17:59 Indirect Bilirubin 0.1 mg/dL 07/02/17 17:59 AST 45 units/L (5-40) H 07/05/17 05:41 ALT 42 units/L (7-56) 07/05/17 05:41 Alkaline Phosphatase 82 units/L (35-129) 07/05/17 05:41 Ammonia 43.0 umol/L (25-60) 07/02/17 17:59 Total Creatine Kinase 1279 units/L (30-135) H 07/04/17 09:09 CK-MB (CK-2) 8.4 ng/mL (0.0-4.0) H 07/01/17 10:32 CK-MB (CK-2) Rel Index 0.9 (0-4) 07/01/17 10:32 Total Protein 6.4 g/dL (6.3-8.2) 07/05/17 05:41 Albumin 3.8 g/dL (3.9-5) L 07/05/17 05:41 Albumin/Globulin Ratio 1.5 % 07/05/17 05:41 Lipase 15 units/L (13-60) 07/02/17 17:59 Urine Color Red (Yellow) 07/01/17 09:49 Urine Turbidity Clear (Clear) 07/01/17 09:49 Urine pH 5.0 (5.0-7.0) 07/01/17 09:49 Ur Specific [place] 1.013 (1.003-1.030) 07/01/17 09:49 Urine Protein 30 mg/dl mg/dL (Negative) 07/01/17 09:49 Urine Glucose (UA) 150 mg/dL (Negative) 07/01/17 09:49 Urine Ketones Neg mg/dL (Negative) 07/01/17 09:49 Urine Blood Lg (Negative) 07/01/17 09:49 Urine Nitrite Neg (Negative) 07/01/17 09:49 Urine Bilirubin Neg (Negative) 07/01/17 09:49 Urine Urobilinogen < 2.0 mg/dL (<2.0) 07/01/17 09:49 Ur Leukocyte Esterase Neg (Negative) 07/01/17 09:49 Urine WBC (Auto) 1.0 /HPF (0.0-6.0) 07/01/17 09:49 Urine RBC (Auto) 1.0 /HPF (0.0-6.0) 07/01/17 09:49 U Epithel Cells (Auto) 1.0 /HPF (0-13.0) 07/01/17 09:49 Urine Mucus Few /HPF 07/01/17 09:49 Urine HCG, Qual Negative (Negative) 07/01/17 09:49 Salicylates < 0.3 mg/dL (2.8-20.0) L 07/01/17 08:30 Urine Opiates Screen Presumptive negative 07/01/17 09:49 Urine Methadone Screen Presumptive negative 07/01/17 09:49 Acetaminophen < 15.0 ug/mL (10.0-30.0) 07/01/17 08:30 Ur Barbiturates Screen Presumptive negative 07/01/17 09:49 Ur Phencyclidine Scrn Presumptive negative 07/01/17 09:49 Ur Amphetamines Screen Presumptive negative 07/01/17 09:49 U Benzodiazepines Scrn Presumptive positive 07/01/17 09:49 Urine Cocaine Screen Presumptive negative 07/01/17 09:49 U Marijuana (THC) Screen Presumptive positive 07/01/17 09:49 Drugs of Abuse Note Disclamer 07/01/17 09:49 Ethylene Glycol <10.0 mcg/mL (<10.0) 07/01/17 10:32 Plasma/Serum Alcohol < 0.01 gm% (0-0.07) 07/01/17 08:30 Blood Type O POSITIVE 07/01/17 08:35 Antibody Screen Negative 07/01/17 08:35
[2017-07-09] MEDS: LEVAQUIN PO SCH (10:42)
[2017-07-09] MEDS: TRILEPTAL PO SCH ×2 (10:42→22:53)
--- NOTE | 2017-07-09 12:10 | Progress Note ---
Subjective - Reason for Consult Consult date: 07/09/17 Reason for consult: Psychiatry Follow-up - Chief Complaint Chief complaint: "Patient nod to answers" 37 YO Female with Unknown PMH presents to ED for evaluation. Psychiatry consulted because of possible overdose. Today patient is calm, but confused during the assessment. When asked questions, she would nod "yes" or "no" to answers. Per the staff, security had to be called yesterday afternoon because patient was combative. She nodded to "no" when asked if she was SI/HI's. No gestures of AVH's. Mental Status Exam - Vital signs Last Vital Signs Temp 98.6 F 07/09/17 08:34 Pulse 101 H 07/09/17 08:34 Resp 20 07/09/17 08:34 BP 109/71 07/09/17 08:34 Pulse Ox 100 07/09/17 08:34 - Exam Narrative exam: MSE: Appearance: calm Behavior: regular eye contact Speech: low rate and tone Mood: lethargic Affect: congruent to mood Thought Process: unable to assess Thought Content: denies SI/HI's and no gestures of AVH's Motor Activity: lying in the bed Cognition: A/O x2 Insight: unable to assess Judgment: unable to assess Assessment and Plan Impression: Today patient is calm, but confused during the assessment. Patient in restraints. Positive for marijuana/benzos. Medical: Acute Toxic Encephalopathy Recommendation/Plan: Neuro is following patient at this time. Gather more collateral from Zina Jones [place], [place] at [phone]. Delirium precautions below: 1. Frequently reorient patient and involve him/her in their care (simple explanations of procedures, tests, medications). 2. Lights on and shades open during daytime hours. 3. Try to avoid unnecessary interruptions to sleep during nighttime hours. 4. Obtain glasses, hearing aids from home if patient uses these at baseline. 5. Avoid medications that may exacerbate delirium (especially narcotics, barbiturates, ambien, lunesta, benzos, and medications with excessive anticholinergic properties).
--- NOTE | 2017-07-09 12:39 | Progress Note ---
Subjective Date of service: 07/09/17 Principal diagnosis: seizures Interval history: NEUROLOGY CONSULATATION NOTE: Patient is still very encephalopahtic today. she is not oriented in any sphere. Says year is "2014" cannot name President, cannot name the type of place she is in (hospital). She is cooperative and tries to follow commands, but holds up three fingers instead of two on command, will not raise her right arm on command until I tell her to put down her left arm, for example. She rubs her eyes continually with eyes closed. She reports that they bother her. With eyes open EOM are full without nystagmus, pupils 4 mm bilat. Remainder of neuro exam without change. No seizures reported. DX IMP: 1. Encephalopahty persists and is concerning. ? occult Sz, ? effect of combined meds (Zonisamide, Dilantin, Trileptal, klonopin. OF NOTE: All of her parents (mother, father, step mother) say "why is she not talking for the past several weeks?"....ie before she came here. Both father and step mother said independently "something bad must have happened to her" ............? Plan: 1. Repeat EEG to rule out occult Sz 2. contact her Neurologist in [place] 3. more hx from parents re "not talking" 4. Go from there. Noemi Neil MD Objective - Vital Sign Vital Signs - 12hr 07/09/17 08:34 Temperature 98.6 F Pulse Rate 101 H Respiratory 20 Rate Blood Pressure 109/71 O2 Sat by Pulse 100 Oximetry - Laboratory Findings CBC and BMP: 07/06/17 05:27 07/08/17 05:42 Abnormal Lab Findings: Abnormal Labs 07/01/17 07/01/17 07/01/17 08:28 08:30 08:30 WBC 18.0 H RBC MCV 108 H MCH 34 H MCHC RDW Lymph % (Auto) 10.9 L [place] % (Auto) Seg Neutrophils % 86.2 H Monocytes % (Manual) Seg Neutrophils # 15.5 H Seg Neutrophils # Man Monocytes # (Manual) POC ABG pH POC ABG pO2 Sodium Potassium Chloride Carbon Dioxide 12 L BUN Creatinine Glucose 267 H POC Glucose 213 H Lactic Acid Calcium 8.3 L Phosphorus AST Total Creatine Kinase CK-MB (CK-2) Total Protein Albumin Salicylates 07/01/17 07/01/17 07/01/17 08:30 09:55 10:32 WBC RBC MCV MCH MCHC RDW Lymph % (Auto) [place] % (Auto) Seg Neutrophils % Monocytes % (Manual) Seg Neutrophils # Seg Neutrophils # Man Monocytes # (Manual) POC ABG pH 7.281 L POC ABG pO2 180 H Sodium Potassium Chloride 107.9 H Carbon Dioxide 18 L BUN Creatinine 0.6 L Glucose 135 H POC Glucose Lactic Acid Calcium 7.8 L Phosphorus AST Total Creatine Kinase 851 H CK-MB (CK-2) 8.4 H Total Protein Albumin Salicylates < 0.3 L 07/01/17 07/01/17 07/02/17 10:49 12:45 08:41 WBC RBC MCV MCH MCHC RDW Lymph % (Auto) [place] % (Auto) Seg Neutrophils % Monocytes % (Manual) Seg Neutrophils # Seg Neutrophils # Man Monocytes # (Manual) POC ABG pH POC ABG pO2 Sodium Potassium Chloride Carbon Dioxide BUN Creatinine Glucose POC Glucose 117 H Lactic Acid 4.20 H* 2.20 H* Calcium Phosphorus AST Total Creatine Kinase CK-MB (CK-2) Total Protein Albumin Salicylates 07/02/17 07/02/17 07/03/17 10:00 17:59 06:00 WBC 21.1 H RBC MCV 104 H MCH 35 H MCHC RDW Lymph % (Auto) [place] % (Auto) Seg Neutrophils % Monocytes % (Manual) 8.0 H Seg Neutrophils # Seg Neutrophils # Man 9.7 H Monocytes # (Manual) 1.7 H POC ABG pH POC ABG pO2 Sodium Potassium Chloride Carbon Dioxide BUN Creatinine Glucose POC Glucose Lactic Acid 0.60 L Calcium Phosphorus 1.80 L AST 51 H Total Creatine Kinase CK-MB (CK-2) Total Protein 5.4 L Albumin 3.6 L Salicylates 07/03/17 07/04/17 07/04/17 06:00 09:09 09:09 WBC 13.0 H RBC MCV 101 H MCH 34 H MCHC RDW Lymph % (Auto) 9.0 L [place] % (Auto) Seg Neutrophils % 84.2 H Monocytes % (Manual) Seg Neutrophils # 10.9 H Seg Neutrophils # Man Monocytes # (Manual) POC ABG pH POC ABG pO2 Sodium 146 H Potassium Chloride 110.0 H Carbon Dioxide 13 L 16 L BUN 5 L 5 L Creatinine 0.6 L 0.5 L Glucose 101 H POC Glucose Lactic Acid Calcium Phosphorus AST Total Creatine Kinase CK-MB (CK-2) Total Protein Albumin Salicylates 07/04/17 07/05/17 07/05/17 09:09 05:41 05:41 WBC 12.2 H RBC MCV 100 H MCH 33 H MCHC RDW Lymph % (Auto) 12.3 L [place] % (Auto) Seg Neutrophils % 79.7 H Monocytes % (Manual) Seg Neutrophils # 9.7 H Seg Neutrophils # Man Monocytes # (Manual) POC ABG pH POC ABG pO2 Sodium Potassium 3.3 L Chloride Carbon Dioxide 20 L BUN 6 L Creatinine 0.4 L Glucose 112 H POC Glucose Lactic Acid Calcium Phosphorus AST 45 H Total Creatine Kinase 1279 H CK-MB (CK-2) Total Protein Albumin 3.8 L Salicylates 07/06/17 07/06/17 07/06/17 05:27 05:27 14:39 WBC RBC 3.43 L MCV 98 H MCH 35 H MCHC 36 H RDW 13.1 L Lymph % (Auto) [place] % (Auto) 8.6 H Seg Neutrophils % Monocytes % (Manual) Seg Neutrophils # Seg Neutrophils # Man Monocytes # (Manual) POC ABG pH POC ABG pO2 Sodium Potassium 2.9 L* Chloride Carbon Dioxide BUN 3 L 3 L Creatinine 0.4 L 0.4 L Glucose 129 H 134 H POC Glucose Lactic Acid Calcium Phosphorus AST Total Creatine Kinase CK-MB (CK-2) Total Protein Albumin Salicylates 07/07/17 07/08/17 04:42 05:42 WBC RBC MCV MCH MCHC RDW Lymph % (Auto) [place] % (Auto) Seg Neutrophils % Monocytes % (Manual) Seg Neutrophils # Seg Neutrophils # Man Monocytes # (Manual) POC ABG pH POC ABG pO2 Sodium Potassium 3.2 L Chloride Carbon Dioxide BUN 4 L Creatinine 0.5 L 0.5 L Glucose 139 H POC Glucose Lactic Acid Calcium 8.3 L Phosphorus AST Total Creatine Kinase CK-MB (CK-2) Total Protein Albumin Salicylates
[2017-07-09 14:04] LABS: Alanine Aminotransferase 26 units/L (7-56); Albumin 3.8 g/dL (3.9-5); Albumin/Globulin Ratio 1.9 %; Alkaline Phosphatase 90 units/L (35-129); Anion Gap 16 mmol/L; BUN/Creatinine Ratio 24; Blood Urea Nitrogen 12 mg/dL (7-17); Calcium 8.9 mg/dL (8.4-10.2); Carbon Dioxide 25 mmol/L (22-30); Chloride 102.4 mmol/L (98-107); Glucose 85 mg/dL (65-100); Potassium 4.6 mmol/L (3.6-5.0); Sodium 139 mmol/L (137-145); Total Protein 5.8 g/dL (6.3-8.2)
[2017-07-09] MEDS: DILANTIN PO SCH ×3 (17:36→17:42)
[2017-07-09] MEDS: LOVENOX SUB-Q SCH (22:53)
[2017-07-10] MEDS: DILANTIN PO SCH ×3 (00:51→17:46)
--- NOTE | 2017-07-10 11:13 | Progress Note ---
Subjective Date of service: 07/10/17 Principal diagnosis: seizures Interval history: NEUROLOLGY PROGRESS NOTE: Clinically pateint is much the same as yesterday, now 6 days following her admission on 07/01. She is still lethargic, confused, speech is sparse, somewhat slurred, she cannot follow commands well at all. No change in the rest of her exam. LAB - no sig abn in her comprehensive metabolic panel to account for her encephalopathy EEG this am just show persistent theta slowing, waxing and waning, with no differentiated states of arousal, no focal abn, and no epileptiform activity. I spoke with her father this am in [facility] and clarified the "why did she stop talking" statement he made earlier. What he meant was that she stopped calling on the phone once or twice a week, as she had lost her cell phone and did not try to use another phone, (not that she was aphasic or dysarthric). I spoke with her neurologist Dr Edmond Quevedo in [facility] ([phone]) this am as well. He stated that extensive EEG monitoring had been done which showed bifrontal seizure discharges, without laterality, correlating with her high pitched brief vocalizations with bilateral arm flexion that occurred 4 - 6 times an hour. She had been on Dilantin 100 mg TID, Trileptal 600 mg BID, and Klonopin 1mg TID (x decades), as well as THC which she felt helped her seizures. To this regiment he added low dose Zonisamide 100 mg, planning to ramp it up slowly every two weeks...but she was lost to follow up. I spoke with her mother, Kat Leigh in [place], [place] ([phone]) yesterday who relayed that the patient had been without any meds for four days, Nov 3,4,5,and 6 and that her ex-boyfriend had overnighted new prescription bottles from [facility] to her in [place] which she presumably took on 06/29 again, helping to explain why she seized on the [employer] bus or in the terminal on 07/01 when she was brought to this hospital. DX IMP: 1. Seizure disorder since age 3, with bifrontal spiking discharges without laterality by EEG monitoring correlating with high pitched vocalizations and bilateral arm flexion, with positive family hx of Sz (great mat grandmother + cousins)...see above re discussion with her Neurologist in [facility]. 2. Persistent encephalopathy/post ictal state likely secondary to sedating drugs + post ictal state + some other [employer] insult (?anoxic injury, ? use of street drug eg "flakka"), ?withdrawal from THC?. MRI brain NL. 3. Learning disability with special ed in childhood 4. Psycho-social chaotic itinerant life style (as described in prior notes and as pieced together over several days via multiple phone calls) 5. Hx diagnosis of depression. 6. Homeless state, without parental financial or housing resources. RECC: 1. As discussed with Dr Castellanos and with Psychiatry, we need to transfer patient today to a facility with 24 hour EEG monitoring capability to decrease her sedating meds carefully while observing for reoccurance of Sz. 2. Go from there. Noemi Neil MD Objective - Vital Sign Vital Signs - 12hr 07/10/17 07/10/17 07/10/17 00:47 05:04 07:44 Temperature 97.4 F L 98.1 F 98.3 F Pulse Rate 99 H 108 H 87 Respiratory 18 18 20 Rate Blood Pressure 106/62 105/77 100/65 O2 Sat by Pulse 95 95 98 Oximetry - Laboratory Findings CBC and BMP: 07/06/17 05:27 07/09/17 12:28 Abnormal Lab Findings: Abnormal Labs 07/01/17 07/01/17 07/01/17 08:28 08:30 08:30 WBC 18.0 H RBC MCV 108 H MCH 34 H MCHC RDW Lymph % (Auto) 10.9 L [place] % (Auto) Seg Neutrophils % 86.2 H Monocytes % (Manual) Seg Neutrophils # 15.5 H Seg Neutrophils # Man Monocytes # (Manual) POC ABG pH POC ABG pO2 Sodium Potassium Chloride Carbon Dioxide 12 L BUN Creatinine Glucose 267 H POC Glucose 213 H Lactic Acid Calcium 8.3 L Phosphorus AST Total Creatine Kinase CK-MB (CK-2) Total Protein Albumin Salicylates Phenytoin 07/01/17 07/01/17 07/01/17 08:30 09:55 10:32 WBC RBC MCV MCH MCHC RDW Lymph % (Auto) [place] % (Auto) Seg Neutrophils % Monocytes % (Manual) Seg Neutrophils # Seg Neutrophils # Man Monocytes # (Manual) POC ABG pH 7.281 L POC ABG pO2 180 H Sodium Potassium Chloride 107.9 H Carbon Dioxide 18 L BUN Creatinine 0.6 L Glucose 135 H POC Glucose Lactic Acid Calcium 7.8 L Phosphorus AST Total Creatine Kinase 851 H CK-MB (CK-2) 8.4 H Total Protein Albumin Salicylates < 0.3 L Phenytoin 07/01/17 07/01/17 07/02/17 10:49 12:45 08:41 WBC RBC MCV MCH MCHC RDW Lymph % (Auto) [place] % (Auto) Seg Neutrophils % Monocytes % (Manual) Seg Neutrophils # Seg Neutrophils # Man Monocytes # (Manual) POC ABG pH POC ABG pO2 Sodium Potassium Chloride Carbon Dioxide BUN Creatinine Glucose POC Glucose 117 H Lactic Acid 4.20 H* 2.20 H* Calcium Phosphorus AST Total Creatine Kinase CK-MB (CK-2) Total Protein Albumin Salicylates Phenytoin 07/02/17 07/02/17 07/03/17 10:00 17:59 06:00 WBC 21.1 H RBC MCV 104 H MCH 35 H MCHC RDW Lymph % (Auto) [place] % (Auto) Seg Neutrophils % Monocytes % (Manual) 8.0 H Seg Neutrophils # Seg Neutrophils # Man 9.7 H Monocytes # (Manual) 1.7 H POC ABG pH POC ABG pO2 Sodium Potassium Chloride Carbon Dioxide BUN Creatinine Glucose POC Glucose Lactic Acid 0.60 L Calcium Phosphorus 1.80 L AST 51 H Total Creatine Kinase CK-MB (CK-2) Total Protein 5.4 L Albumin 3.6 L Salicylates Phenytoin 07/03/17 07/04/17 07/04/17 06:00 09:09 09:09 WBC 13.0 H RBC MCV 101 H MCH 34 H MCHC RDW Lymph % (Auto) 9.0 L [place] % (Auto) Seg Neutrophils % 84.2 H Monocytes % (Manual) Seg Neutrophils # 10.9 H Seg Neutrophils # Man Monocytes # (Manual) POC ABG pH POC ABG pO2 Sodium 146 H Potassium Chloride 110.0 H Carbon Dioxide 13 L 16 L BUN 5 L 5 L Creatinine 0.6 L 0.5 L Glucose 101 H POC Glucose Lactic Acid Calcium Phosphorus AST Total Creatine Kinase CK-MB (CK-2) Total Protein Albumin Salicylates Phenytoin 07/04/17 07/05/17 07/05/17 09:09 05:41 05:41 WBC 12.2 H RBC MCV 100 H MCH 33 H MCHC RDW Lymph % (Auto) 12.3 L [place] % (Auto) Seg Neutrophils % 79.7 H Monocytes % (Manual) Seg Neutrophils # 9.7 H Seg Neutrophils # Man Monocytes # (Manual) POC ABG pH POC ABG pO2 Sodium Potassium 3.3 L Chloride Carbon Dioxide 20 L BUN 6 L Creatinine 0.4 L Glucose 112 H POC Glucose Lactic Acid Calcium Phosphorus AST 45 H Total Creatine Kinase 1279 H CK-MB (CK-2) Total Protein Albumin 3.8 L Salicylates Phenytoin 07/06/17 07/06/17 07/06/17 05:27 05:27 14:39 WBC RBC 3.43 L MCV 98 H MCH 35 H MCHC 36 H RDW 13.1 L Lymph % (Auto) [place] % (Auto) 8.6 H Seg Neutrophils % Monocytes % (Manual) Seg Neutrophils # Seg Neutrophils # Man Monocytes # (Manual) POC ABG pH POC ABG pO2 Sodium Potassium 2.9 L* Chloride Carbon Dioxide BUN 3 L 3 L Creatinine 0.4 L 0.4 L Glucose 129 H 134 H POC Glucose Lactic Acid Calcium Phosphorus AST Total Creatine Kinase CK-MB (CK-2) Total Protein Albumin Salicylates Phenytoin 07/07/17 07/08/17 07/09/17 04:42 05:42 12:28 WBC RBC MCV MCH MCHC RDW Lymph % (Auto) [place] % (Auto) Seg Neutrophils % Monocytes % (Manual) Seg Neutrophils # Seg Neutrophils # Man Monocytes # (Manual) POC ABG pH POC ABG pO2 Sodium Potassium 3.2 L Chloride Carbon Dioxide BUN 4 L Creatinine 0.5 L 0.5 L Glucose 139 H POC Glucose Lactic Acid Calcium 8.3 L Phosphorus AST Total Creatine Kinase CK-MB (CK-2) Total Protein Albumin Salicylates Phenytoin 9.9 L 07/09/17 12:28 WBC RBC MCV MCH MCHC RDW Lymph % (Auto) [place] % (Auto) Seg Neutrophils % Monocytes % (Manual) Seg Neutrophils # Seg Neutrophils # Man Monocytes # (Manual) POC ABG pH POC ABG pO2 Sodium Potassium Chloride Carbon Dioxide BUN Creatinine 0.5 L Glucose POC Glucose Lactic Acid Calcium Phosphorus AST Total Creatine Kinase CK-MB (CK-2) Total Protein 5.8 L Albumin 3.8 L Salicylates Phenytoin
--- NOTE | 2017-07-10 13:45 | Progress Note ---
Subjective - Reason for Consult Consult date: 07/10/17 Reason for consult: Psychiatry Follow-up - Chief Complaint Chief complaint: "Hello" 37 YO Female with Unknown PMH presents to ED for evaluation. Psychiatry consulted because of possible overdose. Today patient is calm, but still confused during the assessment. When asked questions, she continue to nod "yes" or "no" as answers. Per the staff, no behavioral disturbance overnight. No gestures to SI/HI's. Per collateral information from her mother Zina Jones who resides in [place], [place], she stated that she witnessed the patient having bizarre behavior (pacing and not sleeping) when she isn't taking her seizure medications. 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 She stated that the patient told her she smoke marijuana to help with her anxiety and epilepsy. The patient' s mom denies any mental health issues other than anxiety for the patient. She denies any past SI's and suicide attempts. Mental Status Exam - Vital signs Last Vital Signs Temp 98.3 F 07/10/17 07:44 Pulse 87 07/10/17 07:44 Resp 20 07/10/17 07:44 BP 100/65 07/10/17 07:44 Pulse Ox 98 07/10/17 07:44 - Exam Narrative exam: MSE: Appearance: calm Behavior: regular eye contact Speech: low rate and tone Mood: lethargic Affect: congruent to mood Thought Process: unable to assess Thought Content: denies SI/HI's and AVH's Motor Activity: lying in the bed Cognition: A/O x2 Insight: unable to assess Judgment: unable to assess Assessment and Plan Impression: Today patient is calm, but confused during the assessment. Positive for marijuana/benzos. After gathering collateral, the patient have not been compliant with her seizure medications over a period of time. Medical: Acute Toxic Encephalopathy Recommendation/Plan: Per Neuro, the patient need to be transferred to a facility with 24 hour EEG monitoring. Will continue to follow patient to establish a baseline. 1. Frequently reorient patient and involve him/her in their care (simple explanations of procedures, tests, medications). 2. Lights on and shades open during daytime hours. 3. Try to avoid unnecessary interruptions to sleep during nighttime hours. 4. Obtain glasses, hearing aids from home if patient uses these at baseline. 5. Avoid medications that may exacerbate delirium (especially narcotics, barbiturates, ambien, lunesta, benzos, and medications with excessive anticholinergic properties).
--- NOTE | 2017-07-10 16:53 | Progress Note ---
Assessment and Plan Assessment and plan: 37 YO Female with hx of seizure disorder, although unknown at the time of admission Pt was observed having seizure activity on a [employer] bus station. EMS notified, and upon arrival the patient was found to have active seizure activity as well as serum glucose of around 200. On exam the patient was lethargic, and hypoxic. EMS described activity as a generalized tonic clonic seizure. Pt was given Ativan, and versed for recurrent seizure activity. Pt developed respiratory distress suspected due to aspiration of gastric contents. EMS placed a nasal trumpet and actually used an adapter to bag the patient through the nasal trumpet. EMS state that the suspect patient took "Flakka". Pt seen and evaluated in ED and found to be in respiratory distress and is unable to protect her airway. Pt intubated and placed on vent support and admitted to ICU. No reports of fever, chills, CP, Palpitations, NVD, Syncope, Trauma, BRBPR, or known recent ill contacts. She was subsequently extubated and trasfered to the Telemetry floor. Informtion from Psych documents Per collateral from Justin Bay at [phone], he stated that the patient left the [facility] via [employer] last week. He stated that her family has been trying to contact her since her departure. He stated that the patient has a hx of seizure, but could not say if she has a mental health hx or dx. I informed Mr Bay to have the patients's family contact the medical and psychiatry team [facility]. He was given direct numbers to both teams. No gestures of SI/HI's by the patient. Per Collateral information from her stepmother Austin Aranda at [phone], the patient has epilepsy. She stated that she cannot take Keppra, because she will become lethargic, combative, and nonverbal. She stated to her knowledge, her daughter has never attempted suicide. She stated that her daughter's neurologist prescribed Klonipine for anxiety. She also stated that her daughter has a hx of substance abuse (marijuana). Toxic Metabolic Encephalopathy * Day 6 With no improvement and no other clinical evidence to explain. * D.W Neurology, call placed to [facility] for 24 hour EEG monitoring while descalating medications * Possible secondary to substance abuse initially thought to have taken Flakka but appears to be only THC with repeated seizure * Patient denies use of any medication such as flakka, but states she smokes pot. * For now avoid Keppra * Discussed with staff, we can fix that collectively * Neurology consult noted, extensive history from, family * UDS is positive for benzo and marijuana * discontinued lamictal and haldol, also taper down clonidine * Mental health consult appreciated * Reviewed with Neurology, too many social issues associated will request case management help for safe discharge planning * Restarted on restriants due to safety for patient and staff Hypotension: * Give a bolus of IV fluid Seziure With Post ictal state * Continue Dilantin, PRN ATIVAN * Neurology following. Per Neurology EEG this am just show persistent theta slowing, waxing and waning, with no differentiated states of arousal, no focal abn, and no epileptiform activity..... father this am in [facility] and clarified the "why did she stop talking" statement he made earlier. What he meant was that she stopped calling on the phone once or twice a week, as she had lost her cell phone and did not try to use another phone, (not that she was aphasic or dysarthric). * I spoke with her neurologist Dr Edmond Quevedo in [facility] ([phone]) this am as well. He stated that extensive EEG monitoring had been done which showed bifrontal seizure discharges, without laterality, correlating with her high pitched brief vocalizations with bilateral arm flexion that occurred 4 - 6 times an hour. She had been on Dilantin 100 mg TID, Trileptal 600 mg BID, and Klonopin 1mg TID (x decades), as well as THC which she felt helped her seizures. To this regiment he added low dose Zonisamide 100 mg, planning to ramp it up slowly every two weeks...but she was lost to follow up. * I spoke with her mother, Kat Leigh in [place], [place] ([phone]) yesterday who relayed that the patient had been without any meds for four days, Nov ,,5, and and that her ex-boyfriend had overnighted new prescription bottles from [facility] to her in [place] which she presumably took on 06/29 again, helping to explain why she seized on the [employer] bus or in the terminal on 07/01 when she was brought to this hospital. Acute hypoxic respiratory failure * S/P Mechanical ventilation <96hrs * Breathing treatments, nebs * Patient is able to take care of her airways Sepsis secondary to Aspiration pneumonitis * Continue on PO levaquin Hypokalemia * repleted, DVT prophylaxis - On Lovenox Disposition - Continue inpatient care - No family at bedside to discuss -D/w Neurology extensively as he had discussed with family -DISCHARGE WHEN Clinically STABLE History Interval history: Patient seen and examined no acute distress. But still with delirious presentation Hospitalist Physical - Physical exam Narrative exam: VITAL SIGNS: Reviewed. GENERAL: The patient appeared well nourished and normally developed. Lethargic. Vital signs as documented. HEAD: No signs of head trauma. EYES: Pupils are equal. Extraocular motions intact. EARS: Hearing grossly intact. MOUTH: Oropharynx is normal. NECK: No adenopathy, no JVD. CHEST: Chest with clear breath sounds bilaterally. No wheezes, rales, or rhonchi. CARDIAC: Regular rate and rhythm. S1 and S2, without murmurs, gallops, or rubs. VASCULAR: No Edema. Peripheral pulses normal and equal in all extremities. ABDOMEN: Soft, without detectable tenderness. No sign of distention. No rebound or guarding, and no masses palpated. Bowel Sounds normal. MUSCULOSKELETAL: Good range of motion of all major joints. Extremities without clubbing, cyanosis or edema. NEUROLOGIC EXAM: Awake oriented to person and place but with intermittent confusion Speech is slow, delirium but Follows some commands. PSYCHIATRIC: Mood depressed SKIN: Abrasion right upper extremity. Nontender and no associated warmth - Constitutional Vitals: Temp Pulse Resp BP Pulse Ox 98.3 F 87 20 100/65 98 07/10/17 07:44 07/10/17 07:44 07/10/17 07:44 07/10/17 07:44 07/10/17 07:44 Results - Labs CBC & Chem 7: 07/06/17 05:27 07/09/17 12:28 Labs: Laboratory Last Values WBC 9.3 K/mm3 (4.5-11.0) 07/06/17 05:27 RBC 3.43 M/mm3 (3.65-5.03) L 07/06/17 05:27 Hgb 11.9 gm/dl (10.1-14.3) 07/06/17 05:27 Hct 33.6 % (30.3-42.9) D 07/06/17 05:27 MCV 98 fl (79-97) H 07/06/17 05:27 MCH 35 pg (28-32) H 07/06/17 05:27 MCHC 36 % (30-34) H 07/06/17 05:27 RDW 13.1 % (13.2-15.2) L 07/06/17 05:27 Plt Count 255 K/mm3 (140-440) 07/06/17 05:27 Lymph % (Auto) 20.5 % (13.4-35.0) 07/06/17 05:27 Mckinley % (Auto) 8.6 % (0.0-7.3) H 07/06/17 05:27 Eos % (Auto) 0.6 % (0.0-4.3) 07/06/17 05:27 Baso % (Auto) 0.8 % (0.0-1.8) 07/06/17 05:27 Lymph # 1.9 K/mm3 (1.2-5.4) 07/06/17 05:27 Mckinley # 0.8 K/mm3 (0.0-0.8) 07/06/17 05:27 Eos # 0.1 K/mm3 (0.0-0.4) 07/06/17 05:27 Baso # 0.1 K/mm3 (0.0-0.1) 07/06/17 05:27 Add Manual Diff Complete 07/03/17 06:00 Total Counted 100 07/03/17 06:00 Seg Neutrophils % 69.5 % (40.0-70.0) 07/06/17 05:27 Seg Neuts % (Manual) 46.0 % (40.0-70.0) 07/03/17 06:00 Band Neutrophils % 24.0 % 07/03/17 06:00 Lymphocytes % (Manual) 22.0 % (13.4-35.0) 07/03/17 06:00 Reactive Lymphs % (Man) 0 % 07/03/17 06:00 Monocytes % (Manual) 8.0 % (0.0-7.3) H 07/03/17 06:00 Eosinophils % (Manual) 0 % (0.0-4.3) 07/03/17 06:00 Basophils % (Manual) 0 % (0.0-1.8) 07/03/17 06:00 Metamyelocytes % 0 % 07/03/17 06:00 Myelocytes % 0 % 07/03/17 06:00 Promyelocytes % 0 % 07/03/17 06:00 Blast Cells % 0 % 07/03/17 06:00 Nucleated RBC % Not Reportable 07/03/17 06:00 Seg Neutrophils # 6.4 K/mm3 (1.8-7.7) 07/06/17 05:27 Seg Neutrophils # Man 9.7 K/mm3 (1.8-7.7) H 07/03/17 06:00 Band Neutrophils # 5.1 K/mm3 07/03/17 06:00 Lymphocytes # (Manual) 4.6 K/mm3 (1.2-5.4) 07/03/17 06:00 Abs React Lymphs (Man) 0.0 K/mm3 07/03/17 06:00 Monocytes # (Manual) 1.7 K/mm3 (0.0-0.8) H 07/03/17 06:00 Eosinophils # (Manual) 0.0 K/mm3 (0.0-0.4) 07/03/17 06:00 Basophils # (Manual) 0.0 K/mm3 (0.0-0.1) 07/03/17 06:00 Metamyelocytes # 0.0 K/mm3 07/03/17 06:00 Myelocytes # 0.0 K/mm3 07/03/17 06:00 Promyelocytes # 0.0 K/mm3 07/03/17 06:00 Blast Cells # 0.0 K/mm3 07/03/17 06:00 WBC Morphology Not Reportable 07/03/17 06:00 Hypersegmented Neuts Not Reportable 07/03/17 06:00 Hyposegmented Neuts Not Reportable 07/03/17 06:00 Hypogranular Neuts Not Reportable 07/03/17 06:00 Smudge Cells Not Reportable 07/03/17 06:00 Toxic Granulation Not Reportable 07/03/17 06:00 Toxic Vacuolation Not Reportable 07/03/17 06:00 Dohle Bodies Not Reportable 07/03/17 06:00 Pelger-Huet Anomaly Not Reportable 07/03/17 06:00 [place] Rods Not Reportable 07/03/17 06:00 Platelet Estimate Appears normal 07/03/17 06:00 Clumped Platelets Not Reportable 07/03/17 06:00 Plt Clumps, EDTA Not Reportable 07/03/17 06:00 Large Platelets Not Reportable 07/03/17 06:00 Giant Platelets Not Reportable 07/03/17 06:00 Platelet Satelliting Not Reportable 07/03/17 06:00 Plt Morphology Comment Not Reportable 07/03/17 06:00 RBC Morphology Not Reportable 07/03/17 06:00 Dimorphic RBCs Not Reportable 07/03/17 06:00 Polychromasia Not Reportable 07/03/17 06:00 Hypochromasia 1+ 07/03/17 06:00 Poikilocytosis Not Reportable 07/03/17 06:00 Anisocytosis 1+ 07/03/17 06:00 Microcytosis Not Reportable 07/03/17 06:00 Macrocytosis Not Reportable 07/03/17 06:00 Spherocytes Not Reportable 07/03/17 06:00 Pappenheimer Bodies Not Reportable 07/03/17 06:00 Sickle Cells Not Reportable 07/03/17 06:00 Target Cells Not Reportable 07/03/17 06:00 Tear Drop Cells Not Reportable 07/03/17 06:00 Ovalocytes Not Reportable 07/03/17 06:00 Helmet Cells Not Reportable 07/03/17 06:00 [place] Bodies Not Reportable 07/03/17 06:00 [place] Rings Not Reportable 07/03/17 06:00 Kevin Cells Not Reportable 07/03/17 06:00 Bite Cells Not Reportable 07/03/17 06:00 Crenated Cell Not Reportable 07/03/17 06:00 Elliptocytes Not Reportable 07/03/17 06:00 Acanthocytes (Spur) Not Reportable 07/03/17 06:00 Rouleaux Not Reportable 07/03/17 06:00 Hemoglobin C Crystals Not Reportable 07/03/17 06:00 Schistocytes Not Reportable 07/03/17 06:00 Malaria parasites Not Reportable 07/03/17 06:00 [place] Bodies Not Reportable 07/03/17 06:00 Hem Pathologist Commnt No 07/03/17 06:00 POC ABG pH 7.281 (7.35-7.45) L 07/01/17 09:55 POC ABG pCO2 37.8 (35-45) 07/01/17 09:55 POC ABG pO2 180 (80-105) H 07/01/17 09:55 POC ABG HCO3 17.8 07/01/17 09:55 POC ABG Total CO2 19 07/01/17 09:55 POC ABG O2 Sat 99 07/01/17 09:55 POC ABG Base Excess -9 07/01/17 09:55 FiO2 50 % 07/01/17 09:55 Sodium 139 mmol/L (137-145) 07/09/17 12:28 Potassium 4.6 mmol/L (3.6-5.0) 07/09/17 12:28 Chloride 102.4 mmol/L (98-107) 07/09/17 12:28 Carbon Dioxide 25 mmol/L (22-30) 07/09/17 12:28 Anion Gap 16 mmol/L 07/09/17 12:28 BUN 12 mg/dL (7-17) 07/09/17 12:28 Creatinine 0.5 mg/dL (0.7-1.2) L 07/09/17 12:28 Estimated GFR > 60 ml/min 07/09/17 12:28 BUN/Creatinine Ratio 24 % 07/09/17 12:28 Glucose 85 mg/dL (65-100) 07/09/17 12:28 POC Glucose 87 (70-105) 07/04/17 12:00 Ketones Quantitative Negative (Negative) 07/01/17 10:32 Osmolality 301 Mosm/kg 07/01/17 10:32 Lactic Acid 0.60 mmol/L (0.7-2.0) L 07/02/17 10:00 Calcium 8.9 mg/dL (8.4-10.2) 07/09/17 12:28 Phosphorus 1.80 mg/dL (2.5-4.5) L 07/02/17 17:59 Magnesium 1.90 mg/dL (1.7-2.3) 07/03/17 06:00 Total Bilirubin 0.20 mg/dL (0.1-1.2) 07/09/17 12:28 Direct Bilirubin < 0.2 mg/dL (0-0.2) 07/02/17 17:59 Indirect Bilirubin 0.1 mg/dL 07/02/17 17:59 AST 22 units/L (5-40) 07/09/17 12:28 ALT 26 units/L (7-56) 07/09/17 12:28 Alkaline Phosphatase 90 units/L (35-129) 07/09/17 12:28 Ammonia 43.0 umol/L (25-60) 07/02/17 17:59 Total Creatine Kinase 1279 units/L (30-135) H 07/04/17 09:09 CK-MB (CK-2) 8.4 ng/mL (0.0-4.0) H 07/01/17 10:32 CK-MB (CK-2) Rel Index 0.9 (0-4) 07/01/17 10:32 Total Protein 5.8 g/dL (6.3-8.2) L 07/09/17 12:28 Albumin 3.8 g/dL (3.9-5) L 07/09/17 12:28 Albumin/Globulin Ratio 1.9 % 07/09/17 12:28 Lipase 15 units/L (13-60) 07/02/17 17:59 Urine Color Red (Yellow) 07/01/17 09:49 Urine Turbidity Clear (Clear) 07/01/17 09:49 Urine pH 5.0 (5.0-7.0) 07/01/17 09:49 Ur Specific [place] 1.013 (1.003-1.030) 07/01/17 09:49 Urine Protein 30 mg/dl mg/dL (Negative) 07/01/17 09:49 Urine Glucose (UA) 150 mg/dL (Negative) 07/01/17 09:49 Urine Ketones Neg mg/dL (Negative) 07/01/17 09:49 Urine Blood Lg (Negative) 07/01/17 09:49 Urine Nitrite Neg (Negative) 07/01/17 09:49 Urine Bilirubin Neg (Negative) 07/01/17 09:49 Urine Urobilinogen < 2.0 mg/dL (<2.0) 07/01/17 09:49 Ur Leukocyte Esterase Neg (Negative) 07/01/17 09:49 Urine WBC (Auto) 1.0 /HPF (0.0-6.0) 07/01/17 09:49 Urine RBC (Auto) 1.0 /HPF (0.0-6.0) 07/01/17 09:49 U Epithel Cells (Auto) 1.0 /HPF (0-13.0) 07/01/17 09:49 Urine Mucus Few /HPF 07/01/17 09:49 Urine HCG, Qual Negative (Negative) 07/01/17 09:49 Salicylates < 0.3 mg/dL (2.8-20.0) L 07/01/17 08:30 Urine Opiates Screen Presumptive negative 07/01/17 09:49 Urine Methadone Screen Presumptive negative 07/01/17 09:49 Acetaminophen < 15.0 ug/mL (10.0-30.0) 07/01/17 08:30 Ur Barbiturates Screen Presumptive negative 07/01/17 09:49 Phenytoin 9.9 ug/mL (10.0-20.0) L 07/09/17 12:28 Ur Phencyclidine Scrn Presumptive negative 07/01/17 09:49 Ur Amphetamines Screen Presumptive negative 07/01/17 09:49 U Benzodiazepines Scrn Presumptive positive 07/01/17 09:49 Urine Cocaine Screen Presumptive negative 07/01/17 09:49 U Marijuana (THC) Screen Presumptive positive 07/01/17 09:49 Drugs of Abuse Note Disclamer 07/01/17 09:49 Ethylene Glycol <10.0 mcg/mL (<10.0) 07/01/17 10:32 Plasma/Serum Alcohol < 0.01 gm% (0-0.07) 07/01/17 08:30 Blood Type O POSITIVE 07/01/17 08:35 Antibody Screen Negative 07/01/17 08:35
[2017-07-10] MEDS: TRILEPTAL PO SCH (17:45)
[2017-07-10] MEDS: LEVAQUIN PO SCH (17:45)
[2017-07-11] MEDS: DILANTIN PO SCH ×4 (01:43→21:31)
[2017-07-11] MEDS: LOVENOX SUB-Q SCH ×2 (01:44→21:31)
[2017-07-11] MEDS: TRILEPTAL PO SCH ×3 (01:47→21:31)
[2017-07-11] MEDS: ZONEGRAN (NF) PO SCH ×2 (01:47→21:31)
--- NOTE | 2017-07-11 11:45 | Progress Note ---
Assessment and Plan Assessment and plan: 37 YO Female with hx of seizure disorder, although unknown at the time of admission Pt was observed having seizure activity on [place]. EMS notified, and upon arrival the patient was found to have active seizure activity as well as serum glucose of around 200. On exam the patient was lethargic, and hypoxic. EMS described activity as a generalized tonic clonic seizure. Pt was given Ativan, and versed for recurrent seizure activity. Pt developed respiratory distress suspected due to aspiration of gastric contents. EMS placed a nasal trumpet and actually used an adapter to bag the patient through the nasal trumpet. EMS state that the suspect patient took "Flakka". Pt seen and evaluated in ED and found to be in respiratory distress and is unable to protect her airway. Pt intubated and placed on vent support and admitted to ICU. No reports of fever, chills, CP, Palpitations, NVD, Syncope, Trauma, BRBPR, or known recent ill contacts. She was subsequently extubated and trasfered to the Telemetry floor. Informtion from Psych documents Per collateral from Justin Bay at [phone], he stated that the patient left the [facility] via [employer] last week. He stated that her family has been trying to contact her since her departure. He stated that the patient has a hx of seizure, but could not say if she has a mental health hx or dx. I informed Mr Bay to have the patients's family contact the medical and psychiatry team [facility]. He was given direct numbers to both teams. No gestures of SI/HI's by the patient. Per Collateral information from her stepmother Austin Aranda at [phone], the patient has epilepsy. She stated that she cannot take Keppra, because she will become lethargic, combative, and nonverbal. She stated to her knowledge, her daughter has never attempted suicide. She stated that her daughter's neurologist prescribed Klonipine for anxiety. She also stated that her daughter has a hx of substance abuse (marijuana). Toxic Metabolic Encephalopathy * Day 7 Mild improvement confabulating when asked where she will go on discharge , she said to stay with [facility], I asked if [facility] is in [place] (made up) she thought for a minute and said yes and also yes to a few other places. * now off restriants * But had gone 6 days with no improvement and no other clinical evidence to explain. * D.W Neurology, still awaiting to hear from Todd and Kevin for 24 hour EEG monitoring while descalating medications * Possible secondary to substance abuse initially thought to have taken Flakka but appears to be only THC with repeated seizure * Patient denies use of any medication such as flakka, but states she smokes pot. * For now avoid Keppra * Discussed with staff, we can fix that collectively * Neurology consult noted, extensive history from, family * UDS is positive for benzo and marijuana * discontinued lamictal and haldol, also taper down clonidine * Mental health consult appreciated * Reviewed with Neurology, too many social issues associated will request case management help for safe discharge planning * Restarted on restriants due to safety for patient and staff Hypotension: * Give a bolus of IV fluid Seziure With Post ictal state * Continue Dilantin, PRN ATIVAN * Neurology following. Per Neurology EEG this am just show persistent theta slowing, waxing and waning, with no differentiated states of arousal, no focal abn, and no epileptiform activity..... father this am in [facility] and clarified the "why did she stop talking" statement he made earlier. What he meant was that she stopped calling on the phone once or twice a week, as she had lost her cell phone and did not try to use another phone, (not that she was aphasic or dysarthric). * I spoke with her neurologist Dr Edmond Quevedo in [facility] ) this am as well. He stated that extensive EEG monitoring had been done which showed bifrontal seizure discharges, without laterality, correlating with her high pitched brief vocalizations with bilateral arm flexion that occurred 4 - 6 times an hour. She had been on Dilantin 100 mg TID, Trileptal 600 mg BID, and Klonopin 1mg TID (x decades), as well as THC which she felt helped her seizures. To this regiment he added low dose Zonisamide 100 mg, planning to ramp it up slowly every two weeks...but she was lost to follow up. * I spoke with her mother, Kat Leigh in [place], [place] ([phone]) yesterday who relayed that the patient had been without any meds for four days, Nov 3,4,5, and 6 and that her ex-boyfriend had overnighted new prescription bottles from [facility] to her in [place] which she presumably took on 06/29 again, helping to explain why she seized on the [employer] bus or in the terminal on 07/01 when she was brought to this hospital. Acute hypoxic respiratory failure * S/P Mechanical ventilation <96hrs * Breathing treatments, nebs * Patient is able to take care of her airways Sepsis secondary to Aspiration pneumonitis * Continue on PO levaquin, will stopin 2 days as patient is possibly improving Hypokalemia * repleted, DVT prophylaxis - On Lovenox Disposition - Continue inpatient care - No family at bedside to discuss -D/w Neurology extensively as he had discussed with family -DISCHARGE WHEN Clinically STABLE History Interval history: Patient seen and examined no acute distress. confabulating but more awake today Hospitalist Physical - Physical exam Narrative exam: VITAL SIGNS: Reviewed. GENERAL: The patient appeared well nourished and normally developed. Lethargic. Vital signs as documented. HEAD: No signs of head trauma. EYES: Pupils are equal. Extraocular motions intact. EARS: Hearing grossly intact. MOUTH: Oropharynx is normal. NECK: No adenopathy, no JVD. CHEST: Chest with clear breath sounds bilaterally. No wheezes, rales, or rhonchi. CARDIAC: Regular rate and rhythm. S1 and S2, without murmurs, gallops, or rubs. VASCULAR: No Edema. Peripheral pulses normal and equal in all extremities. ABDOMEN: Soft, without detectable tenderness. No sign of distention. No rebound or guarding, and no masses palpated. Bowel Sounds normal. MUSCULOSKELETAL: Good range of motion of all major joints. Extremities without clubbing, cyanosis or edema. NEUROLOGIC EXAM: Awake oriented to person and place but with intermittent confusion Speech is slow, delirium but Follows some commands. PSYCHIATRIC: Mood depressed SKIN: Abrasion right upper extremity. Nontender and no associated warmth - Constitutional Vitals: Temp Pulse Resp BP Pulse Ox 98.3 F 114 H 18 98/58 97 07/11/17 08:05 07/11/17 08:05 07/11/17 08:05 07/11/17 08:05 07/11/17 08:05 General appearance: Present: severe distress Results - Labs CBC & Chem 7: 07/06/17 05:27 07/09/17 12:28 Labs: Laboratory Last Values WBC 9.3 K/mm3 (4.5-11.0) 07/06/17 05:27 RBC 3.43 M/mm3 (3.65-5.03) L 07/06/17 05:27 Hgb 11.9 gm/dl (10.1-14.3) 07/06/17 05:27 Hct 33.6 % (30.3-42.9) D 07/06/17 05:27 MCV 98 fl (79-97) H 07/06/17 05:27 MCH 35 pg (28-32) H 07/06/17 05:27 MCHC 36 % (30-34) H 07/06/17 05:27 RDW 13.1 % (13.2-15.2) L 07/06/17 05:27 Plt Count 255 K/mm3 (140-440) 07/06/17 05:27 Lymph % (Auto) 20.5 % (13.4-35.0) 07/06/17 05:27 Frontier % (Auto) 8.6 % (0.0-7.3) H 07/06/17 05:27 Eos % (Auto) 0.6 % (0.0-4.3) 07/06/17 05:27 Baso % (Auto) 0.8 % (0.0-1.8) 07/06/17 05:27 Lymph # 1.9 K/mm3 (1.2-5.4) 07/06/17 05:27 Frontier # 0.8 K/mm3 (0.0-0.8) 07/06/17 05:27 Eos # 0.1 K/mm3 (0.0-0.4) 07/06/17 05:27 Baso # 0.1 K/mm3 (0.0-0.1) 07/06/17 05:27 Add Manual Diff Complete 07/03/17 06:00 Total Counted 100 07/03/17 06:00 Seg Neutrophils % 69.5 % (40.0-70.0) 07/06/17 05:27 Seg Neuts % (Manual) 46.0 % (40.0-70.0) 07/03/17 06:00 Band Neutrophils % 24.0 % 07/03/17 06:00 Lymphocytes % (Manual) 22.0 % (13.4-35.0) 07/03/17 06:00 Reactive Lymphs % (Man) 0 % 07/03/17 06:00 Monocytes % (Manual) 8.0 % (0.0-7.3) H 07/03/17 06:00 Eosinophils % (Manual) 0 % (0.0-4.3) 07/03/17 06:00 Basophils % (Manual) 0 % (0.0-1.8) 07/03/17 06:00 Metamyelocytes % 0 % 07/03/17 06:00 Myelocytes % 0 % 07/03/17 06:00 Promyelocytes % 0 % 07/03/17 06:00 Blast Cells % 0 % 07/03/17 06:00 Nucleated RBC % Not Reportable 07/03/17 06:00 Seg Neutrophils # 6.4 K/mm3 (1.8-7.7) 07/06/17 05:27 Seg Neutrophils # Man 9.7 K/mm3 (1.8-7.7) H 07/03/17 06:00 Band Neutrophils # 5.1 K/mm3 07/03/17 06:00 Lymphocytes # (Manual) 4.6 K/mm3 (1.2-5.4) 07/03/17 06:00 Abs React Lymphs (Man) 0.0 K/mm3 07/03/17 06:00 Monocytes # (Manual) 1.7 K/mm3 (0.0-0.8) H 07/03/17 06:00 Eosinophils # (Manual) 0.0 K/mm3 (0.0-0.4) 07/03/17 06:00 Basophils # (Manual) 0.0 K/mm3 (0.0-0.1) 07/03/17 06:00 Metamyelocytes # 0.0 K/mm3 07/03/17 06:00 Myelocytes # 0.0 K/mm3 07/03/17 06:00 Promyelocytes # 0.0 K/mm3 07/03/17 06:00 Blast Cells # 0.0 K/mm3 07/03/17 06:00 WBC Morphology Not Reportable 07/03/17 06:00 Hypersegmented Neuts Not Reportable 07/03/17 06:00 Hyposegmented Neuts Not Reportable 07/03/17 06:00 Hypogranular Neuts Not Reportable 07/03/17 06:00 Smudge Cells Not Reportable 07/03/17 06:00 Toxic Granulation Not Reportable 07/03/17 06:00 Toxic Vacuolation Not Reportable 07/03/17 06:00 Dohle Bodies Not Reportable 07/03/17 06:00 Pelger-Huet Anomaly Not Reportable 07/03/17 06:00 [place] Rods Not Reportable 07/03/17 06:00 Platelet Estimate Appears normal 07/03/17 06:00 Clumped Platelets Not Reportable 07/03/17 06:00 Plt Clumps, EDTA Not Reportable 07/03/17 06:00 Large Platelets Not Reportable 07/03/17 06:00 Giant Platelets Not Reportable 07/03/17 06:00 Platelet Satelliting Not Reportable 07/03/17 06:00 Plt Morphology Comment Not Reportable 07/03/17 06:00 RBC Morphology Not Reportable 07/03/17 06:00 Dimorphic RBCs Not Reportable 07/03/17 06:00 Polychromasia Not Reportable 07/03/17 06:00 Hypochromasia 1+ 07/03/17 06:00 Poikilocytosis Not Reportable 07/03/17 06:00 Anisocytosis 1+ 07/03/17 06:00 Microcytosis Not Reportable 07/03/17 06:00 Macrocytosis Not Reportable 07/03/17 06:00 Spherocytes Not Reportable 07/03/17 06:00 Pappenheimer Bodies Not Reportable 07/03/17 06:00 Sickle Cells Not Reportable 07/03/17 06:00 Target Cells Not Reportable 07/03/17 06:00 Tear Drop Cells Not Reportable 07/03/17 06:00 Ovalocytes Not Reportable 07/03/17 06:00 Helmet Cells Not Reportable 07/03/17 06:00 [place] Bodies Not Reportable 07/03/17 06:00 [place] Rings Not Reportable 07/03/17 06:00 [place] Cheer Cells Not Reportable 07/03/17 06:00 Bite Cells Not Reportable 07/03/17 06:00 Crenated Cell Not Reportable 07/03/17 06:00 Elliptocytes Not Reportable 07/03/17 06:00 Acanthocytes (Spur) Not Reportable 07/03/17 06:00 Rouleaux Not Reportable 07/03/17 06:00 Hemoglobin C Crystals Not Reportable 07/03/17 06:00 Schistocytes Not Reportable 07/03/17 06:00 Malaria parasites Not Reportable 07/03/17 06:00 Zenon Bodies Not Reportable 07/03/17 06:00 Hem Pathologist Commnt No 07/03/17 06:00 POC ABG pH 7.281 (7.35-7.45) L 07/01/17 09:55 POC ABG pCO2 37.8 (35-45) 07/01/17 09:55 POC ABG pO2 180 (80-105) H 07/01/17 09:55 POC ABG HCO3 17.8 07/01/17 09:55 POC ABG Total CO2 19 07/01/17 09:55 POC ABG O2 Sat 99 07/01/17 09:55 POC ABG Base Excess -9 07/01/17 09:55 FiO2 50 % 07/01/17 09:55 Sodium 139 mmol/L (137-145) 07/09/17 12:28 Potassium 4.6 mmol/L (3.6-5.0) 07/09/17 12:28 Chloride 102.4 mmol/L (98-107) 07/09/17 12:28 Carbon Dioxide 25 mmol/L (22-30) 07/09/17 12:28 Anion Gap 16 mmol/L 07/09/17 12:28 BUN 12 mg/dL (7-17) 07/09/17 12:28 Creatinine 0.5 mg/dL (0.7-1.2) L 07/09/17 12:28 Estimated GFR > 60 ml/min 07/09/17 12:28 BUN/Creatinine Ratio 24 % 07/09/17 12:28 Glucose 85 mg/dL (65-100) 07/09/17 12:28 POC Glucose 103 (70-105) 07/11/17 06:45 Ketones Quantitative Negative (Negative) 07/01/17 10:32 Osmolality 301 Mosm/kg 07/01/17 10:32 Lactic Acid 0.60 mmol/L (0.7-2.0) L 07/02/17 10:00 Calcium 8.9 mg/dL (8.4-10.2) 07/09/17 12:28 Phosphorus 1.80 mg/dL (2.5-4.5) L 07/02/17 17:59 Magnesium 1.90 mg/dL (1.7-2.3) 07/03/17 06:00 Total Bilirubin 0.20 mg/dL (0.1-1.2) 07/09/17 12:28 Direct Bilirubin < 0.2 mg/dL (0-0.2) 07/02/17 17:59 Indirect Bilirubin 0.1 mg/dL 07/02/17 17:59 AST 22 units/L (5-40) 07/09/17 12:28 ALT 26 units/L (7-56) 07/09/17 12:28 Alkaline Phosphatase 90 units/L (35-129) 07/09/17 12:28 Ammonia 47.0 umol/L (25-60) 07/10/17 17:14 Total Creatine Kinase 1279 units/L (30-135) H 07/04/17 09:09 CK-MB (CK-2) 8.4 ng/mL (0.0-4.0) H 07/01/17 10:32 CK-MB (CK-2) Rel Index 0.9 (0-4) 07/01/17 10:32 Total Protein 5.8 g/dL (6.3-8.2) L 07/09/17 12:28 Albumin 3.8 g/dL (3.9-5) L 07/09/17 12:28 Albumin/Globulin Ratio 1.9 % 07/09/17 12:28 Lipase 15 units/L (13-60) 07/02/17 17:59 Urine Color Red (Yellow) 07/01/17 09:49 Urine Turbidity Clear (Clear) 07/01/17 09:49 Urine pH 5.0 (5.0-7.0) 07/01/17 09:49 Ur Specific [place] 1.013 (1.003-1.030) 07/01/17 09:49 Urine Protein 30 mg/dl mg/dL (Negative) 07/01/17 09:49 Urine Glucose (UA) 150 mg/dL (Negative) 07/01/17 09:49 Urine Ketones Neg mg/dL (Negative) 07/01/17 09:49 Urine Blood Lg (Negative) 07/01/17 09:49 Urine Nitrite Neg (Negative) 07/01/17 09:49 Urine Bilirubin Neg (Negative) 07/01/17 09:49 Urine Urobilinogen < 2.0 mg/dL (<2.0) 07/01/17 09:49 Ur Leukocyte Esterase Neg (Negative) 07/01/17 09:49 Urine WBC (Auto) 1.0 /HPF (0.0-6.0) 07/01/17 09:49 Urine RBC (Auto) 1.0 /HPF (0.0-6.0) 07/01/17 09:49 U Epithel Cells (Auto) 1.0 /HPF (0-13.0) 07/01/17 09:49 Urine Mucus Few /HPF 07/01/17 09:49 Urine HCG, Qual Negative (Negative) 07/01/17 09:49 Salicylates < 0.3 mg/dL (2.8-20.0) L 07/01/17 08:30 Urine Opiates Screen Presumptive negative 07/01/17 09:49 Urine Methadone Screen Presumptive negative 07/01/17 09:49 Acetaminophen < 15.0 ug/mL (10.0-30.0) 07/01/17 08:30 Ur Barbiturates Screen Presumptive negative 07/01/17 09:49 Phenytoin 9.9 ug/mL (10.0-20.0) L 07/09/17 12:28 Ur Phencyclidine Scrn Presumptive negative 07/01/17 09:49 Ur Amphetamines Screen Presumptive negative 07/01/17 09:49 U Benzodiazepines Scrn Presumptive positive 07/01/17 09:49 Urine Cocaine Screen Presumptive negative 07/01/17 09:49 U Marijuana (THC) Screen Presumptive positive 07/01/17 09:49 Drugs of Abuse Note Disclamer 07/01/17 09:49 Ethylene Glycol <10.0 mcg/mL (<10.0) 07/01/17 10:32 Plasma/Serum Alcohol < 0.01 gm% (0-0.07) 07/01/17 08:30 Blood Type O POSITIVE 07/01/17 08:35 Antibody Screen Negative 07/01/17 08:35
[2017-07-11] MEDS: LEVAQUIN PO SCH (18:43)
[2017-07-12] MEDS: DILANTIN PO SCH ×3 (06:51→22:25)
--- NOTE | 2017-07-12 09:50 | Progress Note ---
Subjective - Reason for Consult Consult date: 07/12/17 Reason for consult: Psychiatry Follow-up - Chief Complaint Chief complaint: "Hi" 37 YO Female with Unknown PMH presents to ED for evaluation. Psychiatry consulted because of possible overdose. Today patient is calm, but still confused during the assessment. Upon arriving to her room, patient was eating her breakfast. When she was asked her location she stated being in the hospital and was able to state her name. She would not answer other questions when asked. Per the staff, no behavioral disturbance overnight. No gestures to SI/HI' s. Mental Status Exam - Vital signs Last Vital Signs Temp 98.8 F 07/12/17 07:54 Pulse 76 07/12/17 07:54 Resp 16 07/12/17 07:54 BP 94/65 07/12/17 07:54 Pulse Ox 95 07/12/17 07:54 - Exam Narrative exam: MSE: Appearance: calm Behavior: regular eye contact Speech: regular rate and tone Mood: unable to assess Affect: flat Thought Process: unable to assess Thought Content: no gestures of SI/HI's and AVH's Motor Activity: lying in the bed Cognition: A/O x2 Insight: unable to assess Judgment: unable to assess Assessment and Plan Impression: Today patient is calm, but still confused during the assessment. She was able to state her name and her current location. Positive for marijuana/ benzos. Medical: Acute Toxic Encephalopathy Recommendation/Plan: Per Neuro, the patient need to be transferred to a facility with 24 hour EEG monitoring. Will continue to follow patient to establish a baseline. 1. Frequently reorient patient and involve him/her in their care (simple explanations of procedures, tests, medications). 2. Lights on and shades open during daytime hours. 3. Try to avoid unnecessary interruptions to sleep during nighttime hours. 4. Obtain glasses, hearing aids from home if patient uses these at baseline. 5. Avoid medications that may exacerbate delirium (especially narcotics, barbiturates, ambien, lunesta, benzos, and medications with excessive anticholinergic properties).
[2017-07-12] MEDS: LEVAQUIN PO SCH (10:26)
[2017-07-12] MEDS: TRILEPTAL PO SCH ×2 (10:27→22:26)
--- NOTE | 2017-07-12 12:48 | Progress Note ---
Assessment and Plan Assessment and plan: 37 YO Female with hx of seizure disorder, although unknown at the time of admission Pt was observed having seizure activity on [place] bus station. EMS notified, and upon arrival the patient was found to have active seizure activity as well as serum glucose of around 200. On exam the patient was lethargic, and hypoxic. EMS described activity as a generalized tonic clonic seizure. Pt was given Ativan, and versed for recurrent seizure activity. Pt developed respiratory distress suspected due to aspiration of gastric contents. EMS placed a nasal trumpet and actually used an adapter to bag the patient through the nasal trumpet. EMS state that the suspect patient took "Flakka". Pt seen and evaluated in ED and found to be in respiratory distress and is unable to protect her airway. Pt intubated and placed on vent support and admitted to ICU. No reports of fever, chills, CP, Palpitations, NVD, Syncope, Trauma, BRBPR, or known recent ill contacts. She was subsequently extubated and trasfered to the Telemetry floor. Informtion from Psych documents Per collateral from Justin Bay at [phone], he stated that the patient left the [facility] via [place] last week. He stated that her family has been trying to contact her since her departure. He stated that the patient has a hx of seizure, but could not say if she has a mental health hx or dx. I informed Mr Bay to have the patients's family contact the medical and psychiatry team [facility]. He was given direct numbers to both teams. No gestures of SI/HI's by the patient. Per Collateral information from her stepmother Austin Aranda at [phone], the patient has epilepsy. She stated that she cannot take Keppra, because she will become lethargic, combative, and nonverbal. She stated to her knowledge, her daughter has never attempted suicide. She stated that her daughter's neurologist prescribed Klonipine for anxiety. She also stated that her daughter has a hx of substance abuse (marijuana). Toxic Metabolic Encephalopathy * Day 9 patient with some more improvement. Friend Justin came from [facility] and will be here for two days and states that she is normally more active than this. He also states he has been discussing with the patients mom. * If patient continues to improve she can be discharge home with him if she wants to like she had said before. * [place] still has no bed * now off restriants * But had gone 6 days with no improvement and no other clinical evidence to explain. * [facility] Neurology, still awaiting to hear from Todd and Kevin for 24 hour EEG monitoring while descalating medications * Possible secondary to substance abuse initially thought to have taken Flakka but appears to be only THC with repeated seizure * Patient denies use of any medication such as flakka, but states she smokes pot. * For now avoid Keppra * Discussed with staff, we can fix that collectively * Neurology consult noted, extensive history from, family * UDS is positive for benzo and marijuana * discontinued lamictal and haldol, also taper down clonidine * Mental health consult appreciated * Reviewed with Neurology, too many social issues associated will request case management help for safe discharge planning * Restarted on restriants due to safety for patient and staff Hypotension: * Give a bolus of IV fluid Seziure With Post ictal state * Continue Dilantin, PRN ATIVAN * Neurology following. Per Neurology EEG this am just show persistent theta slowing, waxing and waning, with no differentiated states of arousal, no focal abn, and no epileptiform activity..... father this am in [facility] and clarified the "why did she stop talking" statement he made earlier. What he meant was that she stopped calling on the phone once or twice a week, as she had lost her cell phone and did not try to use another phone, (not that she was aphasic or dysarthric). * I spoke with her neurologist Dr Edmond Quevedo in [facility] ) this am as well. He stated that extensive EEG monitoring had been done which showed bifrontal seizure discharges, without laterality, correlating with her high pitched brief vocalizations with bilateral arm flexion that occurred 4 - 6 times an hour. She had been on Dilantin 100 mg TID, Trileptal 600 mg BID, and Klonopin 1mg TID (x decades), as well as THC which she felt helped her seizures. To this regiment he added low dose Zonisamide 100 mg, planning to ramp it up slowly every two weeks...but she was lost to follow up. * I spoke with her mother, Kat Leigh in [place], [place] ([phone]) yesterday who relayed that the patient had been without any meds for four days, Nov 3,4,, and and that her ex-boyfriend had overnighted new prescription bottles from [facility] to her in [place] which she presumably took on 06/29 again, helping to explain why she seized on the [employer] bus or in the terminal on 07/01 when she was brought to this hospital. Acute hypoxic respiratory failure * S/P Mechanical ventilation <96hrs * Breathing treatments, nebs * Patient is able to take care of her airways Sepsis secondary to Aspiration pneumonitis * Continue on PO levaquin, will stopin 2 days as patient is possibly improving Hypokalemia * repleted, DVT prophylaxis - On Lovenox Disposition - Continue inpatient care - No family at bedside to discuss -D/w Neurology extensively as he had discussed with family -DISCHARGE WHEN Clinically STABLE History Interval history: Patient seen and examined no acute distress. much improved today but not at baseline per friend that was visiting from [place]. patient actually got up from bed, combed hair Hospitalist Physical - Physical exam Narrative exam: VITAL SIGNS: Reviewed. GENERAL: The patient appeared well nourished and normally developed.. Vital signs as documented. HEAD: No signs of head trauma. EYES: Pupils are equal. Extraocular motions intact. EARS: Hearing grossly intact. MOUTH: Oropharynx is normal. NECK: No adenopathy, no JVD. CHEST: Chest with clear breath sounds bilaterally. No wheezes, rales, or rhonchi. CARDIAC: Regular rate and rhythm. S1 and S2, without murmurs, gallops, or rubs. VASCULAR: No Edema. Peripheral pulses normal and equal in all extremities. ABDOMEN: Soft, without detectable tenderness. No sign of distention. No rebound or guarding, and no masses palpated. Bowel Sounds normal. MUSCULOSKELETAL: Good range of motion of all major joints. Extremities without clubbing, cyanosis or edema. NEUROLOGIC EXAM: Awake oriented to person and place Speech is slow, but Follows some commands. PSYCHIATRIC: Mood withdrawn SKIN: Abrasion right upper extremity. Nontender and no associated warmth - Constitutional Vitals: Temp Pulse Resp BP Pulse Ox 98.8 F 76 16 94/65 95 07/12/17 07:54 07/12/17 07:54 07/12/17 07:54 07/12/17 07:54 07/12/17 07:54 General appearance: Present: severe distress Results - Labs CBC & Chem 7: 07/06/17 05:27 07/09/17 12:28 Labs: Laboratory Last Values WBC 9.3 K/mm3 (4.5-11.0) 07/06/17 05:27 RBC 3.43 M/mm3 (3.65-5.03) L 07/06/17 05:27 Hgb 11.9 gm/dl (10.1-14.3) 07/06/17 05:27 Hct 33.6 % (30.3-42.9) D 07/06/17 05:27 MCV 98 fl (79-97) H 07/06/17 05:27 MCH 35 pg (28-32) H 07/06/17 05:27 MCHC 36 % (30-34) H 07/06/17 05:27 RDW 13.1 % (13.2-15.2) L 07/06/17 05:27 Plt Count 255 K/mm3 (140-440) 07/06/17 05:27 Lymph % (Auto) 20.5 % (13.4-35.0) 07/06/17 05:27 [place] % (Auto) 8.6 % (0.0-7.3) H 07/06/17 05:27 Eos % (Auto) 0.6 % (0.0-4.3) 07/06/17 05:27 Baso % (Auto) 0.8 % (0.0-1.8) 07/06/17 05:27 Lymph # 1.9 K/mm3 (1.2-5.4) 07/06/17 05:27 [place] # 0.8 K/mm3 (0.0-0.8) 07/06/17 05:27 Eos # 0.1 K/mm3 (0.0-0.4) 07/06/17 05:27 Baso # 0.1 K/mm3 (0.0-0.1) 07/06/17 05:27 Add Manual Diff Complete 07/03/17 06:00 Total Counted 100 07/03/17 06:00 Seg Neutrophils % 69.5 % (40.0-70.0) 07/06/17 05:27 Seg Neuts % (Manual) 46.0 % (40.0-70.0) 07/03/17 06:00 Band Neutrophils % 24.0 % 07/03/17 06:00 Lymphocytes % (Manual) 22.0 % (13.4-35.0) 07/03/17 06:00 Reactive Lymphs % (Man) 0 % 07/03/17 06:00 Monocytes % (Manual) 8.0 % (0.0-7.3) H 07/03/17 06:00 Eosinophils % (Manual) 0 % (0.0-4.3) 07/03/17 06:00 Basophils % (Manual) 0 % (0.0-1.8) 07/03/17 06:00 Metamyelocytes % 0 % 07/03/17 06:00 Myelocytes % 0 % 07/03/17 06:00 Promyelocytes % 0 % 07/03/17 06:00 Blast Cells % 0 % 07/03/17 06:00 Nucleated RBC % Not Reportable 07/03/17 06:00 Seg Neutrophils # 6.4 K/mm3 (1.8-7.7) 07/06/17 05:27 Seg Neutrophils # Man 9.7 K/mm3 (1.8-7.7) H 07/03/17 06:00 Band Neutrophils # 5.1 K/mm3 07/03/17 06:00 Lymphocytes # (Manual) 4.6 K/mm3 (1.2-5.4) 07/03/17 06:00 Abs React Lymphs (Man) 0.0 K/mm3 07/03/17 06:00 Monocytes # (Manual) 1.7 K/mm3 (0.0-0.8) H 07/03/17 06:00 Eosinophils # (Manual) 0.0 K/mm3 (0.0-0.4) 07/03/17 06:00 Basophils # (Manual) 0.0 K/mm3 (0.0-0.1) 07/03/17 06:00 Metamyelocytes # 0.0 K/mm3 07/03/17 06:00 Myelocytes # 0.0 K/mm3 07/03/17 06:00 Promyelocytes # 0.0 K/mm3 07/03/17 06:00 Blast Cells # 0.0 K/mm3 07/03/17 06:00 WBC Morphology Not Reportable 07/03/17 06:00 Hypersegmented Neuts Not Reportable 07/03/17 06:00 Hyposegmented Neuts Not Reportable 07/03/17 06:00 Hypogranular Neuts Not Reportable 07/03/17 06:00 Smudge Cells Not Reportable 07/03/17 06:00 Toxic Granulation Not Reportable 07/03/17 06:00 Toxic Vacuolation Not Reportable 07/03/17 06:00 Dohle Bodies Not Reportable 07/03/17 06:00 Pelger-Huet Anomaly Not Reportable 07/03/17 06:00 [place] Rods Not Reportable 07/03/17 06:00 Platelet Estimate Appears normal 07/03/17 06:00 Clumped Platelets Not Reportable 07/03/17 06:00 Plt Clumps, EDTA Not Reportable 07/03/17 06:00 Large Platelets Not Reportable 07/03/17 06:00 Giant Platelets Not Reportable 07/03/17 06:00 Platelet Satelliting Not Reportable 07/03/17 06:00 Plt Morphology Comment Not Reportable 07/03/17 06:00 RBC Morphology Not Reportable 07/03/17 06:00 Dimorphic RBCs Not Reportable 07/03/17 06:00 Polychromasia Not Reportable 07/03/17 06:00 Hypochromasia 1+ 07/03/17 06:00 Poikilocytosis Not Reportable 07/03/17 06:00 Anisocytosis 1+ 07/03/17 06:00 Microcytosis Not Reportable 07/03/17 06:00 Macrocytosis Not Reportable 07/03/17 06:00 Spherocytes Not Reportable 07/03/17 06:00 Pappenheimer Bodies Not Reportable 07/03/17 06:00 Sickle Cells Not Reportable 07/03/17 06:00 Target Cells Not Reportable 07/03/17 06:00 Tear Drop Cells Not Reportable 07/03/17 06:00 Ovalocytes Not Reportable 07/03/17 06:00 Helmet Cells Not Reportable 07/03/17 06:00 Gaitan-Mustang Bodies Not Reportable 07/03/17 06:00 [place] Rings Not Reportable 07/03/17 06:00 Kevin Cells Not Reportable 07/03/17 06:00 Bite Cells Not Reportable 07/03/17 06:00 Crenated Cell Not Reportable 07/03/17 06:00 Elliptocytes Not Reportable 07/03/17 06:00 Acanthocytes (Spur) Not Reportable 07/03/17 06:00 Rouleaux Not Reportable 07/03/17 06:00 Hemoglobin C Crystals Not Reportable 07/03/17 06:00 Schistocytes Not Reportable 07/03/17 06:00 Malaria parasites Not Reportable 07/03/17 06:00 Zenon Bodies Not Reportable 07/03/17 06:00 Hem Pathologist Commnt No 07/03/17 06:00 POC ABG pH 7.281 (7.35-7.45) L 07/01/17 09:55 POC ABG pCO2 37.8 (35-45) 07/01/17 09:55 POC ABG pO2 180 (80-105) H 07/01/17 09:55 POC ABG HCO3 17.8 07/01/17 09:55 POC ABG Total CO2 19 07/01/17 09:55 POC ABG O2 Sat 99 07/01/17 09:55 POC ABG Base Excess -9 07/01/17 09:55 FiO2 50 % 07/01/17 09:55 Sodium 139 mmol/L (137-145) 07/09/17 12:28 Potassium 4.6 mmol/L (3.6-5.0) 07/09/17 12:28 Chloride 102.4 mmol/L (98-107) 07/09/17 12:28 Carbon Dioxide 25 mmol/L (22-30) 07/09/17 12:28 Anion Gap 16 mmol/L 07/09/17 12:28 BUN 12 mg/dL (7-17) 07/09/17 12:28 Creatinine 0.5 mg/dL (0.7-1.2) L 07/09/17 12:28 Estimated GFR > 60 ml/min 07/09/17 12:28 BUN/Creatinine Ratio 24 % 07/09/17 12:28 Glucose 85 mg/dL (65-100) 07/09/17 12:28 POC Glucose 73 (70-105) 07/11/17 16:37 Ketones Quantitative Negative (Negative) 07/01/17 10:32 Osmolality 301 Mosm/kg 07/01/17 10:32 Lactic Acid 0.60 mmol/L (0.7-2.0) L 07/02/17 10:00 Calcium 8.9 mg/dL (8.4-10.2) 07/09/17 12:28 Phosphorus 1.80 mg/dL (2.5-4.5) L 07/02/17 17:59 Magnesium 1.90 mg/dL (1.7-2.3) 07/03/17 06:00 Total Bilirubin 0.20 mg/dL (0.1-1.2) 07/09/17 12:28 Direct Bilirubin < 0.2 mg/dL (0-0.2) 07/02/17 17:59 Indirect Bilirubin 0.1 mg/dL 07/02/17 17:59 AST 22 units/L (5-40) 07/09/17 12:28 ALT 26 units/L (7-56) 07/09/17 12:28 Alkaline Phosphatase 90 units/L (35-129) 07/09/17 12:28 Ammonia 47.0 umol/L (25-60) 07/10/17 17:14 Total Creatine Kinase 1279 units/L (30-135) H 07/04/17 09:09 CK-MB (CK-2) 8.4 ng/mL (0.0-4.0) H 07/01/17 10:32 CK-MB (CK-2) Rel Index 0.9 (0-4) 07/01/17 10:32 Total Protein 5.8 g/dL (6.3-8.2) L 07/09/17 12:28 Albumin 3.8 g/dL (3.9-5) L 07/09/17 12:28 Albumin/Globulin Ratio 1.9 % 07/09/17 12:28 Lipase 15 units/L (13-60) 07/02/17 17:59 Urine Color Red (Yellow) 07/01/17 09:49 Urine Turbidity Clear (Clear) 07/01/17 09:49 Urine pH 5.0 (5.0-7.0) 07/01/17 09:49 Ur Specific [place] 1.013 (1.003-1.030) 07/01/17 09:49 Urine Protein 30 mg/dl mg/dL (Negative) 07/01/17 09:49 Urine Glucose (UA) 150 mg/dL (Negative) 07/01/17 09:49 Urine Ketones Neg mg/dL (Negative) 07/01/17 09:49 Urine Blood Lg (Negative) 07/01/17 09:49 Urine Nitrite Neg (Negative) 07/01/17 09:49 Urine Bilirubin Neg (Negative) 07/01/17 09:49 Urine Urobilinogen < 2.0 mg/dL (<2.0) 07/01/17 09:49 Ur Leukocyte Esterase Neg (Negative) 07/01/17 09:49 Urine WBC (Auto) 1.0 /HPF (0.0-6.0) 07/01/17 09:49 Urine RBC (Auto) 1.0 /HPF (0.0-6.0) 07/01/17 09:49 U Epithel Cells (Auto) 1.0 /HPF (0-13.0) 07/01/17 09:49 Urine Mucus Few /HPF 07/01/17 09:49 Urine HCG, Qual Negative (Negative) 07/01/17 09:49 Salicylates < 0.3 mg/dL (2.8-20.0) L 07/01/17 08:30 Urine Opiates Screen Presumptive negative 07/01/17 09:49 Urine Methadone Screen Presumptive negative 07/01/17 09:49 Acetaminophen < 15.0 ug/mL (10.0-30.0) 07/01/17 08:30 Ur Barbiturates Screen Presumptive negative 07/01/17 09:49 Phenytoin 9.9 ug/mL (10.0-20.0) L 07/09/17 12:28 Ur Phencyclidine Scrn Presumptive negative 07/01/17 09:49 Ur Amphetamines Screen Presumptive negative 07/01/17 09:49 U Benzodiazepines Scrn Presumptive positive 07/01/17 09:49 Urine Cocaine Screen Presumptive negative 07/01/17 09:49 U Marijuana (THC) Screen Presumptive positive 07/01/17 09:49 Drugs of Abuse Note Disclamer 07/01/17 09:49 Ethylene Glycol <10.0 mcg/mL (<10.0) 07/01/17 10:32 Plasma/Serum Alcohol < 0.01 gm% (0-0.07) 07/01/17 08:30 Blood Type O POSITIVE 07/01/17 08:35 Antibody Screen Negative 07/01/17 08:35
[2017-07-12] MEDS: LOVENOX SUB-Q SCH (22:24)
[2017-07-12] MEDS: ZONEGRAN (NF) PO SCH (22:26)
[2017-07-13] MEDS: DILANTIN PO SCH ×3 (05:51→21:40)
[2017-07-13] MEDS: LEVAQUIN PO SCH (10:37)
[2017-07-13] MEDS: TRILEPTAL PO SCH ×2 (10:37→21:38)
--- NOTE | 2017-07-13 11:08 | Progress Note ---
Subjective - Reason for Consult Consult date: 07/13/17 Reason for consult: Psychiatry Follow-up - Chief Complaint Chief complaint: "Good morning" 37 YO Female with Unknown PMH presents to ED for evaluation. Psychiatry consulted because of possible overdose. Today patient is calm and cooperative during the assessment. The patient was more oriented and organized today than previous assessments. She was able to answer all my questions asked of her. Per collateral information from Justin Bay, a friend of the patient stated that the patient isn't "totally" at her baseline. He stated that the patient got up with assistance (unsteady gait) last night and used the bathroom. She stated that she would like to go back to [facility] once discharged. When asked about her medications and what may happen if she does not take them for the seizures she stated, "I could have a bad seizure and end up at the hospital." She denies taking any recreational drugs other than smoking marijuana prior to her admission to the hospital. She stated that she has anxiety and takes Klonopin. She denies SI/HI's and AVH's. She denies depression and any manic episodes in the past. Per the staff, no behavioral disturbance overnight. Mental Status Exam - Vital signs Last Vital Signs Temp 97.7 F 07/13/17 07:00 Pulse 72 07/13/17 09:35 Resp 18 07/13/17 09:35 BP 86/60 07/13/17 09:35 Pulse Ox 94 07/13/17 09:35 - Exam Narrative exam: MSE: Appearance: calm, cooperative Behavior: regular eye contact Speech: regular rate and tone Mood: "okay" Affect: congruent to mood Thought Process: logical Thought Content: denies SI/HI's and AVH's Motor Activity: sitting up in bed Cognition: A/O x3 Insight: fair Judgment: fair Assessment and Plan Impression: Substance Use DO (marijuana). Today patient is calm and cooperative during the assessment. Positive for marijuana/benzos. Patient improving. Medical: Acute Toxic Encephalopathy Recommendation/Plan: Neuro is following the patient. Discussed the importance to abstain from recreational drug use.
--- NOTE | 2017-07-13 14:01 | Progress Note ---
Assessment and Plan Assessment and plan: Patient is 37 yo woman with a history of Seizure disorder who presented with AMS with seizures at the [facility] bus station, requiring intubation. -Acute toxic metabolic encephalopathy, resolved -Status epilepticus, poa due to noncompliance with seizure medication, no keppra due to unwanted side effect, Dr Edmond Quevedo in [facility] ) this am as well. He stated that extensive EEG monitoring had been done which showed bifrontal seizure discharges, without laterality, correlating with her high pitched brief vocalizations with bilateral arm flexion that occurred 4 - 6 times an hour. She had been on Dilantin 100 mg TID , Trileptal 600 mg BID, and Klonopin 1mg TID (x decades), as well as THC which she felt helped her seizures. To this regiment he added low dose Zonisamide 100 mg, planning to ramp it up slowly every two weeks...but she was lost to follow up. -Polysubstance abuse, ?Flakka use, +thc use: Counseling done -Hypotension, pt is thin, maybe her baseline: Given a bolus of IV fluid -Acute hypoxic respiratory failure s/p intubation and extubation -Sepsis secondary to Aspiration pneumonitis: treated with abx, levaquin, last dose tomorrow -Hypokalemia, resolved DVT prophylaxis - On Lovenox Disposition, discharge with Justin tomorrow History Interval history: Patient was seen and examined. Follow-up on current diagnosis seizures which has resolved. Overnight uneventful. Patient denies any chest pain, shortness breath, nausea/vomiting or severe headaches. Imaging, nursing note, chart, labs and old chart reviewed. Discussed with patient. Boyfriend Justin is at bedside Hospitalist Physical - Physical exam Narrative exam: GEN: Thin frail BMI 18.5 NAD, AWAKE, ALERT, ORIENTATED 3 HEENT: NCAT, EOMI, PERRL, OP Clear NECK: supple, no adenopathy, no thyromegaly, no JVD CVS/HEART: RRR, NORMAL S1S2, NO JVD, pulses present bilaterally CHEST/LUNGS: CTA B, Symmetrical chest expansion, good air entry bilaterally GI/Abdomen: soft, NTND, good bowel sounds, no guarding or rebound /Bladder: no suprapubic tenderness, no CVA or paraspinal tenderness EXT/Skin: no c/c/e, no obvious rash MSK: FROM x 4 Neuro: CN 2-12 grossly intact, no new focal deficits, patient was able to walk to door without problems getting out of the bed Psych: calm - Constitutional Vitals: Temp Pulse Resp BP Pulse Ox 98.6 F 89 18 93/60 94 07/13/17 11:00 07/13/17 11:00 07/13/17 11:00 07/13/17 11:00 07/13/17 09:35 General appearance: Present: severe distress Results - Labs CBC & Chem 7: 07/06/17 05:27 07/09/17 12:28 Labs: Laboratory Last Values WBC 9.3 K/mm3 (4.5-11.0) 07/06/17 05:27 RBC 3.43 M/mm3 (3.65-5.03) L 07/06/17 05:27 Hgb 11.9 gm/dl (10.1-14.3) 07/06/17 05:27 Hct 33.6 % (30.3-42.9) D 07/06/17 05:27 MCV 98 fl (79-97) H 07/06/17 05:27 MCH 35 pg (28-32) H 07/06/17 05:27 MCHC 36 % (30-34) H 07/06/17 05:27 RDW 13.1 % (13.2-15.2) L 07/06/17 05:27 Plt Count 255 K/mm3 (140-440) 07/06/17 05:27 Lymph % (Auto) 20.5 % (13.4-35.0) 07/06/17 05:27 [place] % (Auto) 8.6 % (0.0-7.3) H 07/06/17 05:27 Eos % (Auto) 0.6 % (0.0-4.3) 07/06/17 05:27 Baso % (Auto) 0.8 % (0.0-1.8) 07/06/17 05:27 Lymph # 1.9 K/mm3 (1.2-5.4) 07/06/17 05:27 [place] # 0.8 K/mm3 (0.0-0.8) 07/06/17 05:27 Eos # 0.1 K/mm3 (0.0-0.4) 07/06/17 05:27 Baso # 0.1 K/mm3 (0.0-0.1) 07/06/17 05:27 Add Manual Diff Complete 07/03/17 06:00 Total Counted 100 07/03/17 06:00 Seg Neutrophils % 69.5 % (40.0-70.0) 07/06/17 05:27 Seg Neuts % (Manual) 46.0 % (40.0-70.0) 07/03/17 06:00 Band Neutrophils % 24.0 % 07/03/17 06:00 Lymphocytes % (Manual) 22.0 % (13.4-35.0) 07/03/17 06:00 Reactive Lymphs % (Man) 0 % 07/03/17 06:00 Monocytes % (Manual) 8.0 % (0.0-7.3) H 07/03/17 06:00 Eosinophils % (Manual) 0 % (0.0-4.3) 07/03/17 06:00 Basophils % (Manual) 0 % (0.0-1.8) 07/03/17 06:00 Metamyelocytes % 0 % 07/03/17 06:00 Myelocytes % 0 % 07/03/17 06:00 Promyelocytes % 0 % 07/03/17 06:00 Blast Cells % 0 % 07/03/17 06:00 Nucleated RBC % Not Reportable 07/03/17 06:00 Seg Neutrophils # 6.4 K/mm3 (1.8-7.7) 07/06/17 05:27 Seg Neutrophils # Man 9.7 K/mm3 (1.8-7.7) H 07/03/17 06:00 Band Neutrophils # 5.1 K/mm3 07/03/17 06:00 Lymphocytes # (Manual) 4.6 K/mm3 (1.2-5.4) 07/03/17 06:00 Abs React Lymphs (Man) 0.0 K/mm3 07/03/17 06:00 Monocytes # (Manual) 1.7 K/mm3 (0.0-0.8) H 07/03/17 06:00 Eosinophils # (Manual) 0.0 K/mm3 (0.0-0.4) 07/03/17 06:00 Basophils # (Manual) 0.0 K/mm3 (0.0-0.1) 07/03/17 06:00 Metamyelocytes # 0.0 K/mm3 07/03/17 06:00 Myelocytes # 0.0 K/mm3 07/03/17 06:00 Promyelocytes # 0.0 K/mm3 07/03/17 06:00 Blast Cells # 0.0 K/mm3 07/03/17 06:00 WBC Morphology Not Reportable 07/03/17 06:00 Hypersegmented Neuts Not Reportable 07/03/17 06:00 Hyposegmented Neuts Not Reportable 07/03/17 06:00 Hypogranular Neuts Not Reportable 07/03/17 06:00 Smudge Cells Not Reportable 07/03/17 06:00 Toxic Granulation Not Reportable 07/03/17 06:00 Toxic Vacuolation Not Reportable 07/03/17 06:00 Dohle Bodies Not Reportable 07/03/17 06:00 Pelger-Huet Anomaly Not Reportable 07/03/17 06:00 [place] Rods Not Reportable 07/03/17 06:00 Platelet Estimate Appears normal 07/03/17 06:00 Clumped Platelets Not Reportable 07/03/17 06:00 Plt Clumps, EDTA Not Reportable 07/03/17 06:00 Large Platelets Not Reportable 07/03/17 06:00 Giant Platelets Not Reportable 07/03/17 06:00 Platelet Satelliting Not Reportable 07/03/17 06:00 Plt Morphology Comment Not Reportable 07/03/17 06:00 RBC Morphology Not Reportable 07/03/17 06:00 Dimorphic RBCs Not Reportable 07/03/17 06:00 Polychromasia Not Reportable 07/03/17 06:00 Hypochromasia 1+ 07/03/17 06:00 Poikilocytosis Not Reportable 07/03/17 06:00 Anisocytosis 1+ 07/03/17 06:00 Microcytosis Not Reportable 07/03/17 06:00 Macrocytosis Not Reportable 07/03/17 06:00 Spherocytes Not Reportable 07/03/17 06:00 Pappenheimer Bodies Not Reportable 07/03/17 06:00 Sickle Cells Not Reportable 07/03/17 06:00 Target Cells Not Reportable 07/03/17 06:00 Tear Drop Cells Not Reportable 07/03/17 06:00 Ovalocytes Not Reportable 07/03/17 06:00 Helmet Cells Not Reportable 07/03/17 06:00 [place] Bodies Not Reportable 07/03/17 06:00 [place] Rings Not Reportable 07/03/17 06:00 Diamond Cells Not Reportable 07/03/17 06:00 Bite Cells Not Reportable 07/03/17 06:00 Crenated Cell Not Reportable 07/03/17 06:00 Elliptocytes Not Reportable 07/03/17 06:00 Acanthocytes (Spur) Not Reportable 07/03/17 06:00 Rouleaux Not Reportable 07/03/17 06:00 Hemoglobin C Crystals Not Reportable 07/03/17 06:00 Schistocytes Not Reportable 07/03/17 06:00 Malaria parasites Not Reportable 07/03/17 06:00 [place] Bodies Not Reportable 07/03/17 06:00 Hem Pathologist Commnt No 07/03/17 06:00 POC ABG pH 7.281 (7.35-7.45) L 07/01/17 09:55 POC ABG pCO2 37.8 (35-45) 07/01/17 09:55 POC ABG pO2 180 (80-105) H 07/01/17 09:55 POC ABG HCO3 17.8 07/01/17 09:55 POC ABG Total CO2 19 07/01/17 09:55 POC ABG O2 Sat 99 07/01/17 09:55 POC ABG Base Excess -9 07/01/17 09:55 FiO2 50 % 07/01/17 09:55 Sodium 139 mmol/L (137-145) 07/09/17 12:28 Potassium 4.6 mmol/L (3.6-5.0) 07/09/17 12:28 Chloride 102.4 mmol/L (98-107) 07/09/17 12:28 Carbon Dioxide 25 mmol/L (22-30) 07/09/17 12:28 Anion Gap 16 mmol/L 07/09/17 12:28 BUN 12 mg/dL (7-17) 07/09/17 12:28 Creatinine 0.5 mg/dL (0.7-1.2) L 07/09/17 12:28 Estimated GFR > 60 ml/min 07/09/17 12:28 BUN/Creatinine Ratio 24 % 07/09/17 12:28 Glucose 85 mg/dL (65-100) 07/09/17 12:28 POC Glucose 73 (70-105) 07/11/17 16:37 Ketones Quantitative Negative (Negative) 07/01/17 10:32 Osmolality 301 Mosm/kg 07/01/17 10:32 Lactic Acid 0.60 mmol/L (0.7-2.0) L 07/02/17 10:00 Calcium 8.9 mg/dL (8.4-10.2) 07/09/17 12:28 Phosphorus 1.80 mg/dL (2.5-4.5) L 07/02/17 17:59 Magnesium 1.90 mg/dL (1.7-2.3) 07/03/17 06:00 Total Bilirubin 0.20 mg/dL (0.1-1.2) 07/09/17 12:28 Direct Bilirubin < 0.2 mg/dL (0-0.2) 07/02/17 17:59 Indirect Bilirubin 0.1 mg/dL 07/02/17 17:59 AST 22 units/L (5-40) 07/09/17 12:28 ALT 26 units/L (7-56) 07/09/17 12:28 Alkaline Phosphatase 90 units/L (35-129) 07/09/17 12:28 Ammonia 47.0 umol/L (25-60) 07/10/17 17:14 Total Creatine Kinase 1279 units/L (30-135) H 07/04/17 09:09 CK-MB (CK-2) 8.4 ng/mL (0.0-4.0) H 07/01/17 10:32 CK-MB (CK-2) Rel Index 0.9 (0-4) 07/01/17 10:32 Total Protein 5.8 g/dL (6.3-8.2) L 07/09/17 12:28 Albumin 3.8 g/dL (3.9-5) L 07/09/17 12:28 Albumin/Globulin Ratio 1.9 % 07/09/17 12:28 Lipase 15 units/L (13-60) 07/02/17 17:59 Urine Color Red (Yellow) 07/01/17 09:49 Urine Turbidity Clear (Clear) 07/01/17 09:49 Urine pH 5.0 (5.0-7.0) 07/01/17 09:49 Ur Specific [place] 1.013 (1.003-1.030) 07/01/17 09:49 Urine Protein 30 mg/dl mg/dL (Negative) 07/01/17 09:49 Urine Glucose (UA) 150 mg/dL (Negative) 07/01/17 09:49 Urine Ketones Neg mg/dL (Negative) 07/01/17 09:49 Urine Blood Lg (Negative) 07/01/17 09:49 Urine Nitrite Neg (Negative) 07/01/17 09:49 Urine Bilirubin Neg (Negative) 07/01/17 09:49 Urine Urobilinogen < 2.0 mg/dL (<2.0) 07/01/17 09:49 Ur Leukocyte Esterase Neg (Negative) 07/01/17 09:49 Urine WBC (Auto) 1.0 /HPF (0.0-6.0) 07/01/17 09:49 Urine RBC (Auto) 1.0 /HPF (0.0-6.0) 07/01/17 09:49 U Epithel Cells (Auto) 1.0 /HPF (0-13.0) 07/01/17 09:49 Urine Mucus Few /HPF 07/01/17 09:49 Urine HCG, Qual Negative (Negative) 07/01/17 09:49 Salicylates < 0.3 mg/dL (2.8-20.0) L 07/01/17 08:30 Urine Opiates Screen Presumptive negative 07/01/17 09:49 Urine Methadone Screen Presumptive negative 07/01/17 09:49 Acetaminophen < 15.0 ug/mL (10.0-30.0) 07/01/17 08:30 Ur Barbiturates Screen Presumptive negative 07/01/17 09:49 Phenytoin 9.9 ug/mL (10.0-20.0) L 07/09/17 12:28 Ur Phencyclidine Scrn Presumptive negative 07/01/17 09:49 Ur Amphetamines Screen Presumptive negative 07/01/17 09:49 U Benzodiazepines Scrn Presumptive positive 07/01/17 09:49 Urine Cocaine Screen Presumptive negative 07/01/17 09:49 U Marijuana (THC) Screen Presumptive positive 07/01/17 09:49 Drugs of Abuse Note Disclamer 07/01/17 09:49 Ethylene Glycol <10.0 mcg/mL (<10.0) 07/01/17 10:32 Plasma/Serum Alcohol < 0.01 gm% (0-0.07) 07/01/17 08:30 Blood Type O POSITIVE 07/01/17 08:35 Antibody Screen Negative 07/01/17 08:35
--- NOTE | 2017-07-13 20:30 | Discharge Summary ---
Providers - Providers Date of Admission: 07/01/17 11:23 Date of discharge: 07/14/17 Attending physician: BENEDICTO ALONZO 07/01/17 08:45 Consult to Dietitian/Nutrition [CONS] Routine Physician Instructions: Reason For Exam: Reason for Consult: Write/Manage Tube Feeding 07/01/17 10:32 Speech Therapy Evaluation and Treat [CONS] Routine Reason For Exam: intubated pt 07/02/17 08:35 Consult to Mental Health [CONS] Routine Reason For Exam: drug over dose/ substance abuse Place consult to:: mental health Notified:: bo Was contact made?: Yes Time called:: 09:19 07/07/17 08:30 Consult to Physician [CONS] Routine Consulting Provider: MONICA BEASLEY Reason For Exam: seizure Place consult to:: neuro Notified:: n Comment:: added to list Primary care physician: [employer]OR Hospitalization Condition: Stable Hospital course: Patient is 37 yo woman with a history of Seizure disorder who presented with AMS with seizures at the [facility] [employer] station, requiring intubation. She was coming from [place], [place] and it was reported that she took the drug Flakka, which is not readily measured on routine UDS. -Acute toxic metabolic encephalopathy, resolved -Status epilepticus, poa due to noncompliance with seizure medication, no keppra due to unwanted side effect, Dr Edmond Quevedo in [facility] ) her Neurologist stated that she had extensive EEG monitoring which showed bifrontal seizure discharges, without laterality, correlating with her high pitched brief vocalizations with bilateral arm flexion that occurred 4 - 6 times an hour. She had been on Dilantin 100 mg TID, Trileptal 600 mg BID, and Klonopin 1mg TID (x decades), as well as THC which she felt helped her seizures. To this regimen, he added low dose Zonisamide 100 mg, planning to ramp it up slowly every two weeks...but she was lost to follow up. -Polysubstance abuse, ?Flakka use, +thc use: Counseling done -Hypotension, pt is thin, maybe her baseline: Given a bolus of IV fluid -Acute hypoxic respiratory failure s/p intubation and extubation -Sepsis secondary to Aspiration pneumonitis: treated with abx, levaquin, last dose tomorrow -Hypokalemia, resolved DVT prophylaxis - On Lovenox Disposition, discharge with boyfriend Justin back to [place]. I expect patient to continue to experience periodic seizures until Zonisamide is optimized but she has to follow up with Dr. Quevedo to optimize medical care, pt voiced agreement and understanding. Disposition: DC-01 TO HOME OR SELFCARE Time spent for discharge: 35 minutes Core Measure Documentation - Palliative Care Palliative Care/ Comfort Measures: Not Applicable - Core Measures Any of the following diagnoses?: none - VTE Discharge Requirements Deep Vein Thrombosis/Pulmonary Embolism Present on Admission: No Has pt received <5 days of overlap therapy or INR<2.0: No Anticoagulant overlap therapy prescribed at discharge: No Contraindication No Overlap Therapy order at DC: Not Indicated Exam - Physical Exam Narrative exam: GEN: Thin frail BMI 18.5 NAD, AWAKE, ALERT, ORIENTATED 3 HEENT: NCAT, EOMI, PERRL, OP Clear NECK: supple, no adenopathy, no thyromegaly, no JVD CVS/HEART: RRR, NORMAL S1S2, NO JVD, pulses present bilaterally CHEST/LUNGS: CTA B, Symmetrical chest expansion, good air entry bilaterally GI/Abdomen: soft, NTND, good bowel sounds, no guarding or rebound /Bladder: no suprapubic tenderness, no CVA or paraspinal tenderness EXT/Skin: no c/c/e, no obvious rash MSK: FROM x 4 Neuro: CN 2-12 grossly intact, no new focal deficits, patient was able to walk to door without problems getting out of the bed Psych: calm - Constitutional Vitals: Temp Pulse Resp BP Pulse Ox 98.7 F 95 H 18 93/59 94 07/13/17 16:00 07/13/17 16:00 07/13/17 16:00 07/13/17 16:00 07/13/17 09:35 Plan Activity: no driving until cleared by PCP, other (no strenous acitivites until cleared by pcp) Diet: regular Follow up with: PRIMARY CARE, [Primary Care Provider] - 3-5 Days Prescriptions: Zonisamide (Nf) [Zonegran (Nf)] 100 mg PO QHS #30 day ALBUTEROL NEB's [Proventil 0.083% NEBS] 2.5 mg IH Q3HRT PRN #30 day PRN Reason: Shortness Of Breath clonazePAM [KlonoPIN] 1 mg PO BID #30 day OXcarbazepine [Trileptal] 600 mg PO BID #30 day Phenytoin [Dilantin] 100 mg PO Q8HR #30 day
[2017-07-13] MEDS: ZONEGRAN (NF) PO SCH (21:38)
[2017-07-13] MEDS: LOVENOX SUB-Q SCH (21:39)
[2017-07-14] MEDS: DILANTIN PO SCH (05:25)
[2017-07-14 06:04] LABS: Hematocrit 40.6 % (30.3-42.9); Hemoglobin 13.9 gm/dl (10.1-14.3); Mean Corpuscular HGB Conc 34 % (30-34); Mean Corpuscular Hemoglobin 34 pg (28-32); Mean Corpuscular Volume 100 fl (79-97); Platelet Count 278 K/mm3 (140-440); Red Blood Count 4.06 M/mm3 (3.65-5.03); Red Cell Distribution Width 13.4 % (13.2-15.2); White Blood Count 6.8 K/mm3 (4.5-11.0)
[2017-07-14 06:25] LABS: Anion Gap 14 mmol/L; BUN/Creatinine Ratio 30; Blood Urea Nitrogen 18 mg/dL (7-17); Calcium 9.1 mg/dL (8.4-10.2); Carbon Dioxide 27 mmol/L (22-30); Chloride 100.1 mmol/L (98-107); Glucose 102 mg/dL (65-100); Potassium 4.2 mmol/L (3.6-5.0); Sodium 137 mmol/L (137-145)
[2017-07-14] MEDS: LEVAQUIN PO SCH (08:11)
[2017-07-14] MEDS: TRILEPTAL PO SCH (08:11)
[2017-07-14 08:38] VITALS: BP 96/61
== END 2017-07-14 08:46 | disposition home or self-care (01) | DRG 870 ==
LOC: ED 08:15 → CC1 11:23 → 4A 07-02 03:38 → 3A 07-08 15:17
PROVIDERS: ADMIT Internal Medicine; ATTEND Internal Medicine
PROC: 4A033R1 Measurement of Arterial Saturation, Peripheral, Percutaneous Approach (ICD-10-PCS; 2017-07-01)
PROC: 5A1955Z Respiratory Ventilation, Greater than 96 Consecutive Hours (ICD-10-PCS; principal; 2017-07-07)
PROC: 0BH17EZ Insertion of Endotracheal Airway into Trachea, Via Natural or Artificial Opening (ICD-10-PCS; 2017-07-07)
DX: A41.9 Sepsis, unspecified organism (principal); J69.0 Pneumonitis due to inhalation of food and vomit; J96.01 Acute respiratory failure with hypoxia; G92 Toxic encephalopathy; Z88.8 Allergy status to other drugs, medicaments and biological substances; T50.901A Poisoning by unspecified drugs, medicaments and biological substances, accidental (unintentional), initial encounter; Y92.89 Other specified places as the place of occurrence of the external cause; E87.6 Hypokalemia; G40.901 Epilepsy, unspecified, not intractable, with status epilepticus
CPT/HCPCS: 36415; 70450; 70551; 71010; 80048; 80053; 80074; 80185; 80307; 80320; 81001; 81025; 82010; 82140; 82550; 82553; 82693; 82803; 82962; 83690; 83735; 83930; 84100; 85007; 85025; 85027; 86850; 86900; 86901; 87040; 87070; 87205; 93005; 93010; 94002; 94760; 95819; 96365; 99291; 99292; G0480; J0295; J0610; J1165; J1200; J1451; J1630; J1650; J1953; J2060; J2310; J2704; J3010; J3480; J7030; J7040; J7042; J7050